=== PATIENT | female | born 1960 | race Caucasian/White ===

== ENCOUNTER 2018-01-29 09:38 | Outpatient (CLI) | payer SELFPAY ==
[2018-01-29 10:27] LABS: Abs Immature Grans 0.02 k/cumm (0.0-0.09); Absolute Basophil Count 0.08 k/cumm (0.0-0.2); Absolute Eosinophil Count 0.11 k/cumm (0.0-0.7); Absolute Lymphocyte Count 0.86 k/cumm (1.2-3.4); Absolute Neutrophil Count 5.59 k/cumm (1.2-6.7); Basophils % 1.1; Eosinophils % 1.5; HCT 31.1 % (36.0-46.0); Immature Grans % 0.3; Mean Corp. HGB Concentration 25.7 g/dL (32.0-36.0); Mean Corpuscular Hemoglobin 18.9 pg (27.0-33.0); Mean Corpuscular Volume 73.3 fL (80-95); Mean Platelet Volume 9.3 fL (8.0-11.0); Neutrophils % 78.1; Platelet Count 482 x1000/uL (130-400); RBC 4.24 m/cumm (4.00-5.20); RBC Distribution Width 29.9 % (11.7-14.6); Reticulocyte 2.7 % (0.5-2.4); White Blood Cell Count 7.16 k/cumm (4.4-10.8)
[2018-01-29 10:44] LABS: Anisocytosis 3+; Diff Comment RBC Morph Reviewed; Hypochromasia 3+; Microcytosis 3+; Polychromasia Present
[2018-01-29 10:45] LABS: Poikilocytes 3+
[2018-01-29 10:55] LABS: Anion Gap 9.8 mmol/L (3-11); BUN 15 mg/dL (7-18); Bilirubin, Total 0.4 mg/dL (0.2-1.0); CO2 26.2 mmol/L (21.0-32.0); CREATININE 0.76 mg/dL (0.55-1.02); Calcium 8.7 mg/dL (8.5-10.1); Chloride 106 mmol/L (98-107); Ferritin 18 ng/mL (8-388); Glucose 100 mg/dL (70-100); Potassium 3.8 mmol/L (3.5-5.1); Sodium 142 mmol/L (136-145)
[2018-01-29 10:57] LABS: Iron 10 ug/dL (50-175); Total Iron Binding Capacity 359 ug/dL (250-450); Transferrin Sat 3 % (15-50)
== END 2018-01-29 09:58 ==
PROVIDERS: PCP Nurse Practitioner Family; Visit Provider Nurse Practitioner Family
DX: R06.02 Shortness of breath (principal)
CPT/HCPCS: 36415; 80048; 86850; 86900; 86901; 86920; 82247; 82728; 83540; 83550; 84484; 85025; 85045

== ENCOUNTER 2018-01-29 11:02 | Emergency (ER) | payer SELFPAY ==
[2018-01-29 11:06] VITALS: BP 159/96; PULSE 88; RESP 18; TEMP 36.7; O2SAT 100
[2018-01-29 11:10] VITALS: RESP 18
--- NOTE | 2018-01-29 11:32 | ED.GENADUL_ITS ---
Discharge Plan Disposition Patient Disposition: OTHER Condition: Stable Discharge Details Chief Complaint: GenMedical Clinical Impression: Anemia, Chronic shortness of breath, Dyspnea on exertion Primary Care Provider: Teresa Trujillo ED Provider: Greta Vines Home Meds and New Rx's Prescriptions: Continue multivitamin 1 EACH tablet 1 tab PO DAILY RF: 0 ferrous sulfate 325 MG tablet 325 mg PO BID Qty: 60 RF: 0 Discharge Instructions Instructions: Dyspnea (ED), Anemia (ED) Additional Instructions: Go directly to the infusion room for your blood transfusion today. Call your primary care doctor's office today to order a blood test to recheck your hemoglobin for reevaluation in the office if needed. Return immediately to the emergency department with any worsening or new concerning symptoms. Discharge Data Discharge Physician: Greta Vines Medical Decision Making 57-year-old female with a history of iron deficiency anemia who presented from the PCP office for blood transfusion. Hemoglobin today per lab of 8. Patient chronic dyspnea on exertion for the past few weeks. She also admits to occasional left-sided chest burning, none at present. Discussed with patient at length the workup for this complaint in the emergency department. Patient states she feels that her symptoms are consistent with her previous anemia requiring a blood transfusion. I discussed with patient that with her occasional left-sided chest burning, and as she is present in the emergency department, an additional workup would include troponin, EKG and chest x-ray in addition to possible d-dimer due to her history of DVT. She states her history of DVT was several years ago that occurred after a blood transfusion, and she states she has chronic right leg swelling but states is no worse than usual. Patient would rather not have a d-dimer or chest x-ray at this time. Patient's vitals are within normal limits, she is in no acute respiratory distress and no other DVT/PE risk factors so I feel that this is reasonable. I discussed with patient the risks of and disability to a possible PE or additional respiratory cause and she is understanding and aware and would rather hold on these tests at this time. She is agreeable to a troponin and EKG. Patient had outpatient labs done today through PCP and note hemoglobin of 8 with normal white blood cell count and BMP. 1215 --troponin negative. EKG notes a rate of 79, sinus, left anterior fascicular block, no acute ST elevation or depression, and no acute change compared to previous. Discussed with infusion center, and they are agreeable to take patient for transfusion. Will order 1 unit PRBC transfusion and send to infusion room. Indra/w Shivani, nurse management and she will d/w [facility] regarding future plans for patients that may only need blood transfusion, to consider sending to infusion center, rather than incuring ER visit cost for patient. Patient to call her doctor's office today to schedule follow-up appointment for reevaluation and for recheck of her hemoglobin in the next few days. HPI General Mode of arrival: ambulatory . Date/Time Provider Initiated Documentation: 01/29/18 11:12 . Limitations to Documentation: no limitations . Information obtained by: patient . HPI Narrative: Patient is a 57-year-old female with a history of iron deficiency anemia with previous blood transfusions who presents for a blood transfusion. Patient states she has been having dyspnea on exertion for the past few weeks and discussed with her primary care doctor whom she saw in the office today. Hemoglobin at [facility] was 7.5. Patient was sent to the hospital for outpatient labs which noted a hemoglobin of 8. Patient was told to come to the emergency department for blood transfusion. Patient does admit to occasional left-sided chest burning states this is occurred only a few times at random and denies any at present. Related Data Home Medications Medication Instructions Recorded Confirmed multivitamin 1 tab PO DAILY 08/17/15 01/29/18 ferrous sulfate 325 mg PO BID #60 tab 08/18/15 01/29/18 Previous Rx's Medication Instructions Recorded ferrous sulfate 325 mg PO BID #60 tab 08/18/15 Allergies Allergy/AdvReac Type Severity Reaction Status Date / Time No Known Allergies Allergy Unverified 01/29/18 11:09 General Stated Complaint: GenMedical MEAGHAN: 3 Review of Systems Review of Systems All systems reviewed & are unremarkable except as noted in HPI and below Constitutional Denies chills, Denies excessive sweating, Denies fatigue, Denies fever(s), Denies weakness and Denies weight loss Eyes Reports system reviewed and no additional complaints, except as docu and Denies blurry vision ENT Denies vertigo, Denies dizziness, Denies otalgia, Denies nasal congestion, Denies sore throat and Denies throat swelling Cardiovascular Denies chest pain, Denies syncope, Denies rapid heart rate and Reports dyspnea Respiratory Reports dyspnea Gastrointestinal Denies abdominal pain, Denies diarrhea and Denies vomiting Genitourinary Denies hematuria, Denies dysuria and Denies flank pain Musculoskeletal Denies back pain and Denies joint swelling Integumentary/Breasts Denies lesions and Denies rash Neurologic Denies behavioral changes, Denies confusion, Denies vertigo, Denies dizziness, Denies syncope and Denies weakness Psychiatric Denies behavioral changes, Denies confusion and Denies depression Endocrine Denies excessive sweating and Denies fatigue Hematologic/Lymphatic Denies easy bruising and Denies lymphadenopathy Allergic/Immunologic Denies throat swelling PFSH Arthralgia DVT (deep venous thrombosis) Inguinal hernia Iron deficiency anemia Obesity (BMI 35.0-39.9 without comorbidity) Scoliosis Uterine fibroid Family History Mother Diabetes Anemia Father Diabetes Other Emphysema lung Colonoscopy - MAC EGD - MAC colo/egd, Dr Hebert 10/03/15 Family History Mother Diabetes Anemia Father Diabetes Other Emphysema lung Medical History Arthralgia DVT (deep venous thrombosis) Inguinal hernia Iron deficiency anemia Obesity (BMI 35.0-39.9 without comorbidity) Scoliosis Uterine fibroid Social History Smoking/Tobacco Use Status: Never Surgical History Colonoscopy - MAC EGD - MAC colo/egd, Dr Hebert 10/03/15 Social History Smoking/Tobacco Use Status: Never Exam Const General: cooperative, healthy appearing and no acute distress [facility] Head: normal to inspection Mouth: oral mucosae normal Eyes General: appearance normal, both eyes and all related structures Neck Neck: normal visual inspection Resp Effort & Inspection: normal respiratory effort and able to speak in complete sentences Cardio Rate: regular rate Rhythm: regular rhythm GI Palpation: soft, not firm, not rigid and nontender Auscultation: normal bowel sounds Skin General skin exam: no rashes or lesions noted Neuro General: alert, awake and oriented x3 Motor: muscle tone normal throughout Extrem General: edema (<1+ b/l LE, R worse than L) Psych Appearance: grossly normal Affect: normal affect Course Vital Signs Temperature 98.1 F 01/29/18 11:06 Pulse 88 01/29/18 11:06 Respiratory Rate 18 01/29/18 11:06 Blood Pressure 159/96 H 01/29/18 11:06 Pulse Oximetry 100 01/29/18 11:06 Temperature 98.1 F 01/29/18 11:06 Temperature Source Skin 01/29/18 11:06 Pulse 88 01/29/18 11:06 Respiratory Rate 18 01/29/18 11:10 Respiratory Effort Splinting 01/29/18 11:10 Respiratory Depth Normal 01/29/18 11:10 Respiratory Pattern Normal 01/29/18 11:10 Blood Pressure 159/96 H 01/29/18 11:06 Blood Pressure Position Sitting 01/29/18 11:06 Pulse Oximetry 100 01/29/18 11:06 Oxygen Delivery Method Room Air 01/29/18 11:06 Oxygen Flow Rate 0 01/29/18 11:06
[2018-01-29 12:12] LABS: Troponin I < 0.02 ng/mL (0.00-0.06)
== END 2018-01-29 13:10 | disposition other institution (70) ==
PROVIDERS: Emergency Provider Physician Assistant; PCP Nurse Practitioner Family
DX: D50.9 Iron deficiency anemia, unspecified (principal); R00.0 Tachycardia, unspecified
CPT/HCPCS: 86850; 86900; 86901; 86920; 93005; 99283; 84484; 93010

== ENCOUNTER 2018-01-29 13:09 | Outpatient (RCR) | payer MEDICAID, SELFPAY ==
[2018-01-29 13:36] VITALS: BP 115/71; PULSE 84; RESP 18; TEMP 36.7; O2SAT 98
[2018-01-29 13:38] VITALS: BP 126/78; PULSE 85; RESP 18; TEMP 36.5; O2SAT 99
[2018-01-29 13:53] VITALS: BP 153/73; PULSE 81; RESP 18; TEMP 36.4; O2SAT 97
[2018-01-29 14:23] VITALS: BP 122/65; PULSE 82; RESP 18; TEMP 36.6; O2SAT 97
[2018-01-29 15:19] VITALS: BP 129/62; PULSE 92; RESP 14; TEMP 36.3; O2SAT 99
== END 2018-02-24 23:59 | disposition home or self-care (01) ==
LOC: INF 13:09
PROVIDERS: PCP Nurse Practitioner Family; Visit Provider Physician Assistant
DX: D64.9 Anemia, unspecified (principal)
CPT/HCPCS: 36430; 86850; 86900; 86901; 86920; P9016

== ENCOUNTER 2018-02-05 01:37 | Outpatient (CLI) | payer MEDICAID, SELFPAY ==
--- NOTE | 2018-02-05 08:39 | DI.RAD_ITS ---
SYMPTOM/DIAGNOSIS: SOB, R06.02 FRONTAL AND LATERAL CHEST: No priors. There is poor inspiration. The heart size appears at the upper limits of normal in size. There is tortuosity of the thoracic aorta. There is a large hiatal hernia present. There are increased lung markings in the left perihilar region suspicious for an infiltrate. The right lung is clear. No effusions or pneumothoraces are identified. No findings to suggest congestive heart failure. Degenerative changes are seen in the spine. IMPRESSION: Left perihilar infiltrate. This may represent pneumonia or atelectasis. Please correlate clinically.
[2018-02-05 10:02] LABS: D-Dimer 1309 ng/mlFEU (<500)
[2018-02-05 10:43] LABS: NT-proBNP 232 pg/mL
== END 2018-02-05 01:57 ==
PROVIDERS: PCP Nurse Practitioner Family; Visit Provider Nurse Practitioner Family
DX: R06.02 Shortness of breath (principal); R91.8 Other nonspecific abnormal finding of lung field
CPT/HCPCS: 36415; 71046; 83880; 85379

== ENCOUNTER 2018-07-23 00:55 | Outpatient (CLI) | payer BC, SELFPAY ==
--- NOTE | 2018-07-23 17:06 | DI.MAMMO_ITS ---
SYMPTOM/DIAGNOSIS: SCREENING, Z12.31 MAMMOGRAMS: Mammograms were interpreted according to the usual protocol including computer analysis with CAD system, tomosynthesis and C view imaging. The breast tissue is primarily of fatty radiodensity. There is no evidence of a mass. There are no suspicious calcifications. There has been no significant interval change when compared with prior images. IMPRESSION: No evidence for malignancy, category 1. Yearly screening mammography is recommended. Breast density, category A. SA ASSESSMENT OF FINDINGS: Negative. Category 1. Patient will receive a letter notifying them of these results. BI-RAD category A. The breasts are almost entirely fatty.
== END 2018-07-23 01:15 ==
PROVIDERS: PCP Nurse Practitioner Family; Visit Provider Nurse Practitioner Family
DX: Z12.31 Encounter for screening mammogram for malignant neoplasm of breast (principal)
CPT/HCPCS: 77063; 77067

== ENCOUNTER 2018-12-10 10:03 | Outpatient (REF) | payer BC, SELFPAY ==
[2018-12-10 12:30] LABS: Abs Immature Grans 0.03 k/cumm (0.0-0.09); Absolute Basophil Count 0.05 k/cumm (0.0-0.2); Absolute Eosinophil Count 0.14 k/cumm (0.0-0.7); Absolute Lymphocyte Count 1.14 k/cumm (1.2-3.4); Absolute Monocyte Count 0.51 k/cumm (0.11-0.7); Absolute Neutrophil Count 3.95 k/cumm (1.2-6.7); Basophils % 0.9; Eosinophils % 2.4; HCT 45.8 % (36.0-46.0); HGB 14.4 g/dL (12.0-15.5); Immature Grans % 0.5; Lymphocytes % 19.6; Mean Corp. HGB Concentration 31.4 g/dL (32.0-36.0); Mean Corpuscular Hemoglobin 27.8 pg (27.0-33.0); Mean Corpuscular Volume 88.4 fL (80-95); Mean Platelet Volume 10.3 fL (8.0-11.0); Monocytes % 8.8; Neutrophils % 67.8; Platelet Count 347 x1000/uL (130-400); RBC 5.18 m/cumm (4.00-5.20); RBC Distribution Width 15.4 % (11.7-14.6); White Blood Cell Count 5.82 k/cumm (4.4-10.8)
[2018-12-10 13:51] LABS: Iron 78 ug/dL (50-175); Total Iron Binding Capacity 291 ug/dL (250-450); Transferrin Sat 27 % (15-50)
== END 2018-12-10 10:23 ==
LOC: NCHCN 10:03
PROVIDERS: PCP Nurse Practitioner Family; Visit Provider Nurse Practitioner Family
DX: D64.9 Anemia, unspecified (principal); D47.3 Essential (hemorrhagic) thrombocythemia; R53.83 Other fatigue
CPT/HCPCS: 82728; 83540; 83550; 85025

== ENCOUNTER 2019-03-18 12:13 | Outpatient (REF) | payer BC, SELFPAY ==
--- NOTE | 2019-03-18 09:00 | PAPFT_PTH ---
PATIENT: Lauren Paula [facility] U#:[id number] AGE/SX: 58/F ROOM: RE03/18/[address]: Aysha Palencia : 1960 BED: DIS: 03/18/2019 SPEC #: [id number] RECD: 03/18/19 12:56 STATUS: AMBER RECristela #: [id number] LAUREL: 03/18/19 09:[address]: Aysha Palencia DEPT: [facility] Cytology RECD BY: Jennifer Cheatham ENTERED: 03/18/19 12:56 SP TYPE: PAPFT OTHR DR: Teresa Trujillo Tissues: 1 - CX/ENDOCX FOR PAP SMEARS Procedures: PAP THIN PREP/U[facility] Screening HPV DNA PROBE Comments: [id number]
== END 2019-03-18 12:33 ==
LOC: NCHCN 12:13
PROVIDERS: PCP Nurse Practitioner Family; Visit Provider Nurse Practitioner Family
DX: Z00.00 Encounter for general adult medical examination without abnormal findings (principal); Z12.4 Encounter for screening for malignant neoplasm of cervix; Z01.419 Encounter for gynecological examination (general) (routine) without abnormal findings
CPT/HCPCS: 88142; 87624

== ENCOUNTER 2019-07-03 09:33 | Outpatient (REF) | payer BC, SELFPAY ==
[2019-07-03 21:02] LABS: HCT 42.4 % (36.0-46.0); HGB 13.5 g/dL (12.0-15.5); Mean Corp. HGB Concentration 31.8 g/dL (32.0-36.0); Mean Corpuscular Hemoglobin 28.2 pg (27.0-33.0); Mean Corpuscular Volume 88.7 fL (80-95); Mean Platelet Volume 10.2 fL (8.0-11.0); Platelet Count 359 x1000/uL (130-400); RBC 4.78 m/cumm (4.00-5.20); RBC Distribution Width 16.2 % (11.7-14.6); White Blood Cell Count 5.82 k/cumm (4.4-10.8)
[2019-07-03 21:18] LABS: Iron 293 ug/dL (50-170); Total Iron Binding Capacity 298 ug/dL (250-450); Transferrin Sat 98 % (15-50)
[2019-07-03 21:21] LABS: ALT 18 U/L (14-59); AST 19 U/L (15-37); Calculated LDL 119 mg/dL (<100); Cholesterol 179 mg/dL (<200); HDL Cholesterol 51 mg/dL (40-60); Triglyceride 48 mg/dL (<150)
== END 2019-07-03 09:53 ==
LOC: NCHCN 09:33
PROVIDERS: PCP Nurse Practitioner Family; Visit Provider Nurse Practitioner Family
DX: Z13.220 Encounter for screening for lipoid disorders (principal); D64.9 Anemia, unspecified; D47.3 Essential (hemorrhagic) thrombocythemia
CPT/HCPCS: 80061; 85027; 83540; 83550; 84450; 84460

== ENCOUNTER 2020-07-05 21:23 | Outpatient (REF) | payer BC, SELFPAY ==
[2020-07-05 21:02] LABS: HCT 41.2 % (36.0-46.0); HGB 12.4 g/dL (11.2-15.7); MCH 25.9 pg (27.0-33.0); MCHC 30.1 % (32.0-36.0); MPV 10.1 fL (8.0-11.0); Platelet Count 402 10^3/uL (130-400); RBC 4.79 10^6/uL (3.93-5.22); RDW 15.3 % (11.7-14.6); RDW-SD 48.3 fL; WBC 6.54 10^3/uL (4.4-10.8)
[2020-07-05 21:07] LABS: Anion Gap 8.9 mmol/L (3-11); BUN 14 mg/dL (7-18); CO2 27.1 mmol/L (21.0-32.0); CREATININE 0.8 mg/dL (0.55-1.02); Calcium 8.9 mg/dL (8.5-10.1); Chloride 105 mmol/L (98-107); Glucose 93 mg/dL (74-106); Potassium 4.5 mmol/L (3.5-5.1); Sodium 141 mmol/L (136-145)
== END 2020-07-05 21:24 | disposition home or self-care (01) ==
LOC: NCHCN 21:23
PROVIDERS: PCP Nurse Practitioner Family; Visit Provider Nurse Practitioner Family
DX: Z00.00 Encounter for general adult medical examination without abnormal findings (principal); Z13.228 Encounter for screening for other metabolic disorders; Z13.0 Encounter for screening for diseases of the blood and blood-forming organs and certain disorders involving the immune mechanism
CPT/HCPCS: 80048; 85027

== ENCOUNTER 2021-11-24 18:40 | Outpatient (REF) | payer BC, SELFPAY ==
[2021-11-24 19:13] LABS: Abs Immature Grans 0.06 10^3/uL (0.0-0.06); Absolute Eosinophil Count 0.16 10^3/uL (0.0-0.7); Absolute Lymphocyte Count 1.32 10^3/uL (1.2-3.4); Absolute Monocyte Count 0.78 10^3/uL (0.1-0.8); Absolute Neutrophil Count 6.74 10^3/uL (1.2-6.7); Basophils % 1.1; Eosinophils % 1.7; HCT 32.9 % (36.0-46.0); HGB 8.8 g/dL (11.2-15.7); Immature Grans % 0.7; Lymphocytes % 14.4; MCH 18.6 pg (27.0-33.0); MCHC 26.7 % (32.0-36.0); MCV 70 fL (80-95); Monocytes % 8.5; Neutrophils % 73.6; Platelet Count 435 10^3/uL (130-400); RBC 4.73 10^6/uL (3.93-5.22); RDW 33.5 % (11.7-14.6); RDW-SD 77.9 fL; WBC 9.16 10^3/uL (4.4-10.8)
[2021-11-24 19:38] LABS: Anisocytosis 2+; Hypochromasia 3+; Microcytosis 3+; Polychromasia Present
[2021-11-24 20:27] LABS: Iron 17 ug/dL (50-170); Total Iron Binding Capacity 375 ug/dL (250-450); Transferrin Sat 5 % (15-50)
== END 2021-11-24 18:41 | disposition home or self-care (01) ==
LOC: NCHCN 18:40
PROVIDERS: PCP Nurse Practitioner Family; Visit Provider Nurse Practitioner Family
DX: D64.9 Anemia, unspecified (principal)
CPT/HCPCS: 83540; 83550; 85025

== ENCOUNTER 2021-12-15 14:28 | Outpatient (REF) | payer BC, SELFPAY ==
[2021-12-15 14:59] LABS: HCT 36.1 % (36.0-46.0); HGB 9.9 g/dL (11.2-15.7); MCV 77 fL (80-95); Platelet Count 416 10^3/uL (130-400); RBC 4.72 10^6/uL (3.93-5.22); WBC 6.64 10^3/uL (4.4-10.8)
[2021-12-15 15:22] LABS: Ferritin 41 ng/mL (8-252)
[2021-12-15 15:24] LABS: MCHC 27.4 % (32.0-36.0)
[2021-12-15 16:10] LABS: Iron 22 ug/dL (50-170)
== END 2021-12-15 14:29 | disposition home or self-care (01) ==
LOC: NCHCN 14:28
PROVIDERS: PCP Nurse Practitioner Family; Visit Provider Family Medicine
DX: D64.9 Anemia, unspecified (principal)
CPT/HCPCS: 85027; 82728; 83540

== ENCOUNTER 2022-06-22 14:41 | Outpatient (REF) | payer BC, SELFPAY ==
[2022-06-22 21:20] LABS: HCT 45.5 % (36.0-46.0); HGB 14.3 g/dL (11.2-15.7); MCH 27.5 pg (27.0-33.0); MCHC 31.4 % (32.0-36.0); MCV 88 fL (80-95); MPV 10.1 fL (8.0-11.0); Platelet Count 310 10^3/uL (130-400); RDW 15.4 % (11.7-14.6); RDW-SD 50.2 fL; WBC 6.25 10^3/uL (4.4-10.8)
[2022-06-22 21:32] LABS: Hemoglobin A1C 5.8 % (<5.7); Iron 38 ug/dL (50-170); Total Iron Binding Capacity 285 ug/dL (250-450); Transferrin Sat 13 % (15-50)
[2022-06-22 22:02] LABS: ALT 24 U/L (14-59); AST 18 U/L (15-37); Albumin 3.7 g/dL (3.4-5.0); Alkaline Phosphatase 82 U/L (46-116); Anion Gap 8.2 mmol/L (3-11); BUN 15 mg/dL (7-18); Bilirubin, Total 0.3 mg/dL (0.2-1.0); CO2 27.8 mmol/L (21.0-32.0); CREATININE 0.9 mg/dL (0.55-1.02); Calcium 9.3 mg/dL (8.5-10.1); Calculated LDL 126 mg/dL (<100); Chloride 105 mmol/L (98-107); Cholesterol 187 mg/dL (<200); Estimated GFR 72.28 (mL/min/1.73m2); Glucose 107 mg/dL (74-106); HDL Cholesterol 47 mg/dL (40-60); Potassium 4.3 mmol/L (3.5-5.1); Sodium 141 mmol/L (136-145); TSH (W/Ref FT4) 1.61 uIU/mL (0.36-3.74); Total Protein 7.2 g/dL (6.4-8.2); Triglyceride 74 mg/dL (<150); Vitamin B12 410 pg/mL (193-986)
== END 2022-06-22 14:42 | disposition home or self-care (01) ==
LOC: NCHCN 14:41
PROVIDERS: PCP Nurse Practitioner Family; Visit Provider Nurse Practitioner Family
DX: D50.9 Iron deficiency anemia, unspecified (principal); E78.5 Hyperlipidemia, unspecified; R20.2 Paresthesia of skin; R73.09 Other abnormal glucose
CPT/HCPCS: 80053; 80061; 85027; 82607; 83036; 83540; 83550; 84443

== ENCOUNTER 2022-08-30 12:25 | Outpatient (REF) | payer BC, SELFPAY ==
[2022-08-30 15:16] LABS: HGB 13.8 g/dL (11.2-15.7); MCH 28.6 pg (27.0-33.0); MCHC 32.9 % (32.0-36.0); MCV 87 fL (80-95); Platelet Count 359 10^3/uL (130-400); RBC 4.82 10^6/uL (3.93-5.22); RDW 14.2 % (11.7-14.6); RDW-SD 45.3 fL; WBC 6.63 10^3/uL (4.4-10.8)
[2022-08-30 15:45] LABS: Iron 27 ug/dL (50-170)
== END 2022-08-30 12:26 | disposition home or self-care (01) ==
LOC: NCHCN 12:25
PROVIDERS: PCP Nurse Practitioner Family; Visit Provider Nurse Practitioner Family
DX: D50.9 Iron deficiency anemia, unspecified (principal)
CPT/HCPCS: 85027; 83540

== ENCOUNTER 2023-02-27 16:09 | Outpatient (REF) | payer BC, SELFPAY ==
[2023-02-27 20:49] LABS: HCT 40.7 % (36.0-46.0); HGB 12.6 g/dL (11.2-15.7); MCH 26.4 pg (27.0-33.0); MCV 85 fL (80-95); MPV 9.6 fL (8.0-11.0); Platelet Count 384 10^3/uL (130-400); RBC 4.77 10^6/uL (3.93-5.22); RDW 16.2 % (11.7-14.6); RDW-SD 50.8 fL; WBC 8.27 10^3/uL (4.4-10.8)
[2023-02-27 20:58] LABS: Iron 98 ug/dL (50-170); Total Iron Binding Capacity 308 ug/dL (250-450); Transferrin Sat 32 % (15-50)
[2023-02-27 21:11] LABS: Ferritin 21 ng/mL (8-252)
== END 2023-02-27 16:10 | disposition home or self-care (01) ==
LOC: NCHCN 16:09
PROVIDERS: PCP Nurse Practitioner Family; Visit Provider Nurse Practitioner Family
DX: D50.9 Iron deficiency anemia, unspecified (principal)
CPT/HCPCS: 85027; 82728; 83540; 83550

== ENCOUNTER 2023-10-08 15:16 | Outpatient (REF) | payer BC, SELFPAY ==
--- OUTSIDE RECORDS SUMMARY | 2023-10-08 15:17 | XMS_ITS | Data Portability ---
Author Organization [place] - [facility], [facility] Address Ludin Uribe [facility] [place] [address] Assessment Encounter Date Assessment Date Assessment LastModified by Organization Details LastModified Time 09/04/2023 09/04/2023 09/04/2023: Irma hendrickson is here today with new onset right leg pain accompanied by mild shortness of breath and light headedness. She is anticoagulated on eliquis 2.5 mg twice daily however DVT and PE should be considered. She will go to [facility] today for d-dimer. I have also order US of the right leg due to calf size discrepancy. If d-dimer is negative I don't think we need to move forward with chest CTA. On exam today she has significant pain with palpation over the right greater trochanter potentially representing bursitis. We agree to move forward with non-emergent x-ray of the right hip. [email or web address] Not available 09/04/2023 10:47:56 Plan of Treatment Reminders Order Date Submit Date Provider Last Modified By Organization Details Last Modified Time Details Appointments hospital follow up 2023 11:30A M Not available Not available Not available Office Visit 30 2023 10:00A M Not available Not available Not available Lab hemoglobi n A1C, fingersti ck 2023 024 [email or web address] [facility], [address], [place], [address], 02/28/2023 11:45:38 noninvasi ve colorecta l cancer DNA + occult blood screening , QL, stool 2023 024 [email or web address] (Cologuard Orders Only), [address], [place], [address], 02/27/2023 23:30:42 CBC 2023 024 [email or web address] [facility] (Registration ), [address] [place] [address] [place], [address], 02/28/2023 11:45:38 iron + TIBC + ferritin, serum 2023 024 [email or web address] [facility] (Registration ), [address] [place] [address] [place], [address], 02/28/2023 11:45:38 CMP, serum or plasma [address] [facility], [address] [place] [address], [address], 09/24/2023 15:28:50 noninvasi ve colorecta l cancer DNA + occult blood screening , QL, stool 2023 024 [place] [address] [facility] (Cologuard Orders Only), [address], [address], [place], [address], 10/08/2023 07:19:03 D-dimer, quant, plasma [address] [facility], [address] [place] [address], [address], 09/04/2023 17:23:51 Referral None recorded. Procedures None recorded. Surgeries None recorded. Imaging XR, hip, unilatera l, 2 or [address] [facility] - Radiology, [address] [place] [address], [address], 09/09/2023 14:28:57 US, doppler, venous [address] - Radiology, [address] [place] [address], [address], 09/11/2023 08:33:17 Medication Orders None recorded. Patient TargetsNo targets recorded. Patient InstructionsNo instructions recorded. Reason for Referral None Reported. Results Created Date Observation Date Name Description Value Unit Range Abnormal Flag LastModifiedBy Organization Detail LastModifiedTime 03/01/2023 COLOG UARD cologuard result Cancel led - Duplic ate Order not applic able Not Available [facility] (Cologuard Orders Only) [address], [place], [address], 03/01/2023 12:59:23 02/27/2023 COLOG UARD cologuard result Cancel led - Duplic ate Order not applic able Not Available [facility] (Cologuard Orders Only) [address], [place], [address], 02/27/2023 23:30:41 02/27/19 24 02/27/2023 COMPL ETE BLOOD COUNT NO DIFF WBC 8.27 10_3/ uL 4.4-10 .8 normal Not Available [address] [place], [address] 02/27/2023 20:55:32 02/27/19 24 02/27/2023 COMPL ETE BLOOD COUNT NO DIFF RBC 4.77 10_6/ uL 3.93-5 .22 normal Not Available [address] [place], [address] 02/27/2023 20:55:32 02/27/19 24 02/27/2023 COMPL ETE BLOOD COUNT NO DIFF HGB 12.6 g/dL 11.2-1 5.7 normal Not Available [address] [place], [address] 02/27/2023 20:55:32 02/27/19 24 02/27/2023 COMPL ETE BLOOD COUNT NO DIFF HCT 40.7 % 36.0-4 6.0 normal Not Available [address] [place], [address] 02/27/2023 20:55:32 02/27/19 24 02/27/2023 COMPL ETE BLOOD COUNT NO DIFF MCV 85 fL 80-95 normal Not Available Chuy gamino [address] [place], [address] 02/27/2023 20:55:32 02/27/19 24 02/27/2023 COMPL ETE BLOOD COUNT NO DIFF MCH 26.4 pg 27.0-3 3.0 low Not Available [address] [place], [address] 02/27/2023 20:55:32 02/27/19 24 02/27/2023 COMPL ETE BLOOD COUNT NO DIFF MCHC 31.0 % 32.0-3 6.0 low Not Available [address] [place], [address] 02/27/2023 20:55:32 02/27/19 24 02/27/2023 COMPL ETE BLOOD COUNT NO DIFF RDW 16.2 % 11.7-1 4.6 high Not Available [address] [place], [address] 02/27/2023 20:55:32 02/27/19 24 02/27/2023 COMPL ETE BLOOD COUNT NO DIFF platelet count 384 10_3/ uL 130-40 0 normal Not Available [address] [place], [address] 02/27/2023 20:55:32 02/27/19 24 02/27/2023 COMPL ETE BLOOD COUNT NO DIFF MPV 9.6 fL 8.0-11 .0 normal Not Available [address] [place], [address] 02/27/2023 20:55:32 02/27/19 24 02/27/2023 IRON/ IBCT iron 98 ug/dL 50-170 normal Not Available Chuy gamino [address] [place], [address] 02/27/2023 21:01:07 02/27/19 24 02/27/2023 IRON/ IBCT total iron binding capacity 308 ug/dL 250-45 0 normal Not Available [address] [place], [address] 02/27/2023 21:01:07 02/27/19 24 02/27/2023 IRON/ IBCT transferrin sat 32 % 15-50 normal Not Available Silvinoer n [facility] [address] [place], [address] 02/27/2023 21:01:07 02/27/19 24 02/27/2023 DREW TIN ferritin 21 NG/mL 8-252 normal Not Available Chuy gamino [facility] [address] [facility] [place], [address] 02/27/2023 21:14:10 02/27/19 24 02/27/2023 hemog lobin A1C, finge rstic k HGBA1C 6.6 % <5.7 Not Available [address], [address], 02/27/2023 13:21:23 09/09/19 24 09/09/2023 XR, hip, unila teral , 2 or 3 view No observ ation record ed. [email or web address] [facility] [address] [place], [address], 09/11/2023 15:12:02 09/09/19 24 09/09/2023 US, duple x, venou s, lower extre mity, unila teral No observ ation record ed. [email or web address] [facility] [address] [place], [address], 09/11/2023 15:11:18 Result Notes None recorded. Problems Name Status Onset Date Resolution Date Notes Provider Name and Address Organization Details Recorded Time History of thromboembolis m Active 2011 Problem Code: Z86.718; Problem Code Type: ICD-10; [address], [place], [address], [facility] 4 12:51:44 Inguinal hernia Active 2011 Problem Code: K40.90; Problem Code Type: ICD-10; [address], [place], [address], [facility] 4 12:52:37 Uterine leiomyoma Active 2011 Problem Code: D25.9; Problem Code Type: ICD-10; [address], [place], [address], [facility] 4 12:52:31 Scoliosis deformity of spine Active 201103/19/2019 - Comments only - Leann EGAN - reports the back pain has not been an issue recently. Problem Code: M41.9; Problem Code Type: ICD-10; [address], [place], [address], [facility] 4 12:51:56 Carpal tunnel syndrome of right wrist Active 2011 Problem Code: G56.01; Problem Code Type: ICD-10; [address], [place], [address], [facility] 4 12:51:50 Obesity Active 201312/29/2019 - Comments only - Leann EGAN - Lauren has been trying to reduce carbohydrate intake. Problem Code: E66.9; Problem Code Type: ICD-10; [address], [place], [address], [facility] 4 12:52:01 Cramp in lower limb associated with sleep Active 201412/29/2019 - Comments only - Leann EGAN - Improved with increased hydration. Problem Code: G47.62; Problem Code Type: ICD-10; [address], [place], [address], [facility] 4 12:52:06 History of pulmonary embolus Active 2017 Problem Code: Z86.711; Problem Code Type: ICD-10; [address], [place], [address], [facility] 4 12:51:39 Long-term current use of anticoagulant Active 201707/05/2020 - Comments only - Leann EGAN - Continue Eliquis. No bleeding or bruising issues at this time. BMP for medication monitoring. Problem Code: Z79.01; Problem Code Type: ICD-10; [address], [place], [address], [facility] 4 12:49:33 Pain in thoracic spine Active 201806/22/2022 - Comments only - Leann EGAN - Patient states that back pain has not been an issue lately. Problem Code: M54.9; Problem Code Type: ICD-10; [address], [place], [address], [facility] 4 12:52:50 Essential thrombocythemi a Active 201812/29/2019 - Comments only - Leann EGAN - Normal platlet count 06/2019. Problem Code: D47.3; Problem Code Type: ICD-10; [address], [place], [address], [facility] 4 12:51:11 Iron deficiency anemia Active 2021 Problem Code: D50.9; Problem Code Type: ICD-10; [address], [place], [address], [facility] 4 12:50:58 Hyperlipidemia Active 202206/22/2022 - Comments only - Leann EGAN - Lipids with today's bloodwork. Not fasting. Patient did have cheerios this morning. Problem Code: E78.5; Problem Code Type: ICD-10; [address], [place], [address], [facility] 4 12:52:22 Prediabetes Active 2022 Problem Code: R73.03; Problem Code Type: ICD-10; [address], [place], [address], [facility] 4 12:52:11 Deep venous thrombosis Completed 201111/21/2022 11/01/2016 - Comments only - Teresa Trujillo APRN - monitor for recurrences. [address], [place], [address], [facility] 4 12:53:19 Pulmonary embolism Completed 201711/21/2022 Problem Code: I26.99; Problem Code Type: ICD-10; [address], [place], [address], [facility] 4 12:54:14 Blood chemistry outside reference range Active [address], [place], [address], [facility] 4 12:50:50 Pain in right lower limb Active [address], [place], [address], [facility] 4 09:37:35 Pain in right hip joint Active [address], [place], [address], [facility] 4 09:37:44 Anemia Active [address], [place], [address], [facility] 4 11:52:15 Problem Notes None recorded. Procedures Surgical History None recorded. Imaging Results Imaging Date Name Status [facility]Modified by [facility] Details LastModified Time 09/09/2023 XR, hip, unilateral, 2 or 3 view completed [email or web address] [facility] [address] [facility], [place], [address], 09/11/2023 15:12:02 09/09/2023 US, duplex, venous, lower extremity, unilateral completed [email or web address] [facility] [address] [facility], [place], [address], 09/11/2023 15:11:18 Procedure Notes None recorded. Medical Equipment None Reported. Medications Name Sig Start Date Stop Date Status Note LastModified by Organization Details LastModified Time famotidin e 40 mg tablet Take 1 tablet by mouth every night as needed 06/22 completed Not Available Not Available Not Available pantopraz ole 40 mg tablet,de layed release TAKE 1 TABLET BY MOUTH TWICE DAILY active Not Available Not Available No t Available erythromy radhika 5 mg/gram (0.5 %) eye ointment Apply 1 a thin layer into affected eye four times a day 1 cm ribbon into affected eye 4 times daily for 7 days 07/05 completed Not Available Not Available Not Available ferrous gluconate 240 mg (27 mg iron) tablet Take 1 tablet by mouth once a day 07/29 completed Not Available Not Available Not Available warfarin 5 mg tablet Take 1 1/2 TABLET AT 5 pm by mouth daily or as directed 02/21 completed Not Available Not Available Not Available Aspir-81 mg tablet,de layed release take 1 tab daily 08/18 completed Not Available Not Available Not Available multivita min capsule take 1 tab daily 06/29 completed Not Available Not Available Not Available enoxapari n 100 mg/mL subcutane ous syringe Inject 150 mg 1mg/kg subcutan eously daily until INR 2.0 - 3.0 02/12 completed Not Available Not Available Not Available Asprin Ec Low Dose 81 mg tablet,de layed release 1TAB daily 2011 active Not Available Not Available Not Avai lable cyclobenz aprine 5 mg tablet Take one tablet by mouth every 8 hours as needed for back pain. 04/07 completed ER Not Available Not Available Not Available iron 1TAB daily 08/30 completed Not Available Not Available Not Available Multivita mins 1 TAB daily 2011 active Not Available Not Available Not Avai lable FeroSul 325 mg (65 mg iron) tablet TAKE 1 TABLET BY MOUTH ONCE DAILY active patient is not taking this one. she takes a OTC one that is a lower dose Not Available Not Available Not Available Xarelto 10 mg tablet Take one tablet by mouth daily. 03/18 completed Not Available Not Available Not Available Eliquis 5 mg tablet Take 1 tablet by mouth twice daily. 2017 active Not Available Not Available Not Avai lable Eliquis 2.5 mg tablet Take 1 tablet by mouth twice daily 2023 active held til after EDG tomorrow 10/08 Not Available Not Available Not Available Vitals Date Recorded Body height Body mass index (BMI) Body weight Body temperature Heart rate Oxygen saturation Oxygen saturation in Arterial blood by Pulse oximetry Systolic blood pressure Diastolic blood pressure Provider Name and Address Organization Details Last Updated DateTime 4 161.29 cm 38.7 kg/m2 715256. 51 g 97.3 [degF] 78 /min 98 % 98 % 130 mm[Hg] 78 mm[Hg] CHIOMA SPANN MA [facility] 4 13:01:11 Date Recorded Body height Body mass index (BMI) Body weight Body temperature Oxygen saturation Oxygen saturation in Arterial blood by Pulse oximetry Heart rate Systolic blood pressure Diastolic blood pressure Provider Name and Address Organization Details Last Updated DateTime 4 161.29 cm 41 kg/m2 315265. 64 g 97.3 [degF] 99 % 99 % 60 /min 120 mm[Hg] 72 mm[Hg] Rafaela Chappell RN [facility] 4 09:12:04 Date Recorded Body height Body mass index (BMI) Body weight Body temperature Oxygen saturation Oxygen saturation in Arterial blood by Pulse oximetry Heart rate Systolic blood pressure Diastolic blood pressure Provider Name and Address Organization Details Last Updated DateTime 4 161.29 cm 40.8 kg/m2 269957. 61 g 97 [degF] 100 % 100 % 74 /min 138 mm[Hg] 86 mm[Hg] CHIOMA SPANN MA [facility] 11:33:49 Social History None recorded. Functional Status None recorded. Mental Status None recorded. Family History Relationship Description Onset Age of this Age Resolved Age Notes Mother Family history of di abetes mellitus type 1 Notes:*Problem: 05/08/13 Moth er: 64 , of ecoli infection. Type 2 DM, anemic Father: age 75, Type 2 DM, smoker, OA , emphysema Sisters: None Brothers: 2 brothers, one older and one younger, basically healthy Children: one son and one daughter healthy - son and john Family History of: Hypertension: Yes Hyperlipidemia: Yes Coronary heart disease: Yes Diabetes mellitus: Yes Breast cancer: No Colorectal cancer: No Prostate cancer: No Alcoholism: Yes Mental illness: No Other: No Medical History No medical history recorded. Gynecological HistoryNo gynecological history recorded. Obstetrics History GPAL:G 0 P 0 0 0 0 Immunizations Vaccine Type Date Status Provider Name and Address Organization Details Recorded Time COVID-19, mRNA, LNP-S, PF, rita-sucrose, 30 mcg/0.3 mL 02/27/2023 completed Latoya Cates RN [facility], [facility] 02/28/2023 08:57:17 Influenza, split virus, quadrivalent, PF 02/27/2023 completed [address], [place], [address], [facility] 02/27/2023 19:38:22 Td (adult), 2 Lf tetanus toxoid, preservative free, adsorbed 06/22/2022 completed Not Available [facility] 01/04/2023 05:24:45 Tdap 07/16/2012 completed Not Available [facility] 05:24:45 Influenza, split virus, quadrivalent, PF 12/15/2021 completed Not Available [facility] 01/04/2023 05:24:45 Influenza, split virus, quadrivalent, PF 12/29/2019 completed Not Available [facility] 01/04/2023 05:24:45 Influenza, split virus, quadrivalent, PF 01/23/2021 completed Not Available [facility] 01/04/2023 05:24:45 zoster recombinant 07/05/2020 completed Not Available [facility] 01/04/2023 05:24:45 zoster recombinant 12/15/2021 completed Not Available [facility] 01/04/2023 05:24:45 COVID-19, mRNA, LNP-S, PF, 100 mcg/0.5mL dose or 50 mcg/0.25mL dose 03/16/2020 completed Not Available [facility] 01/05/20 05:24:46 COVID-19, mRNA, LNP-S, PF, 100 mcg/0.5mL dose or 50 mcg/0.25mL dose 04/13/2020 completed Not Available [facility] 01/05/20 05:24:46 COVID-19, mRNA, LNP-S, PF, 100 mcg/0.5mL dose or 50 mcg/0.25mL dose 01/23/2021 completed Not Available [facility] 01/05/20 05:24:46 Past Encounters Encounter ID Performer Location Encounter Start Date Encounter Closed Date Diagnosis/Indication Diagnosis SNOMED-CT Code [id number] JIGNESH GUILLEN [address] [address] 02/27/2023 12:44:59 02/27/2023 15:47:13 Prediabetes 578403400 Iron defic iency anemia 90744291 Active or passive immunization 454412705 History of thromboembolism 487181567 Screening for malignant neoplasm of colon 980834350 [id number] JIGNESH GUILLEN [address] [address] 09/04/2023 08:50:33 09/04/2023 10:51:41 Screening for malignant neoplasm of colon 233872485 Pain in ri ght lower limb 762711117 Pain in ri ght hip joint 853812654320252 Prediabetes 924456654 [id number] Latoya Cates RN [address] [address] 10/08/2023 11:14:17 10/08/2023 12:09:57 Anemia 396499051 Health Concerns Section Related Observation LastModified by Organization Detai ls LastModified Time None Recorded Concern Status LastModified by Organization Details LastModified Time None Recorded Advance Directives Directive None Recorded Payers Encounter Date Sequence Insurance Name Policy Number Policy Rocha Covered Member ID Rocha Member ID Guarantor Name 02/27/2023 1 [place] [employer] [place] Lauren Paula [id number] Lauren Paula 09/04/2023 1 [place] Lauren Paula [id number] Lauren Paula Notes Date Note Type Note Provider Name and Address Organization Details Recorded Time 09/04/2023 text/html HPI Notes: For t he past couple of weeks Lauren has noticed right leg pain that is only noticeable at night. The pain sometimes feels as though it is originating in the lower leg and at other times feels as though it is originating in the hip. It has not been bothering her during the day. Since the pain started she feels more short of breath than her norm and has some light headedness. LEANN FRANCE, FIN[employer]PECTOR [employer] [address], [place], [address], [facility]. 09/04/2023 10:48:28 OBGyn Episode No OBEpisode recorded.
--- OUTSIDE RECORDS SUMMARY | 2023-10-08 15:17 | XMS_ITS | Encounter Summary ---
Author Organization [facility] Address [facility] [place] [address] Care Team Providers Care Commercial Sewing Instructor Name Role Phone RonnieMariam masonhryn [place]ERS Primary Care Provider [phone] Encounter Details Date Type Department Care Team (Late st Contact Info) Description 09/23/2023 Telephone [place] [phone] Indu Chauhan MD [facility] DR HEMATOLOGY/[place] [address] Social History Tobacco Use Types Packs/Day Years Used Date Smoking Tobacco: Never Smokeless Tobacco: Never Sex and Gender Information Value Date Recorded Sex Assigned at Not on file Gender Identity Not on file Sexual Orientation Not on file documented as of this encounter Miscellaneous Notes * Telephone Encounter - Indu Chauhan MD - 09/23/2023 6:08 PM EDT Got a page from [facility], on account of transfusion reaction on this patient after receiving 238mL of red blood cell. Developed hypotension BP of 80/50 from 110/55, chills, headache and nausea temperature where pretransfusion at 36.8 with transfusion 36.7 and posttransfusion 36.7. Recommended redirecting page to transfusion medicine, for further management recs. documented in this encounter Plan of Treatment Not on file documented as of this encounter Visit Diagnoses Not on filedocumented in this encounter Care Teams Commercial Sewing Instructor Relationship Specialty Start Date End Date Teresa Trujillo APRN [address] [place] [address] PCP - General Family Medicine 02/14/18 documented as of this encounter
--- OUTSIDE RECORDS SUMMARY | 2023-10-08 15:17 | XMS_ITS | Clinical Summary ---
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 Active apixaban (ELIQUIS) 5 mg Tablet Take 5 mg by mouth 2 times daily. Active Active Problems Problem Noted Date Diagnosed Date Acute pulmonary embolism with acute cor pulmonal e 04/29/2018 Recurrent deep vein thrombosis (DVT) 04/29/2018 Iron deficiency anemia 06/12/2010 Encounters Date Type Department Care Team Description 09/24/2023 12:44 PM EDT - 09/24/2023 11:59 PM EDT [place] [address] Discharge Disposition: Home 09/24/2023 [place] [address] Johnnie Chau MD 09/23/2023 9:47 AM EDT - 09/23/2023 11:59 PM EDT [place] [address] Discharge Disposition: Home 09/23/2023 Telephone [place] [address] Indu Chauhan MD 09/23/2023 Interpretation Only [address] [id number] Tracy Ye APRN 09/23/2023 Interpretation Only [address] [phone] Danie Albright MD 09/09/2023 Interpretation Only [address] [phone] Leann Palencia APRN 09/09/2023 Interpretation Only [address] [phone] Leann Palencia, ELISSA from Last 3 Months Social History Tobacco Use Types Packs/Day Years Used Date Smoking Tobacco: Never Smokeless Tobacco: Never Sex and Gender Information Value Date Recorded Sex Assigned at Not on file Gender Identity Not on file Sexual Orientation Not on file Last Filed Vital Signs Vital Sign Reading Time Taken Comments Blood Pressure 119/74 09/02/2018 10:58 AM EDT Pulse 56 09/02/2018 10:58 AM EDT Temperature 36.6 ??C (97.9 ??F) 09/02/2018 1 0:58 AM EDT Respiratory Rate 18 09/02/2018 10:5 8 AM EDT Oxygen Saturation 100% 09/02/2018 10: 58 AM EDT Inhaled Oxygen Concentration - - Weight 101.7 kg (224 lb 3.2 oz) 019 10:58 AM EDT Height 161.6 cm (5' 3.62) 09/02/2018 1 0:58 AM EDT Body Mass Index 38.94 09/02/2018 10:58 AM EDT Plan of Treatment Health Maintenance Due Date Last Done Comments CT Colonography 1960 Colonoscopy 1960 FIT DNA 1960 Sigmoidoscopy (10 year) with FIT yearly 1960 Sigmoidoscopy 1960 HIV screen 1978 Hepatitis C Screening 1978 Tdap adult 04/26/1979 Tetanus vaccine 04/26/1979 HPV test 1990 PAP Smear 1990 Breast Cancer Share Decision Needed 2000 Zoster vaccine (1 of 2) 2010 Colorectal Cancer Screening 04/10/2011 FIT 04/10/2011 04/10/2010 Advance Directive 04/26/2015 Influenza (Flu) vaccine (1 o f 1 - Influenza standard series) 10/27/2023 Breast Cancer screening 07/03/2024 07/03/2022, 07/03 Diabetes Screening (HgbA1C or Glucose) Discontinued , 03/28/2010 Covid-19 Vaccine Completed 02/27/2023, 01/23/2021 Procedures Procedure Name Priority Date/Time Associated Diagnosis Comments ANTIBODY SCREEN AGUSTINA Routine 09/23/2023 8:30 PM EDT TYPE AND SCREEN ([facility]) Routine 09/23/2023 8:30 PM EDT AB COMMENT Routine 09/23/2023 8:30 PM EDT ANTIBODY IDENTIFICATION Routine 09/23/19 24 8:30 PM EDT DIRECT ANTIGLOBULIN TEST Routine 09/23/2023 8:30 PM EDT XR CHEST ONE VIEW STAT 09/23/2023 5:4 9 PM EDT XR CHEST PA AND LATERAL STAT 09/23/19 11:33 AM EDT US LOWER EXTREMITY DUPLEX RIGHT Routine 09/09/2023 12:49 PM EDT XR HIP 2-3 VIEWS RIGHT Routine 12:28 PM EDT MAMMO SCREENING CAD BILATERAL Routine 07/03/2022 1:18 PM EDT COMPREHENSIVE METABOLIC PANEL STAT 06/13/2010 9:39 AM EDT FECAL OCCULT BLOOD, QUALITATIVE X3 Routine 04/10/2010 4:44 PM EST from Last 3 Months or Most Recently Relevant to Health Maintenance Results * Antibody Screen AGUSTINA (09/23/2023 8:30 PM EDT) AB SCREEN INTERP Negative [facility] 09/23/2023 8:30 PM EDT 09/23/2023 8:30 PM EDT Lab BLOOD BANK LAB ORDER AIR Performing Organization Address City/[facility] Co de Phone Number [facility] [place] [address] * Ab Comment (09/23/2023 8:30 PM EDT) [facility] Blood Bank Antibody Comment See Comments [facility] BLOOD BANK LABORATORY Comment:INTERPRETATION: A re d cell alloantibody to an unknown low-frequency antigen was identified in the patient specimen. All common clinically significant antibodies have been excluded. The clinical significance of this antibody cannot be determined. ? In the context of transfusion, only units that are crossmatch-compatible at the antiglobulin phase will be provided to minimize a risk of untoward reactions in vivo. These additional steps will add about 1 hour to unit preparation time, but compatible units should be available in our inventory. ? In the context of , it is not known whether this finding would be associated with hemolytic disease of the fetus/. Since this antibody appears to be directed against an unknown low-frequency antigen, antibody titers are not possible. Consider referral to a maternal- medicine specialist. Barbara Cervantes, Transfusion Medicine Physician 09/23/2023 8:30 PM EDT 09/23/2023 8:30 PM EDT Lab BLOOD BANK LAB ORDER ARI Performing Organization Address City/[facility]/ZIP Co de Phone Number [facility] [place] [address] * Antibody identification (09/23/2023 8:30 PM EDT) Ab Identified Anti-Low-I ncidence [facility] 09/23/2023 8:30 PM EDT 09/23/2023 8:30 PM EDT Lab BLOOD BANK LAB ORDER ARI [facility] [place] [address] * Type and screen ([facility]/CGP/VALERIO) (09/23/2023 8:30 PM EDT) ABORH Type O NEGATIVE [facility] Patient BB History Unneccessary [facility] Expires at [id number] on: 09-23-2023 [facility] Ab Screen Interp Negative [facility] 09/23/2023 8:30 PM EDT 09/23/2023 8:30 PM EDT Narrative [facility] - 09/23/2023 8:30 PM EDT This Type and Screen result is only valid at the [facility] Hospital Lab BLOOD BANK LAB ORDER ARI [facility] [place] [address] * Direct antiglobulin test (09/23/2023 8:30 PM EDT) CECY Negative [facility] 09/23/2023 8:30 PM EDT 09/23/2023 8:30 PM EDT Lab BLOOD BANK LAB ORDER ARI [facility] [place] [address] * XR Chest One View (09/23/2023 5:49 PM EDT) PT CLASS O DH RAD ADMITDTTM [id number] RAD PT RAD MD INFO [id number]^[place] n^Tracy^T DH RAD EXAM DESC XCXR1^XR Chest 1 View^RIS [facility] WORKSTATION ID [id number] [facility] Anatomical Region Laterality Modality Chest N/A Radiographic Christi ging 09/23/2023 5:49 PM EDT Impressions 09/23/2023 6:14 PM EDT * ??Low lung volumes * ??Interval development of pulmonary pulmonary vessel congestion and perihilar interstitial edema. * ??No evidence of alveolar edema. Thank you for letting us participate in the care of this patient. ??If you are a health care provider and have any questions regarding this report, please contact the number below. ??For patients who have questions please contact the health health careers instructor that requested your imaging first. ? Narrative 09/23/2023 6:14 PM EDT EXAMINATION: XR Chest 1 View CLINICAL HISTORY: blood transfution reaction TECHNIQUE: Single frontal view of the chest. One image. COMPARISON: Chest x-ray 09/23/2023. CT chest 11/16/2021. FINDINGS: Low lung volumes with bronchovascular crowding and exaggeration of the cardiomediastinal silhouette. Interval development of pulmonary pulmonary vessel congestion and perihilar interstitial edema. No pulmonary consolidation, pleural effusion or pneumothorax. Unchanged right mediastinal silhouette. Medium-sized hiatal hernia. Unchanged osseous structures. Paucity of bowel gas in the upper abdomen. Procedure Note Alen Carreon MD - 09/23/2023 EXAMINATION: XR Chest 1 View CLINICAL HISTORY: blood transfution reaction TECHNIQUE: Single frontal view of the chest. One image. COMPARISON: Chest x-ray 09/23/2023. CT chest 11/16/2021. FINDINGS: Low lung volumes with bronchovascular crowding and exaggeration of the cardiomediastinal silhouette. Interval development of pulmonary pulmonaryvessel congestion and perihilar interstitial edema. No pulmonary consolidation,pleural effusion or pneumothorax. Unchanged right mediastinal silhouette.Medium-sized hiatal hernia. Unchanged osseous structures. Paucity of bowel gas in theupper abdomen. IMPRESSION * Low lung volumes * Interval development of pulmonary pulmonary vessel congestion andperihilar interstitial edema. * No evidence of alveolar edema. Thank you for letting us participate in the care of this patient. If youare a health care provider and have any questions regarding this report,please contact the number below. For patients who have questions please contactthe health health careers instructor that requested your imaging first. Electronically signed by: Tonia Carreon MD, [facility]([phone]), at 09/23/2023 6:14 PM Tracy Bright Ephraim TELETRAY OPERATOR IMG DX ORDERABLES * XR Chest PA & Lateral (Generic) (09/23/2023 11:33 AM EDT) PT CLASS E RAD ADMITDTTM [id number] RAD PT RAD INFO [id number]^Broadw ater^Danie^Polo k RAD EXAM DESC XCXR2^XR Chest 2 Views^RIS [facility] WORKSTATION ID [id number] [facility] Anatomical Region Laterality Modality Chest N/A Radiographic Christi ging 09/23/2023 11:3 3 AM EDT Impressions 09/23/2023 12:07 PM EDT 1. Pulmonary hypoinflation without acute radiographic abnormality. 2. Persistent hiatal hernia and thoracic kyphosis with degeneration. Thank you for letting us participate in the care of this patient. ??If you are a health care provider and have any questions regarding this report, please contact the number below. ??For patients who have questions please contact the health health careers instructor that requested your imaging first. ? Electronically signed by: Elma Corral MD, [facility] ([phone]), at 09/23/2023 12:07 PM Narrative 09/23/2023 12:07 PM EDT EXAMINATION: XR Chest 2 Views CLINICAL HISTORY: Shortness of breath TECHNIQUE: PA and lateral chest radiographs (3 images) COMPARISON: Radiographs and CT chest November 16, 2021 FINDINGS: Hiatal hernia with air-fluid level in the retrocardiac space is unchanged. Lungs are hypoinflated. Linear, peripheral atelectasis at the left lung base. No pleural effusion, focal consolidation or pneumothorax. Persistent slight elevation of left hemidiaphragm compared with the right. Cardiomediastinal contours are normal. Central pulmonary vasculature is slightly prominent. No free air below the diaphragm or focal extrathoracic soft tissue abnormality. Diffuse bone demineralization with exaggerated thoracic kyphosis. Multilevel thoracic spondylosis. No fracture. Procedure Note Elma Corral MD - 09/23/2023 EXAMINATION: XR Chest 2 Views CLINICAL HISTORY: Shortness of breath TECHNIQUE: PA and lateral chest radiographs (3 images) COMPARISON: Radiographs and CT chest November 16, 2021 FINDINGS: Hiatal hernia with air-fluid level in the retrocardiac space isunchanged. Lungs are hypoinflated. Linear, peripheral atelectasis at the left lungbase. No pleural effusion, focal consolidation or pneumothorax. Persistent slight elevation of left hemidiaphragm compared with the right. Cardiomediastinal contours are normal. Central pulmonary vasculature isslightly prominent. No free air below the diaphragm or focal extrathoracic soft tissueabnormality. Diffuse bone demineralization with exaggerated thoracic kyphosis.Multilevel thoracic spondylosis. No fracture. IMPRESSION 1. Pulmonary hypoinflation without acute radiographic abnormality. 2. Persistent hiatal hernia and thoracic kyphosis with degeneration. Thank you for letting us participate in the care of this patient. If youare a health care provider and have any questions regarding this report,please contact the number below. For patients who have questions please contactthe health health careers instructor that requested your imaging first. Electronically signed by: Elma Corral MD, [facility]([phone]), at 09/23/2023 12:07 PM Danie Albright MD IMG DX ORDERABLES * US Lower Extremity Duplex Right (09/09/2023 12:49 PM EDT) PT CLASS O RAD ADMITDTTM [id number] RAD PT RAD INFO [id number]^Young^ Leann RAD EXAM DESC ULOEXR^US Lower Ext Venous Duplex Right^RIS [facility] WORKSTATION ID [id number] [facility] Anatomical Region Laterality Modality Other 09/09/2023 12:2 1 PM EDT Impressions 09/09/2023 2:07 PM EDT No right lower extremity DVT. Thank you for letting us participate in the care of this patient. ??If you are a health care provider and have any questions regarding this report, please contact the number below. ??For patients who have questions please contact the health health careers instructor that requested your imaging first. ? Electronically signed by: Ricardo Zapien MD, [facility] ([phone]), at 09/09/2023 2:07 PM Narrative 09/09/2023 2:07 PM EDT EXAMINATION: US Lower Ext Venous Duplex Right CLINICAL HISTORY: Pain in right leg TECHNIQUE: Lower extremity venous color and spectral doppler ultrasound investigating the common femoral vein, greater saphenous vein/femoral vein junction, deep femoral vein, superficial femoral vein, popliteal vein, PTV and peroneal veins of the calf, and the contralateral common femoral vein was peformed on the right. COMPARISON: February 07, 2018 FINDINGS: Linear hyperechoic foci in the popliteal vein, likely representing fibrinous strand remnants of the remote DVT. There is normal compression, augmentation, color flow, and phasicity in all imaged vessels, with no thrombus. Procedure Note Ricardo Zapien MD - 09/09/2023 EXAMINATION: US Lower Ext Venous Duplex Right CLINICAL HISTORY: Pain in right leg TECHNIQUE: Lower extremity venous color and spectral doppler ultrasound investigating the common femoral vein, greater saphenous vein/femoralvein junction, deep femoral vein, superficial femoral vein, popliteal vein, PTVand peroneal veins of the calf, and the contralateral common femoral veinwas peformed on the right. COMPARISON: February 07, 2018 FINDINGS: Linear hyperechoic foci in the popliteal vein, likely representingfibrinous strand remnants of the remote DVT. There is normal compression,augmentation, color flow, and phasicity in all imaged vessels, with no thrombus. IMPRESSION No right lower extremity DVT. Thank you for letting us participate in the care of this patient. If youare a health care provider and have any questions regarding this report,please contact the number below. For patients who have questions please contactthe health health careers instructor that requested your imaging first. Electronically signed by: Ricardo Zapien MD, [facility]([phone]), at 09/09/2023 2:07 PM Leann Palencia TELETRAY OPERATOR PACS IMAGES * XR Hip 2-3 Views Right (09/09/2023 12:28 PM EDT) PT CLASS O RAD ADMITDTTM [id number] [facility] PT RAD INFO [id number]^Talha^ Leann RAD EXAM DESC XRHIPTVR^XR Hip 2-3 Views Right^RIS [facility] WORKSTATION ID [id number] RAD Anatomical Region Laterality Modality Hip Right Radiographic Christi ging 09/09/2023 12:2 8 PM EDT Impressions 09/09/2023 1:10 PM EDT Unremarkable radiograph of the right hip. Thank you for letting us participate in the care of this patient. ??If you are a health care provider and have any questions regarding this report, please contact the number below. ??For patients who have questions please contact the health health careers instructor that requested your imaging first. ? Electronically signed by: Ricardo Zapien MD, [facility] ([phone]), at 09/09/2023 1:10 PM Narrative 09/09/2023 1:10 PM EDT EXAMINATION: XR Hip 2-3 Views Right CLINICAL HISTORY: Pain in right hip TECHNIQUE: 3 views the right hip COMPARISON: None FINDINGS: Maintained joint spaces. Adequate acetabular coverage. No evidence of fracture or dislocation. Calcific density in the pelvis, likely a uterine fibroid. Procedure Note Ricardo Zapien MD - 09/09/2023 EXAMINATION: XR Hip 2-3 Views Right CLINICAL HISTORY: Pain in right hip TECHNIQUE: 3 views the right hip COMPARISON: None FINDINGS: Maintained joint spaces. Adequate acetabular coverage. No evidence offracture or dislocation. Calcific density in the pelvis, likely a uterinefibroid. IMPRESSION Unremarkable radiograph of the right hip. Thank you for letting us participate in the care of this patient. If youare a health care provider and have any questions regarding this report,please contact the number below. For patients who have questions please contactthe health health careers instructor that requested your imaging first. Electronically signed by: Ricardo Zapien MD, [facility]([phone]), at 09/09/2023 1:10 PM Leann Palencia TELETRAY OPERATOR IMG DX ORDERABLES * Mammo Screening Cad Bilateral (07/03/2022 1:18 PM EDT) PT CLASS O RAD ADMITDTTM RAD PT RAD INFO [id number]^YO CHENG^LEANN RAD EXAM DESC MADDSC^SCREEN MAMMO BL INCLUDES CAD^RIS RAD Anatomical Region Laterality Modality Breast Bilateral Mammography Impressions 07/03/2022 2:17 PM EDT BI-RADS ??category 1: negative- No mammographic evidence of malignancy. RECOMMENDATION: * ??Regular screening mammograms starting between age 40 and 50 reduces the risk of from breast cancer. * ??All screening tests have both risks and benefits. These risks and benefits should be assessed for each individual patient through discussion with their provider to determine their preferred breast cancer screening schedule. * ??Women should report any breast changes to a health care provider right away. * ??Some women, because of their family history, a genetic tendency, or other factors, should be screened with annual breast MRI as well as with mammograms. (The number of women who fall into this category is very small). Patients and health care providers should discuss the history of each patient to decide if earlier screening and/or breast MRI are appropriate. * ??Screening should continue as long as a woman is in good health and is expected to live 10 years or longer. * ??Screening mammography may not detect 10-15% of breast cancers. Thank you for letting us participate in the care of this patient. ??If you are a health care provider and have any questions regarding this report, please contact the number below. ??For patients who have questions please contact the health health careers instructor that requested your imaging first. ? Electronically signed by: Ricardo Zapien MD, [facility] ([phone]), at 07/03/2022 2:17 PM Narrative 07/03/2022 2:17 PM EDT EXAMINATION: BREAST SCREEN TOMOSYNTHESIS BI, SCREEN MAMMO BL INCLUDES CAD CLINICAL HISTORY: mammo screening for malignant neoplasm of breast Family history of breast cancer: None Reproductive history: Parous No personal history of breast cancer. COMPARISON: Previous mammograms were reviewed. TECHNIQUE: ??Bilateral MLO and CC digital mammograms were obtained and reviewed with CAD. ?? 2-D and 3-D tomosynthesis images were obtained. FINDINGS: There are no suspicious microcalcifications, masses, or areas of distortion. No changes compared to prior studies. Breast density: The breasts are almost entirely fatty. Procedure Note Ricardo Zapien MD - 07/03/2022 EXAMINATION: BREAST SCREEN TOMOSYNTHESIS BI, SCREEN MAMMO BL INCLUDESCAD CLINICAL HISTORY: mammo screening for malignant neoplasm of breast Family history of breast cancer: None Reproductive history: Parous No personal history of breast cancer. COMPARISON: Previous mammograms were reviewed. TECHNIQUE: Bilateral MLO and CC digital mammograms were obtained andreviewed with CAD. 2-D and 3-D tomosynthesis images were obtained. FINDINGS: There are no suspicious microcalcifications, masses, or areasof distortion. No changes compared to prior studies. Breast density: The breasts are almost entirely fatty. IMPRESSION BI-RADS category 1: negative- No mammographic evidence of malignancy. RECOMMENDATION: * Regular screening mammograms starting between age 40 and 50 reduces therisk of from breast cancer. * All screening tests have both risks and benefits. These risks andbenefits should be assessed for each individual patient through discussion withtheir provider to determine their preferred breast cancer screening schedule. * Women should report any breast changes to a health care provider rightaway. * Some women, because of their family history, a genetic tendency, orother factors, should be screened with annual breast MRI as well as withmammograms. (The number of women who fall into this category is very small). Patientsand health care providers should discuss the history of each patient to decideif earlier screening and/or breast MRI are appropriate. * Screening should continue as long as a woman is in good health and is expected to live 10 years or longer. * Screening mammography may not detect 10-15% of breast cancers. Thank you for letting us participate in the care of this patient. If youare a health care provider and have any questions regarding this report,please contact the number below. For patients who have questions please contactthe health health careers instructor that requested your imaging first. Electronically signed by: Ricardo Zapien MD, [facility]([phone]), at 07/03/2022 2:17 PM Leann Palencia APRN IMG MAMMO ORDERABLES * COMPREHENSIVE METABOLIC PANEL (NON-FASTING) (06/13/2010 9:39 AM EDT) Glucose 101 60 - 199 mg/dL CERNER MILLENNIUM Comment:Diabetes: >=200 mg/d L plus symptoms Blood Urea Nitrogen 13 8 - 18 mg/dL CERNER MILLENNIUM Creatinine 0.79 0.70 - 1.20 mg/dL CERNER MILLENNIUM Sodium 141 135 - 145 mmol/L CERNER MILLENNIUM Potassium 3.9 3.5 - 5.0 mmol/L CERNER MILLENNIUM Comment: Please note: ??Patients with WBC >100,000 may have falsely elevated Potassium levels. ??For accurate Potassium quantification in these patients send serum separator tube (gold top) for subsequent determinations. ??Contact the Clinical Chemistry Laboratory if there are any questions. Chloride 105 98 - 107 mmol/L CERNER MILLENNIUM Carbon Dioxide 24 22 - 31 mmol/L CERNER MILLENNIUM Anion Gap 12 5 - 15 mmol/L CERNER MILLENNIUM Calcium 9.4 8.5 - 10.5 mg/dL CERNER MILLENNIUM Protein, Total 7.6 6.4 - 8.3 gm/dL CERNER MILLENNIUM Albumin 4.2 3.2 - 5.2 gm/dL CERNER MILLENNIUM Aspartate Aminotransferase 19 0 - 30 unit/L CERNER MILLENNIUM Alanine Aminotransferase 11 0 - 30 unit/L CERNER MILLENNIUM Alkaline Phosphatase 69 40 - 104 unit/L CERNER MILLENNIUM Bilirubin, Total 0.3 0.2 - 1.3 mg/dL CERNER MILLENNIUM Bilirubin, Direct 0.1 0.0 - 0.3 mg/dL CERNER MILLENNIUM Est Glomerular Filtration Rate >60 >=60 CERNER MILLENNIUM Comment: The National Kidney Disease Education Program (NKDEP) has recommended all laboratories report estimated GFR (eGFR) along with plasma creatinine measurements to assist you with recognition of early kidney disease. Caveats: ??Plasma creatinine should be at steady-state (unchanged within the past week). ??Patient age > = 18 years, and for Americans multiply eGFR by 1.2. At present, NKDEP does NOT recommend using the MDRD equation for drug dosing purposes and pharmacists should continue to use their current dosing methods. In addition, numerical eGFR values greater than 60 ml/min/1.73 square meters should be treated as > 60, and not an exact number due to greater inaccuracies at these higher values. Per NKDEP, they classify normal renal function as any GFR >60ml/min/1.73 square meters; chronic kidney disease when GFR <60, and renal failure when GFR <15. ??This calculation may not be valid for patients with atypical muscle mass (very lean or obese), acute renal failure, and in patients with diabetic kidney disease. References: http://nkdep.nih.gov/resources/NKDEP_Suggestn4Labs_0606_508.pdf http://www.kidney.org/professionals/kls/pdf/faq_gfr.pdf Blood specimen (specimen) 06/13/2010 9:39 AM EDT 06/13/2010 9:43 AM EDT Sanket Norman Jr., MD CHEMISTRY OR DERABLES CERNER MILLENNIUM * OCCULT BLOOD, STOOL (04/10/2010 4:44 PM EST) Spec Date # 1 03/31/2010 CERNER MILLENNIUM Occ Bld Stl #1 Negative CERNE R MILLENNIUM Spec Date # 2 04/02/2010 CERNER MILLENNIUM Occ Bld Stl #2 Negative CERNE R MILLENNIUM Spec Date # 3 04/04/2010 CERNER MILLENNIUM Occ Bld Stl #3 Negative CERNE R MILLENNIUM Stool specimen (specimen) 04/10/2010 4:44 PM EST 04/10/2010 4:44 PM EST Sanket Norman Jr., MD BODY FLUIDS AND STOOLS ORDERABLES CERNER MILLENNIUM from Last 3 Months or Most Recently Relevant to Health Maintenance Care Teams Brick Machine Operator Relationship Specialty Start Date End Date Teresa Trujillo APRN [address] [place] [address] PCP - General Family Medicine 02/14/18
--- OUTSIDE RECORDS SUMMARY | 2023-10-08 15:17 | XMS_ITS | Encounter Summary ---
Author Organization [facility] [place] [address] Care Team Providers Care Biometrics Instructor Name Role Phone Teresa Trujillo ELISSA Primary Care Provider +1 [phone] Encounter Details Date Type Department Care Team (Late st Contact Info) Description 11/16/2021 Interpretation Only [address] [phone] Momo Griffiths MD [address] [place] [address] Social History Tobacco Use Types Packs/Day Years Used Date Smoking Tobacco: Never Smokeless Tobacco: Never Sex and Gender Information Value Date Recorded Sex Assigned at Not on file Gender Identity Not on file Sexual Orientation Not on file documented as of this encounter Plan of Treatment Not on file documented as of this encounter Procedures Procedure Name Priority Date/Time Associated Diagnosis Comments CT ANGIOGRAM OF CHEST (NON-CORONARY) W CONTRAST STAT 11/16/2021 3:53 PM EDT documented in this encounter Results * CT Angiogram Chest (Non-Coronary) w Contrast (11/16/2021 3:53 PM EDT) PT CLASS E RAD ADMITDTTM RAD PT RAD INFO [id number]^FINDL EY^MOMO CASANOVA RAD EXAM DESC CTTHAO^CT ANGIOGRAPHY PE CHEST^RIS RAD Anatomical Region Laterality Modality Chest Computed Tomogra phy Impressions 11/16/2021 4:45 PM EDT 1. ??No pulmonary artery emboli to fourth order branches. No central pulmonary artery emboli. 2. ??Suspect lingular and left upper lobe acute infectious or inflammatory process. 3. ??Moderate hiatal hernia and air-filled esophagus raises the possibility of gastroesophageal reflux. 4. ??No thoracic aortic dissection. Thank you for letting us participate in the care of this patient. ??If you are a health care provider and have any questions regarding this report, please contact the number below. ??For patients who have questions please contact the health health care facilities inspector that requested your imaging first. ? Electronically signed by: Clary Smart MD, [facility] ([phone]), at 11/16/2021 4:45 PM Narrative 11/16/2021 4:45 PM EDT EXAMINATION: CT ANGIOGRAPHY PE CHEST, CT ANGIOGRAPHY PE CHEST CLINICAL HISTORY: dyspnea, hx of PE TECHNIQUE: Helical CT angiogram of the chest was performed after intravenous contrast administration of 160cc of Omnipaque 350. ??Thin-section reconstructions as well as coronal and sagittal MIP reformatted images were generated to aid in evaluation. Exam performed twice due to incomplete opacification at the first injection. COMPARISON: February 18, 2018 FINDINGS: Artifact created by patient having arm at their side. Pulmonary arteries: No pulmonary artery emboli to fourth order branches. No central pulmonary artery emboli. Other cardiovascular structures: Normal heart size. No pericardial effusion. Smooth-walled thoracic aorta without dissection. Lungs and airways: Dependent atelectasis. Groundglass opacity in the left upper lobe and lingula. Pleura and pericardium: No pleural effusion. Mediastinum and hilar structures: No lymphadenopathy. Limited views of the upper abdomen: Stable moderate hiatal hernia. Air-filled esophagus. Skeletal structures: No lytic or sclerotic lesions. Procedure Note Clary Smart MD - 11/16/2021 EXAMINATION: CT ANGIOGRAPHY PE CHEST, CT ANGIOGRAPHY PE CHEST CLINICAL HISTORY: dyspnea, hx of PE TECHNIQUE: Helical CT angiogram of the chest was performed afterintravenous contrast administration of 160cc of Omnipaque 350. Thin-sectionreconstructions as well as coronal and sagittal MIP reformatted images were generated toaid in evaluation. Exam performed twice due to incomplete opacification at thefirst injection. COMPARISON: February 18, 2018 FINDINGS: Artifact created by patient having arm at their side. Pulmonary arteries: No pulmonary artery emboli to fourth order branches.No central pulmonary artery emboli. Other cardiovascular structures: Normal heart size. No pericardialeffusion. Smooth-walled thoracic aorta without dissection. Lungs and airways: Dependent atelectasis. Groundglass opacity in the leftupper lobe and lingula. Pleura and pericardium: No pleural effusion. Mediastinum and hilar structures: No lymphadenopathy. Limited views of the upper abdomen: Stable moderate hiatal hernia.Air-filled esophagus. Skeletal structures: No lytic or sclerotic lesions. IMPRESSION 1. No pulmonary artery emboli to fourth order branches. No centralpulmonary artery emboli. 2. Suspect lingular and left upper lobe acute infectious orinflammatory process. 3. Moderate hiatal hernia and air-filled esophagus raises the possibilityof gastroesophageal reflux. 4. No thoracic aortic dissection. Thank you for letting us participate in the care of this patient. If youare a health care provider and have any questions regarding this report,please contact the number below. For patients who have questions please contactthe health health care facilities inspector that requested your imaging first. Electronically signed by: Clary Smart MD, [facility]([phone]), at 11/16/2021 4:45 PM Momo Griffiths MD IMG CT ORDERABL ES documented in this encounter Visit Diagnoses Not on filedocumented in this encounter Care Teams Biometrics Instructor Relationship Specialty Start Date End Date Teresa Trujillo APRN [address] [place] [address] PCP - General Family Medicine 02/14/18 documented as of this encounter
--- OUTSIDE RECORDS SUMMARY | 2023-10-08 15:17 | XMS_ITS | Encounter Summary ---
Author Organization [facility] [place] [address] Care Team Providers Care Truck Caterer Name Role Phone RonnieTeresa APRN Primary Care Provider [phone] [phone] Encounter Details Date Type Department Care Team (Latest Contact Info) Description 11/16/2021 9:41 PM EDT - 11/16/2021 11:59 PM EDT Hospital [place] [phone] Discharge Disposition: Home Social History Tobacco Use Types Packs/Day Years Used Date Smoking Tobacco: Never Smokeless Tobacco: Never Sex and Gender Information Value Date Recorded Sex Assigned at Not on file Gender Identity Not on file Sexual Orientation Not on file documented as of this encounter Medications at Time of Discharge Medication Sig Dispensed Refills Start Date End Date apixaban (ELIQUIS) 5 mg Tablet Take 5 mg by mouth 2 times daily. iron polysaccharides (FERREX 150) 150 mg capsule Take 150 mg by mouth 2 times daily. multivitamin (THERAGRAN) tablet 04/18/2010 documented as of this encounter Plan of Treatment Not on file documented as of this encounter Procedures Procedure Name Priority Date/Time Associated Diagnosis Comments PATHOLOGY SLIDE REVIEW Routine 11/16/2021 10:35 PM EDT PATHOLOGY SLIDE REVIEW Routine 11/16/2021 2:20 PM EDT documented in this encounter Results * Smear Review Report (11/16/2021 10:35 PM EDT) Smear Review Report [id number] ? Location: [facility] The signing pathologist has (i) examined the relevant preparation(s) for the specimen(s) and (ii) rendered or confirmed the diagnosis(es). . ? Smear Review DIAGNOSIS PERIPHERAL BLOOD, SMEAR: 1. Microcytic, hypochromic anemia 2. Marked thrombocytosis Electronically signed by: ?Kemal Dubois MD Verified: ??11/17/2021 14:14 ??Hematopathologis t Performed at: ??-[facility]. of [place]ology, [place], [place] DISCUSSION The morphologic findings are nonspecific. Factors which could contribute to a microcytic anemia may include blood loss, nutritional deficits, chronic inflammation, infection, EtOH/toxin exposures, kidney disease, or medication effect. Factors which may contribute to a reactive thrombocytosis could include iron deficiency, blood loss, infections, non-infectious inflammation, or hyposplenism. If the finding is persistent and otherwise unexplained, genetic evaluation for ??JAK2, CALR, and/or ??MPL gene mutations may be warranted to exclude a myeloproliferative neoplasm. ADDITIONAL STUDIES WBC 12.4K/uL, RBC 3.5M/uL, HGB 4.8g/dL, MCV 59.8fL, RDW 23.2%, PLT 535K/uL Red cells: Hypochromic/microc ytic, polychromasia present, poikilocytes: elliptocytes, hypochromic microcytes, teardrop cells, few target cells. Leukocytes: ANC 10.23 K/uL, leukocytes morphologically unremarkable. Platelets: Few giant forms seen, mostly normal morphology. CLINICAL INFORMATION A 61 year old woman with thrombocytosis and anemia. No clinical context is provided. [facility] 11/16/2021 10:3 5 PM EDT Momo Griffiths MD HEMATOLOGY [facility] [place] [address] * Peripheral Smear Review (11/16/2021 2:20 PM EDT) Peripheral Smear Review See Comment [facility] Comment: When completed by the Pathologist, report [id number] will display under Hematopathology Reports. Blood Venous Draw / Unknown 11/16/2021 2:20 PM EDT 11/16/2021 9:27 PM EDT Narrative Resulting Agency Comment Spec In Lab Momo Griffiths MD H[facility]ATOLOGY [facility] [place] [address] documented in this encounter Visit Diagnoses Not on filedocumented in this encounter Care Teams Truck Caterer Relationship Specialty Start Date End Date Teresa Trujillo APRN [address] [place] [address] PCP - General Family Medicine 02/14/18 documented as of this encounter
--- OUTSIDE RECORDS SUMMARY | 2023-10-08 15:17 | XMS_ITS | Encounter Summary ---
Author Organization [facility] [place] [address] Care Team Providers Care Miller Helper Name Role Phone Teresa Trujillo ELISSA Primary Care Provider [phone] [phone] Encounter Details Date Type Department Care Team (Late st Contact Info) Description 11/16/2021 Interpretation Only [address] [phone] Momo Griffiths MD [address] [place] [address] Social History Tobacco Use Types Packs/Day Years [...] OF CHEST (NON-CORONARY) W CONTRAST STAT 11/16/2021 4:27 PM EDT documented in this encounter Results * CT Angiogram Chest (Non-Coronary) w Contrast (11/16/2021 4:27 PM EDT) PT CLASS E RAD ADMITDTTM RAD PT RAD INFO [id number]^FINDL EY^MOMO CASANOVA RAD EXAM DESC CTTHAO^CT ANGIOGRAPHY [...] who have questions please contact the health daycare manager that requested your imaging first. ? Narrative 11/16/2021 4:45 PM EDT EXAMINATION: CT [...] patients who have questions please contactthe health daycare manager that requested your imaging first. Momo Griffiths MD IMG CT ORDERABL ES documented in this encounter Visit Diagnoses Not on filedocumented in this encounter Care Teams Miller Helper Relationship Specialty Start Date End Date Teresa Trujillo APRN [address] [place] [address] PCP - General Family Medicine 02/14/18 documented as of this encounter
--- OUTSIDE RECORDS SUMMARY | 2023-10-08 15:17 | XMS_ITS | Encounter Summary ---
Author Organization [facility] Address [facility] [place] [address] Care Team Providers Care Home Energy Auditor Name Role Phone Teresa Trujillo APRN Primary Care Provider [phone] [phone] Encounter Details Date Type Department Care Team (Latest Contact Info) Description 09/23/2023 9:47 AM EDT - 09/23/2023 11:59 PM EDT Hospital [place] [phone] Discharge Disposition: Home Social History Tobacco Use [...] as of this encounter Plan of Treatment Pending Results Name Type Priority Associated Diagnoses Date /Time Type and screen ([facility]/CG/VALERIO) Blood Bank Routine 09/23/2023 8:30 PM EDT Type and Screen Validity Blood Bank Routine 09/23/2023 8:30 PM EDT Scheduled Orders Name Type Priority Associated Diagnoses Orde r Schedule Type and screen ([facility]/CGP/VALERIO) Blood Bank Routine One Time for 1 Occurrences starting 09/23/2023 until 09/23/2023 Type and Screen Validity Blood Bank Routine One Time for 1 Occurrences starting 09/23/2023 until 09/23/2023 documented as of this encounter Procedures Procedure Name Priority Date/Time Associated Diagnosis Comments ANTIBODY SCREEN AGUSTINA Routine 09/23/2023 8:30 PM EDT ANTIBODY IDENTIFICATION Routine 09/23/19 8:30 PM EDT TYPE AND SCREEN ([facility]/CGP/VALERIO) Routine 09/23/2023 8:30 PM EDT DIRECT ANTIGLOBULIN TEST Routine 09/23/2023 8:30 PM EDT documented in this encounter Results * Antibody identification (09/23/2023 8:30 PM EDT) Ab Identified Anti-Low-I ncidence [facility] 09/23/2023 8:30 PM EDT 09/23/2023 8:30 PM EDT Lab BLOOD BANK LAB ORDER ARI [facility] [place] [address] * Antibody Screen AGUSTINA (09/23/2023 8:30 PM EDT) AB SCREEN INTERP Negative [facility] 09/23/2023 8:30 PM EDT 09/23/2023 8:30 PM EDT Lab BLOOD BANK LAB ORDER ARI [facility] [place] [address] * Direct antiglobulin test (09/23/2023 8:30 PM EDT) CECY Negative [facility] 09/23/2023 8:30 PM EDT 09/23/2023 8:[address] Lab BLOOD BANK LAB ORDER ARI [facility] [place] [address] * Type and screen ([facility]/VALERIO) (09/23/2023 8:30 PM EDT) ABORH Type O NEGATIVE [facility] Patient BB History Unneccessary [facility] Expires at [id number] on: 09-23-2023 [facility] Ab Screen Interp Negative [facility] 09/23/2023 8:30 PM EDT 09/23/2023 8:30 PM EDT Narrative [facility] - 09/23/2023 8:30 PM EDT This Type and Screen result is only valid at the [facility] Hospital Dr Lab BLOOD BANK LAB ORDER ARI Performing Organization Address City[facility]/ZIP Co de Phone Number [facility] [place] [address] documented in this encounter Visit Diagnoses Not on filedocumented in this encounter Care Teams Home Energy Auditor Relationship Specialty Start Date End Date Teresa Trujillo APRN [address] [place] [address] PCP - General Family Medicine 02/14/18 documented as of this encounter
--- OUTSIDE RECORDS SUMMARY | 2023-10-08 15:17 | XMS_ITS | Encounter Summary ---
Author Organization [facility] [place] [address] Care Team Providers Care Laborer Carpentry Dock Name Role Phone Teresa Trujillo APRN Primary Care Provider +1 [phone] Encounter Details Date Type Department Care Team (Late st Contact Info) Description 11/16/2021 Interpretation Only [address] [phone] Momo Griffiths MD [address] [place] [address] Social History Tobacco Use Types Packs/Day Years [...] on filedocumented in this encounter Care Teams Laborer Carpentry Dock Relationship Specialty Start Date End Date Teresa Trujillo APRN [address] [place] [address] PCP - General Family Medicine 02/14/18 documented as of this encounter
--- OUTSIDE RECORDS SUMMARY | 2023-10-08 15:17 | XMS_ITS | Encounter Summary ---
Author Organization [facility] [place] [address] Care Team Providers Care Law Instructor Name Role Phone Teresa Trujillo ELISSA Primary Care Provider +1 -[phone] Encounter Details Date Type Department Care Team (Late st Contact Info) Description 09/23/2023 Interpretation Only [address] [phone] Danie Albright MD [address] [place] [address] [place] [address] Social History Tobacco Use Types Packs/Day Years Used Date Smoking Tobacco: Never Smokeless Tobacco: Never Sex and Gender Information Value Date Recorded Sex Assigned at Not on file Gender Identity Not on file Sexual Orientation Not on file documented as of this encounter Plan of Treatment Not on file documented as of this encounter Procedures Procedure Name Priority Date/Time Associated Diagnosis Comments XR CHEST PA AND LATERAL STAT 09/23/2023 11:33 AM EDT documented in this encounter Results * XR Chest PA & Lateral (Generic) (09/23/2023 11:33 AM EDT) PT CLASS E RAD ADMITDTTM [id number] RAD PT RAD INFO [id number]^Broadw ater^Danie^Polo k RAD EXAM DESC XCXR2^XR Chest 2 Views^RIS RAD WORKSTATION ID [id number] RAD Anatomical Region Laterality Modality Chest N/A Radiographic [...] who have questions please contact the health medical care evaluation specialist that requested your imaging first. ? Electronically signed by: Elma Corral MD, [facility] ([phone]), at 09/23/2023 12:07 PM Narrative 09/23/2023 12:07 [...] patients who have questions please contactthe health medical care evaluation specialist that requested your imaging first. Danie Albright MD IMG DX ORDERABLES documented in this encounter Visit Diagnoses Not on filedocumented in this encounter Care Teams Law Instructor Relationship Specialty Start Date End Date Teresa Trujillo APRN [address] [place] [address] PCP - General Family Medicine 02/14/18 documented as of this encounter
--- OUTSIDE RECORDS SUMMARY | 2023-10-08 15:17 | XMS_ITS | Encounter Summary ---
Author Organization [facility] [place] [address] Care Team Providers Care Causticiser Name Role Phone Teresa Trujillo APRN Primary Care Provider +1 [phone] Encounter Details Date Type Department Care Team (Late st Contact Info) Description 07/03/2022 Interpretation Only [address] [phone] Leann Palencia APRN [address] [place] [address] Social History Tobacco Use Types Packs/Day Years Used Date Smoking Tobacco: Never Smokeless Tobacco: Never Sex and Gender Information Value Date Recorded Sex Assigned at Not on file Gender Identity Not on file Sexual Orientation Not on file documented as of this encounter Plan of Treatment Not on file documented as of this encounter Procedures Procedure Name Priority Date/Time Associated Diagnosis Comments MAMMO SCREENING CAD AND EDUARDO BILATERAL Routine 07/03/2022 1:18 PM EDT documented in this encounter Results * Mammo Screening Cad and Eduardo Bilateral (07/03/2022 1:18 PM EDT) PT CLASS O DH RAD ADMITDTTM DH RAD PT RAD MD INFO [id number]^YOUNG^ LEANN DH RAD EXAM DESC MADDSCTO^BREAST SCREEN TOMOSYNTHESIS BI^RIS RAD Anatomical Region Laterality Modality Breast Bilateral [...] who have questions please contact the health rn progressive care that requested your imaging first. ? Narrative 07/03/2022 2:17 PM EDT EXAMINATION: BREAST [...] patients who have questions please contactthe health rn progressive care that requested your imaging first. Leann Palencia APRN IMG MAMMO ORDERABLES documented in this encounter Visit Diagnoses Not on filedocumented in this encounter Care Teams Causticiser Relationship Specialty Start Date End Date Teresa Trujillo APRN [address] [place] [address] PCP - General Family Medicine 02/14/18 documented as of this encounter
--- OUTSIDE RECORDS SUMMARY | 2023-10-08 15:17 | XMS_ITS | Encounter Summary ---
Author Organization Formerly [facility], [facility] Address [facility] [place] [address] Care Team Providers Care Hydraulic Miner Blasting Name Role Phone Teresa Trujillo ELISSA Primary Care Provider [phone] [phone] Encounter Details Date Type Department Care Team (Late st Contact Info) Description 09/24/2023 [place] [id number] Johnnie Chau MD [facility] [place] [address] Social History Tobacco Use Types Packs/Day Years Used Date Smoking Tobacco: Never Smokeless Tobacco: Never Sex and Gender Information Value Date Recorded Sex Assigned at Not on file Gender Identity Not on file Sexual Orientation Not on file documented as of this encounter Progress Notes * Johnnie Chau MD - 09/24/2023 2:10 PM EDTSummary: Possible non-severe hemolytic transfusion reaction due to low frequency antibody not detected on routine testing. Transfusion Medicine Service Transfusion Reaction Report Transfusion Medicine Attending Physician: Reyes Easton MD Transfusion Medicine Fellow/Resident: Johnnie Chau MD Date: 09/24/2023 Patient Name: Lauren Paula Date of : 1960 Chief Complaint: The patient is a 63 y.o. year old female admitted to [facility] for GI bleedon 09/23/23. Relevant Problems: GI bleed with transfusion reaction Patient ABO Type: O NEGATIVE Indication for Transfusion: The patient was transfused RBC at 1424 on 09/23/23 for anemia (hemoglobin/hematocrit 5.1/19.9). Reaction Description: During a transfusion of RBCs, patient began to experience nausea, headache, pallor, and chills along with tachypnea and hypotension about 2 hours after the start of the transfusion. She did not experience any flank pain, fever, hematuria, pain at IV site, or epistaxis. Implicated Component Information: Unit Number(s): [id number] Unit ABO Type(s): O- Volume Transfused: 238 mL Premedication: Tylenol Blood Warmer Used: No Other Products Transfused in Previous 24 Hours: No Relevant History: History of Previous Transfusion Reactions: No History: Yes Is this patient a bone marrow transplant or CAR-T recipient? No Relevant Labs: Bilirubin (total): 0.2 mg/dL Hemoglobin (pre-transfusion): 5.1 g/dL Hematocrit (pre-transfusion): 19.9% Hemoglobin (post-transfusion): 5.5 g/dL Hematocrit (post-transfusion): 20.8% Vital signs: TEMP (C) BP HR RR Pre- TXN 36.8 110/55 84 20 During REACTION 36.7 110/54 76 20 Post- TXN 36.7 80/50 80 33 Investigation: Clerical check confirms that the patient received the correct product:yes Visual inspection for hemolysis: negative Direct Antiglobulin Test (CECY): negative Product Cultured: No Product STAT Gram Stain: not done Patient Cultured: No Reaction treatment and response: Transfusion was stopped and patient was given ondansetron, diphenhydramine, and famotidine. Reaction Assessment: https://www.cdc.gov/nhsn/pdfs/biovigilance/ks-kz-wqnybezo-current.pdf CDC/NHSN Biovigilance Reaction Classification: Acute hemolytic transfusion reaction (AHTR) Case Definition: Possible Severity: Grade 1 (Non-Severe) Imputability: Probable Laboratory investigation at [facility] confirmed that this patient received the correct product, visual inspection for hemolysis was negative, and post- transfusion CECY was negative. Further immunohematologic workup revealed that the transfused unit of RBCs was incompatible with the patient due to an antibody against a low-frequency antigen that was not detected by routine antibody testing. The patient's serologic lab values do not support a definite AHTR since they were either unremarkable (bilirubin) or not obtained (fibrinogen, haptoglobin, LDH), and the post-transfusion urinalysis was negative. The degree of hypotension (drop in systolic BP of greater than or equal to 30 mmHg and s ystolic BP less than or equal to 80 mmHg) would satisfy the requirement of a hypotensive transfusion reaction, while the patient's tachypnea would satisfy the requirement of a transfusion-associated dyspnea reaction. However, in the setting of clinical signs/symptoms suspicious for hemolysis (chills, hypotension), a hemoglobin that did not increase appropriately after receiving 238 mL of the RBC unit, and an incompatible transfused unit (due to an antibody against a low-frequency antigen), we favor this as a possible acute hemolytic transfusion reaction, non-severe, probable imputability. Recommendations: The Transfusion Medicine Service recommends transfusing only crossmatch compatible units for this patient. We also advise against using the standard electronic cross match procedure since the patient's antibody is against a low- frequency antigen and was not detected prior to this transfusion reaction. The Transfusion Medicine Service and Transfusion Committee advise against the routine premedicationof patients with no prior history of transfusion reactions or of those with a history of only febrile or mild allergic reactions as this practice has not been shown to reduce the rate of these reactions. The patient is cleared for additional blood product transfusions if clinically indicated. Please report any subsequent reactions to the Transfusion Medicine Service. Johnnie Chau MD 09/24/2023 ATTENDING MD ATTESTATION: I reviewed the clinical data and laboratory evaluation which I discussed with Dr. Chau. It is rather unusual situation as explained above. The patient's antibody was only detectable under specific testing circumstances, rather than routine testing. The unit the patient received was incompatible in in vitro testing when specifically tested after transfusion. The symptoms developed by the patient in this context might be ascribed to this incompatibility although they could be also multifactorial such as ongoing bleeding. As no specific tests for hemolysis have been performed we could only rely on a low increase in hemoglobin level post transfusion (possibly affected by bleeding), serologic testing, and patient's symptoms. This is likely insufficient to support probable case definition, so we opted for possible. I agree with the interpretation as presented by Dr. Chau. This patient may receive additional blood components if clinically indicated, however, they have to be crossmatch compatible in antiglobulin phase likely due to a low incidence antibody not further identified.. REYES EASTON MD 09/24/2023 documented in this encounter Plan of Treatment Not on file documented as of this encounter Visit Diagnoses Not on filedocumented in this encounter Care Teams Hydraulic Miner Blasting Relationship Specialty Start Date End Date Teresa Trujillo APRN [address] [place] [address] PCP - General Family Medicine 02/14/18 documented as of this encounter
--- OUTSIDE RECORDS SUMMARY | 2023-10-08 15:17 | XMS_ITS | Encounter Summary ---
Author Organization [facility] [place] [address] Care Team Providers Care Manager User Experience Name Role Phone Teresa Trujillo APRN Primary Care Provider [phone] [phone] Encounter Details Date Type Department Care Team (Late st Contact Info) Description 09/09/2023 Interpretation Only [address] [address] Aysha Palencia APRN [address] [place], [place] [address] Social History Tobacco Use Types Packs/Day Years Used Date Smoking Tobacco: Never Smokeless Tobacco: Never Sex and Gender Information Value Date Recorded Sex Assigned at Not on file Gender Identity Not on file Sexual Orientation Not on file documented as of this encounter Plan of Treatment Not on file documented as of this encounter Procedures Procedure Name Priority Date/Time Associated Diagnosis Comments XR HIP 2-3 VIEWS RIGHT Routine 09/09/2023 12:28 PM EDT documented in this encounter Results * XR Hip 2-3 Views Right (09/09/2023 12:28 PM EDT) PT CLASS O DH RAD ADMITDTTM [id number] RAD PT RAD MD INFO [id number]^Young^ Aysha RAD EXAM DESC [id number]^XR Hip 2-3 Views Right^RIS RAD WORKSTATION ID [id number] RAD Anatomical Region Laterality [...] who have questions please contact the health child care assistant that requested your imaging first. ? Electronically signed by: Ricardo Zapien MD, [facility] ([phone]), at 09/09/2023 1:10 PM Narrative 09/09/2023 1:10 [...] patients who have questions please contactthe health child care assistant that requested your imaging first. Aysha Palencia APRN IMG DX ORDERABLES documented in this encounter Visit Diagnoses Not on filedocumented in this encounter Care Teams Manager User Experience Relationship Specialty Start Date End Date Teresa Trujillo APRN [address] [place] [address] PCP - General Family Medicine 02/14/18 documented as of this encounter
--- OUTSIDE RECORDS SUMMARY | 2023-10-08 15:17 | XMS_ITS | Encounter Summary ---
Author Organization [facility] [place] [address] Care Team Providers Care Foreman Or Supervisor And Operator Name Role Phone Teresa Trujillo APRN Primary Care Provider [phone] [phone] Encounter Details Date Type Department Care Team (Late st Contact Info) Description 07/03/2022 Interpretation Only [address] [address] Leann Palencia APRN [address] [place], [place] [id number] Social History Tobacco Use Types Packs/Day Years [...] Date/Time Associated Diagnosis Comments MAMMO SCREENING CAD BILATERAL Routine 07/03/2022 1:18 PM EDT documented in this encounter Results * Mammo Screening Cad Bilateral (07/03/2022 1:18 PM EDT) PT CLASS O DH RAD ADMITDTTM DH RAD PT DH RAD INFO [id number]^YO CHENG^LEANN DH RAD EXAM DESC MADDSC^SCREEN MAMMO BL INCLUDES CAD^RIS DH RAD Anatomical Region Laterality Modality Breast Bilateral [...] who have questions please contact the health transitional care manager that requested your imaging first. ? Electronically signed by: Ricardo Zapien MD, [facility] ([phone]), at 07/03/2022 2:17 PM Narrative 07/03/2022 2:17 [...] patients who have questions please contactthe health transitional care manager that requested your imaging first. Electronically signed by: Ricardo Zapien MD, [facility]([phone]), at 07/03/2022 2:17 PM Leann Palencia APRN IMG MAMMO ORDERABLES documented in this encounter Visit Diagnoses Not on filedocumented in this encounter Care Teams Foreman Or Supervisor And Operator Relationship Specialty Start Date End Date Teresa Trujillo APRN [address] [place] [address] PCP - General Family Medicine 02/14/18 documented as of this encounter
--- OUTSIDE RECORDS SUMMARY | 2023-10-08 15:17 | XMS_ITS | Encounter Summary ---
Author Organization [facility] Address [facility] [place] [address] Care Team Providers Care Financial Reporting Analyst Name Role Phone Teresa Trujillo APRN Primary Care Provider [phone] Encounter Details Date Type Department Care Team (Late st Contact Info) Description 09/23/2023 Interpretation Only [address] [address] Tracy Ye APRN [facility] [address] [place], [place] [id number] Social History Tobacco Use Types Packs/Day Years [...] Priority Date/Time Associated Diagnosis Comments XR CHEST ONE VIEW STAT 09/23/2023 5:4 9 PM EDT documented in this encounter Results * XR Chest One View (09/23/2023 5:49 PM EDT) PT CLASS O DH RAD ADMITDTTM [id number] RAD PT RAD MD INFO [id number]^[place] n^Tracy^T RAD EXAM DESC XCXR1^XR Chest 1 View^RIS RAD WORKSTATION ID [id number] RAD Anatomical Region Laterality Modality Chest N/A [...] who have questions please contact the health long term care social worker that requested your imaging first. ? Electronically signed by: Tonia Carreon MD, [facility] ([phone]), at 09/23/2023 6:14 PM Narrative 09/23/2023 6:14 PM EDT EXAMINATION: XR [...] patients who have questions please contactthe health long term care social worker that requested your imaging first. Electronically signed by: Tonia Carreon MD, [facility]([phone]), at 09/23/2023 6:14 PM Tracy Ye APRN IMG DX ORDERABLES documented in this encounter Visit Diagnoses Not on filedocumented in this encounter Care Teams Financial Reporting Analyst Relationship Specialty Start Date End Date Teresa Trujillo APRN [address] [place] [address] PCP - General Family Medicine 02/14/18 documented as of this encounter
--- OUTSIDE RECORDS SUMMARY | 2023-10-08 15:17 | XMS_ITS | Encounter Summary ---
Author Organization [facility] [place] [address] Care Team Providers Care Ballroom Dancer Name Role Phone Ronnie, Teresa Callahan APRN Primary Care Provider [phone] Encounter Details Date Type Department Care Team (Latest Contact Info) Description 09/24/2023 12:44 PM EDT - 09/24/2023 11:59 PM EDT Hospital [place] [id number] Discharge Disposition: Home Social History Tobacco Use [...] Procedure Name Priority Date/Time Associated Diagnosis Comments AB COMMENT Routine 09/23/2023 8:30 PM EDT documented in this encounter Results * Ab Comment (09/23/2023 8:30 PM EDT) [facility] Blood Bank Antibody Comment See Comments [facility] BLOOD [facility]ANK LABORAT[facility] Comment:INTERPRETATION: A re [...] Dr Lab BLOOD BANK LAB ORDER ARI [facility] [place] [address] documented in this encounter Visit Diagnoses Not on filedocumented in this encounter Care Teams Ballroom Dancer Relationship Specialty Start Date End Date Teresa Trujillo APRN [address] [place] [address] PCP - General Family Medicine 02/14/18 documented as of this encounter
--- OUTSIDE RECORDS SUMMARY | 2023-10-08 15:17 | XMS_ITS | Encounter Summary ---
Author Organization [place] [address] Care Team Providers Care Education Counselor Name Role Phone Teresa Trujillo APRN Primary Care Provider [phone] [phone] Encounter Details Date Type Department Care Team (Late st Contact Info) Description 09/09/2023 Interpretation Only [address] [address] Aysha Palencia APRN [address] [place] [address] Social History Tobacco Use Types Packs/Day Years Used Date Smoking Tobacco: Never Smokeless Tobacco: Never Sex and Gender Information Value Date Recorded Sex Assigned at Not on file Gender Identity Not on file Sexual Orientation Not on file documented as of this encounter Plan of Treatment Not on file documented as of this encounter Procedures Procedure Name Priority Date/Time Associated Diagnosis Comments US LOWER EXTREMITY DUPLEX RIGHT Routine 09/09/2023 12:49 PM EDT documented in this encounter Results * US Lower Extremity Duplex Right (09/09/2023 12:49 PM EDT) PT CLASS O RAD ADMITDTTM [id number] RAD PT RAD MD INFO [id number]^Talha^ Aysha RAD EXAM DESC ULOEXR^US Lower Ext Venous Duplex Right^RIS RAD WORKSTATION ID [id number] RAD Anatomical Region Laterality Modality Other 09/09/2023 12:2 1 PM EDT Impressions 09/09/2023 2:07 PM EDT No right lower extremity DVT. Thank you for letting us participate in the care of this patient. ??If you are a health care provider and have any questions regarding this report, please contact the number below. ??For patients who have questions please contact the health dog daycare provider that requested your imaging first. ? Electronically signed by: Ricardo Zapien MD, [facility] ([phone]), at 09/09/2023 2:07 PM Narrative 09/09/2023 2:07 [...] patients who have questions please contactthe health dog daycare provider that requested your imaging first. Electronically signed by: Ricardo Zapien MD, [facility]([phone]), at 09/09/2023 2:07 PM Aysha Palencia APRN PACS IMAGES documented in this encounter Visit Diagnoses Not on filedocumented in this encounter Care Teams Education Counselor Relationship Specialty Start Date End Date Teresa Trujillo APRN [address] [place] [address] PCP - General Family Medicine 02/14/18 documented as of this encounter
--- OUTSIDE RECORDS SUMMARY | 2023-10-08 15:18 | XMS_ITS | Encounter Summary ---
Author Organization [facility] [place] [address] Care Team Providers Care Transportation Agent Name Role Phone RonnieTeresa APRN Primary Care Provider [phone] [phone] Encounter Details Date Type Department Care Team (Late st Contact Info) Description 05/05/2018 Telephone Hematology [place] [address] Isela Wise RN Social History Tobacco Use Types Packs/Day Years Used Date Smoking Tobacco: Never Smokeless Tobacco: Never Sex and Gender Information Value Date Recorded Sex Assigned at Not on file Gender Identity Not on file Sexual Orientation Not on file documented as of this encounter Miscellaneous Notes * Telephone Encounter - Isela Wise RN - 05/05/2018 11:16 AM EDT ===View-only below this line=== ----- Message ----- From: Jessica Simpson MD Sent: 05/03/2018 12:20 PM To: Isela Wise RN PS: please change f/u to 3 months and lab (first), then ultrasound before visit same day. Please remind her to stop apixaban 3 days before coming in. Also please request ultrasound report from PCP's office and also previous GI endoscopy and colonoscopy report. documented in this encounter Plan of Treatment Not on file documented as of this encounter Visit Diagnoses Not on filedocumented in this encounter Care Teams Transportation Agent Relationship Specialty Start Date End Date Teresa Trujillo APRN [address] [place] [address] PCP - General Family Medicine 02/14/18 documented as of this encounter
--- OUTSIDE RECORDS SUMMARY | 2023-10-08 15:18 | XMS_ITS | Encounter Summary ---
Author Organization [facility] Address [facility] [place] [address] Care Team Providers Care Market Development Director Name Role Phone Regina Sherwood APRN Primary Care Provider [phone] Encounter Details Date Type Department Care Team (Late st Contact Info) Description 06/12/2010 Abstract [place]ematology [place] [address] Sanket Norman Jr., MD [facility] HEMATOLOGY/[place] [address] Social History Tobacco Use Types Packs/Day Years Used Date Smoking Tobacco: Never Assessed Sex and Gender Information Value Date Recorded Sex Assigned at Not on file Gender Identity Not on file Sexual Orientation Not on file documented as of this encounter Plan of Treatment Not on file documented as of this encounter Visit Diagnoses Not on filedocumented in this encounter Care Teams Market Development Director Relationship Specialty Start Date End Date Regina Sherwood APRN PCP - General 03/28/10 02/13/18 documented as of this encounter
--- OUTSIDE RECORDS SUMMARY | 2023-10-08 15:18 | XMS_ITS | Encounter Summary ---
Author Organization [facility] Address [facility] [address] Care Team Providers Care Drill Presser Name Role Phone Teresa Trujillo APRN Primary Care Provider [phone] Reason for Visit * Reason Comments Advice Only * Consultation (Urgent) - Specialty Diagnoses / Procedures Referred By Althea gonzalez Referred To Contact Hematology and Oncology Diagnoses PULMONARY EMBOLISM Aysha Palencia APRN [address] [place] [address] [facility] [address] [place] [address] Referral ID Status Reason Start Date Expiration Date V isits Requested Visits Authorized [id number] Consult, Test & Treat Connection Center 02/14/2018 02/14/2019 1 1 Encounter Details Date Type Department Care Team (Late st Contact Info) Description 04/29/2018 11:00 AM EST Office Visit [place] [address] Jessica Simpson MD [facility] [address] [place] [address] Other acute pulmonary embolism with acute cor pulmonale (Primary Dx); Microcytic anemia; Recurrent deep vein thrombosis (DVT) Social History Tobacco Use Types Packs/Day Years Used Date Smoking Tobacco: Never Smokeless Tobacco: Never Sex and Gender Information Value Date Recorded Sex Assigned at Not on file Gender Identity Not on file Sexual Orientation Not on file documented as of this encounter Last Filed Vital Signs Vital Sign Reading Time Taken Comments Blood Pressure 117/77 04/29/2018 11:15 AM EST Pulse 67 04/29/2018 11:15 AM EST Temperature 36.6 ??C (97.9 ??F) 04/29/2018 11:[address] Respiratory Rate 20 04/29/2018 11:15 AM EST Oxygen Saturation 99% 04/29/2018 11:15 AM EST Inhaled Oxygen Concentration - - Weight 101.2 kg (223 lb) 04/29/2018 11:15 AM EST Height 161 cm (5' 3.39) 04/29/2018 11:15 AM EST Body Mass Index 39.02 04/29/2018 11:15 AM EST documented in this encounter Progress Notes * Jessica Simpson MD - 04/29/2018 11:00 AM EST Images from the original note were not included. [facility] [place] [id number] THROMBOSIS CONSULTATION DATE OF VISIT 04/29/2018 Patient Lauren Watkins 1960 REFERRING PHYSICIAN Teresa Trujillo APRN PRIMARY CARE PHYSICIAN Teresa Trujillo APRN REASON FOR CONSULTATION Evaluation of pulmonary embolism and duration of anticoagulation HISTORY OF THE PRESENT ILLNESS Lauren Watkins is a 58 y.o. woman with history of pulmonary embolism, who is seen in consultationat the request of Teresa Trujillo APRN for evaluation of pulmonary embolism. The history is obtained from the patient, and I have reviewed extensive medical records provided by the referring physician and located in the electronic medical record to fill in gaps in the patient's recollection of events, treatments and outcomes. Mrs. Watkins is a 58 year old woman with history of iron deficiency anemia who presented progressively worsening of shortness of breath since September 2017. She was in vacation in September 2017 and developed acute dyspnea on exertion, while climbing stairs in September 2017. Her symptom got better, but slowly declined to the point that she was dyspneic at rest. She initially attributed her dyspnea to her anemia. She has stopped taking iron supplements for several years and has restarted it then. However, her symptom did not get better. She was evaluated by her PCP in January 2018. She was sent to [facility], but because the CT machine was broken. Subsequently she went to [facility] and wasdiagnosed with right sided pulmonary emboli with evidence of right heart strain on CT. She was alsodiagnosed with a DVT in the right leg at later point, but she denies any new swelling. She did havea remote history of right leg DVT about 10 years ago and has had chronic right leg swelling since then and has not had changed. She was hospitalized for 2 days for her pulmonary emboli and was placedon heparin drip, bridged to enoxaparin and then warfarin. She was switched to apixaban about a weekafter and has been on it since then without any bleeding issues. There was no surgery, hospitalization, immobility, travel, trauma around the time of diagnosis of VTE. About 3 weeks after her initialdiagnosis of PE she has had significant right sided back pain and persistent dyspnea. Repeat CT 02/18/2018 revealed slightly decreased burden of pulmonary emboli. It was thought that her right sided back pain (not pleuritic in nature) could be due to her pulmonary emboli. She said that it took almost 2 months until she feels better. Currently her dyspnea has resolved. She still has some fatigue. Her right sided back pain has resolved. She only has a mild residual discomfort in the area. She stated that she did not have a health insurance at the time of diagnosis of pulmonary embolism. She nowhas a health insurance. Initially she paid over 200 dollar/month for her apixaban, but the kumar came down to 50 dollar/month last month. She was diagnosed with iron deficiency anemia and was seen by Dr. Norman, our crayon sawyer in 2010. She received 2 units of PRBC for Hg of 5. That was the only time that she received PRBC. She also underwent GI work up including EGD/Colonoscopy which showed no evidence of active bleeding. At that time she was post menopausal. She has never had any bowel surgery. She was treated with oral iron supplement with improvement of her anemia. She stated that she took iron supplements for 4-5 years, but did not have a follow-up blood count all those years. She has started iron supplement in September2017 and has continued it to current date. She stated that her hemoglobin has improved from 9 to 11. During the time of diagnosis of iron deficiency anemia she received PRBC and she was diagnosed withpneumonia and treated with antibiotics. During the course of that episode she had tenderness in herright calf and was told that she had a DVT and was started on Lovenox, bridging then to Coumadin therapy, which she took for 6 months. That was her first DVT event. She is up to date with cancer screening. Her last mammogram was within the last 2 years which was normal. Her last screening colonoscopy was 3 years ago which was negative as well without evidence ofpolyps. She was using low dose aspirin 81 mg PO daily for several years after initial DVT. She thinks that somebody told her to take it for secondary VTE prophylaxis following her first DVT. She has never had any cardiac disease or history of stroke. She stopped aspirin after starting apixaban. THROMBOSIS RISK FACTORS Risk Factor Comment Obesity (BMI >30 kg/m2) V/A Y Body mass index is 39.02 kg/m??. Diabetes V/A Current smoker V/A Estrogen or estrogen/progestin V/A V/A Inflammatory disease V/A Recent surgery (<3 months) V Recent hospitalization (<3 mo) V Recent travel (<3 mo) V Period of immobility V Documented thrombophilia V Accident/Trauma V/A Cancer or treatment for cancer V/A Blood transfusion V/A Central venous catheter V Family history (1st degree) V/A Y Maternal grandmother with recurrent DVT Varicose veins/venous insuff. V Hypertension A Hyperlipidemia A Vascular disease A V: Risk factor for venous thrombosis; A: Risk factor for arterial thrombosis PAST MEDICAL HISTORY Patient Active Problem List Diagnosis Code ??? Iron deficiency anemia D50.9 ??? Acute pulmonary embolism with acute cor pulmonale I26.09 ??? Recurrent deep vein thrombosis (DVT) I82.409 OPERATIVE PROCEDURES No past surgical history on file. OBSTETRIC HISTORY MEDICATIONS Outpatient Medications Marked as Taking for the 04/29/18 encounter (Office Visit) with Jessica Simpson MD Medication Sig Dispense Refill ??? apixaban (ELIQUIS) 5 mg Tablet Take 5 mg by mouth 2 times daily. ??? iron polysaccharides (FERREX 150) 150 mg capsule Take 150 mg by mouth 2 times daily. ??? multivitamin (THERAGRAN) tablet ADVERSE DRUG REACTIONS Allergies as of 04/29/2018 ??? (No Known Allergies) FAMILY HISTORY Maternal grandmother- history of blood clot in the leg, likely DVT, history of anemia, of old age at 94 Mother of E.coli infection in her 60. Father of lung infection in his 70s. Smoker. 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 No tobacco No alcohol , 2 children REVIEW OF SYSTEMS Fevers/chills/sweats No Recent infections No Unexplained weight loss No Headache/lightheadedness/syncope No Sinus pain/pressure No Oral sores/lesions/bleeding No Sore throat/dysphagia No Nosebleeds No Cough/SOB/chest pain/heart racing SOB resolved, right sided left back pain significantly better Nausea/vomiting/dyspepsia No Abdominal pain No Diarrhea/constipation No Urinary pain, burning, incontinence No Hematuria No Vaginal discharge/bleeding No Skin rashes/ulcers No Back/joint pain/swelling No Leg swelling/pain/redness Chronic right leg swelling unchanged Bruising/petechiae/bleeding/melena No Sensory/motor No Polydipsia/polyuria/heat/cold intol No Lumps/bumps/swollen glands No Other Fatigue PHYSICAL EXAMINATION BP 117/77 (Patient Position: Sitting) Pulse 67 Temp 36.6 ??C (97.9 ??F) (Temporal) Resp 20 Ht 161 cm (5' 3.39) Wt 101.2 kg (223 lb) SpO2 99% BMI 39.02 kg/m?? GENERAL: Well-appearing, articulate white female. HEENT: Oropharynx clear; no mucosal lesions, petechiae, bleeding, thrush or ulcers. NECK: Supple; no cervical, supraclavicular or submental adenopathy. BREASTS: Exam deferred. CHEST/LUNGS: Clear to auscultation/percussion. No rales, rhonchi, wheezes. HEART: Regular rate and rhythm; no murmur, rub, gallop GASTROINTESTINAL: Abdomen soft, non-tender, GENITOURINARY: Exam deferred. EXTREMITIES: No clubbing, cyanosis . Right leg slightly larger than left. No erythema, tenderness or palpable cords. MUSCULOSKELETAL: Spine nontender. No acutely inflamed joints. SKIN: No ecchymoses, petechiae, ulcers or rashes. LYMPH: No palpable lymph nodes. NEUROLOGIC: Alert, oriented. Speech clear, coherent. No focal deficits noted. PSYCHIATRIC: Appropriate affect, no apparent distress. LABORATORY STUDIES Thrombophilia testing today pending Lab Results Component Value Date WBC 6.8 04/29/2018 RBC 5.18 04/29/2018 HGB 11.4 (L) 04/29/2018 HCT 41.0 04/29/2018 MCV 79.2 (L) 04/29/2018 MCH 22.0 (L) 04/29/2018 MCHC 27.8 (L) 04/29/2018 PLATELET 400 (H) 04/29/2018 PLATELET 400 (H) 04/29/2018 RDWCV 23.7 (H) 04/29/2018 Ref. Range 04/29/2018 12:27 Ferritin Latest Ref Range: 30 - 400 ng/mL 23 (L) Iron Latest Ref Range: 30 - 150 mcg/dL 23 (L) TIBC Latest Ref Range: 250 - 450 mcg/dL 284 Iron Saturation Latest Ref Range: 20 - 50 % 8 (L) ??Smear Review DIAGNOSIS PERIPHERAL BLOOD, SMEAR: ?1. ??Mild microcytic, hypochromic anemia ?2. ??Thrombocytosis Electronically signed by: ??Kemal Dubois MD Verified: ??04/29/2018 ?Hematopathologist Performed at: ??-[facility] Dept. of Pathology, [place], [place] DISCUSSION The findings are comaptible with the reported history of iron deficiency. ADDITIONAL STUDIES WBC ??6.99h814/uL, RBC 5.18x10 6/uL, HGB 11.4g/dL, HCT 41%, MCV 79.2fL, MCHC 27.8g/dL, RDW-CV 23.7%, PLT 400x10 ?? 3/uL The peripheral smear shows a mild hypochromic microcytic anemia. Anisopoikilocytosis ??is increased, and elliptocytes, few target cells, and hypochromic microcytes are seen. Polychromasia is not significantly increased. There is a mild thrombocytosis, ??but platelet morphology is acceptable. The white cell count is normal, and all ??relative and absolute leukocyte counts are within reference limits. The neutrophils ??are mostly mature and without significant left-shift. Remaining leukocyte morphology ??is generally unremarkable. CLINICAL INFORMATION A 58 year old woman for whom smear review was requested to evaluate cytopenia. The ??clinical history is significant for severe iron deficieny RADIOGRAPHIC STUDIES CTA 02/06/2018 Extensive pulmonary emboli are noted on the right involving the main right pulmonary artery, arteryto the right upper lobe, right lower lobe and right middle lobe. Possible filling defects noted in the subsegmental vessels on the left. CT PE protocol & abdomen/pelvis with contrast 02/18/2018 1. Mildly decreased but persistent moderate right sided pulmonary arterial clot burden with evidence of right heart strain 2. No acute abdominal/pelvis process seeen IMPRESSION Lauren Watkins is a 58 y.o. woman with history of recurrent VTE and iron deficiency anemia who was referred to our Thrombosis clinic for evaluation of recurrent VTE and recommendation regarding duration of anticoagulation. Her previous right leg DVT appeared to be provoked during hospitalization for iron deficiency anemia when she received PRBC and she was also diagnosed with pneumonia at that time. She was adequately treated with a finite course of anticoagulation for 6 months at that time. Her recent extensive pulmonary embolism & recurrent DVT appeared to be unprovoked without clear precipitated temporary risk factor. Her other clinical risk factors include obesity and family history of VTE. Because of unprovoked nature of her VTE & her family history of VTE, I recommended her to undergo thrombophilia testing today. Lupus anticoagulant cannot be performed while on apixaban. I will ask her to stop ap ixaban at least 3 days before coming in at follow-up visit to complete the testing. Give that her VTE event was idiopathic, the risk for recurrence is up to 20-30% over the two years following discontinuation of anticoagulation. In addition to the idiopathic nature of the event and her other clinically relevant risk factors for recurrence include obesity. We reviewed the fact thatrecurrent events tend to recapitulate the initial event, and that pulmonary emboli carry with them a relatively high case-fatality rate (up to 25% in some studies). In light of this, I think her recurrence risk is high enough and the consequences of recurrence potentially severe enough that consideration for ongoing anticoagulation is in her best interest at this time. Anticoagulation reduces therisk for VTE recurrence to about <1% per year at the hazard of a major bleeding risk that is also about 1% per year. I conceded that life-threatening bleeding is risk but that the risk for this iscurrently outweighed by her risk for serious thrombosis without anticoagulation. She understands the risk/benefit of anticoagulation and opts to stay on anticoagulation. I am concerned of her iron deficiency anemia & I want to make sure that there is no evidence ofongoing bleeding, while on long-term anticoagulation. It appeared that she had a negative GI work up including EGD & colonoscopy in the past. She seemed to respond to iron supplement as her hemoglobin has improved from 9 to 11 range with iron supplements. I will request the information from PCPand make sure that her recent GI work up was completed as per her report. Today her lab is notable for improvement of her microcytic anemia. Her iron studies are consistent with iron deficiency anemia. Her thrombocytosis is reactive 2nd to iron deficiency anemia.Her peripheral smear did not suggestany other etiology of her anemia & thrombocytosis. I expected that her CBC will normalize once her iron deficiency anemia is resolved. However, if thrombocytosis persists, then additional work upis needed to rule out essential thrombocythemia which can be associated with VTE. I will also request additional medical record from PCP including ultrasound doppler result & echo. If she truly has had an evidence of right ventrical dysfunction on echo at initial diagnosis, then I will schedule a follow-up echo in 3 months along with repeat doppler. PLAN/RECOMMENDATIONS 1. Thrombophilia testing today - lupus anticoagulant cannot be performed while on apixaban. - hold apixaban 3 days before next follow-up visit. We will complete the testing next time 2. Continue apixaban 5 mg PO BID daily. Recommend long-term anticoagulation - if no evidence of high risk thrombophilia, will consider low dose apixaban 2.5 mg PO BID for long-term use after initial 6 months of treatment is completed 3. Anemia work up: iron studies, peripheral smear 4. Continue iron supplement for now with repeat CBC in 3 months 5. Request medical work up - previous GI work up (EGD/colo), ultrasound doppler, echo report 6. RTC in 3 months with repeat CBC/iron studies, ultrasound doppler, echo Lauren Burrell Nisa had the opportunity to ask questions and indicated that all her questions were answered to her satisfaction. She will follow up with me in 3 months to discuss the results of the thrombosis testing, and I will finalize my recommendations at that time. Jessica Simpson MD [facility] documented in this encounter Plan of Treatment Not on file documented as of this encounter Results * (ABNORMAL) Ferritin (09/02/2018 10:32 AM EDT) Ferritin 22(L) 30 - 400 ng/mL [facility] Comment: Pediatric reference ranges not verified at [facility], interpret with caution. Reference ranges for females greater than 50 years of age approach values for men, i.e., 30-400 ng/mL. Blood specimen (specimen) 09/02/2018 10:32 AM EDT 09/02/2018 10:56 AM EDT Narrative Resulting Agency Comment Spec In Lab Jessica Simpson MD CHEMISTRY ORDERABLES Performing Organization Address City/[facility]/ZIP Co de Phone Number [facility] [place] [address] * (ABNORMAL) Iron and TIBC (09/02/2018 10:32 AM EDT) Pathologist [facility] Iron 48 30 - 150 mcg/dL [facility] TIBC 271 250 - 450 mcg/dL [facility] Iron Saturation 18(L) 20 - 50 % [facility] Blood specimen (specimen) 09/02/2018 10:32 AM EDT 09/02/2018 10:56 AM EDT Narrative Resulting Agency Comment Spec In Lab Jessica Simpson MD CHEMISTRY ORDERABLES [facility] [place] [address] * Duplex for DVT, Leg, Unilat (09/02/2018 9:40 AM EDT) Pathologist [facility] VB Text Report Department: Vascular Surgery Lab Patient: [id number] (LAUREN WATKINS) CPT: 48489 ICD10: I82.409;I82.541 Referring Physician: JESSICA SIMPSON ?? Indications: 58 year old female with history of PE and RIGHT lower extremity DVT by OSP, currently on Eliquis, ? residual DVT/establish baseline ICD10 Diagnosis Code: I82.409, I82.541 Findings: RIGHT: Non-occlusive thrombus of indeterminate age in one of the paired posterior tibial veins from the upper to lower calf. The peroneal veins through the calf are patent but were not adequately visualized to exclude non-occlusive thrombus. Otherwise, patent common femoral vein and popliteal vein with spontaneous, respirophasic Doppler waveforms that respond normally to augmentation maneuvers. The common femoral vein, saphenofemoral junction, femoral vein through the thigh and popliteal vein are fully compressible. Interpretation: RIGHT: Non-occlusive thrombus of indeterminate age in the calf (one PTV). Additional calf DVT (peroneal veins) cannot be excluded. No evidence of CFV, FV or popliteal deep venous thrombosis. Notification: Jessica Simpson MD was notified of the preliminary findings. Comparison: ??No previous study in our vascular lab database for comparison. Electronically Signed by: JHON SCOTT on 2018-09-02 04:17:00 PM [facility] VB Text Report End of Report [facility] 09/02/2018 9:40 AM EDT Jessica Simpson MD VASCULAR ORDERABLES Performing Organization Address [facility] Co de Phone Number [email or web address] * Peripheral Smear Review (04/29/2018 12:27 PM EST) Peripheral Smear Review See Comment [facility] Comment: When completed by the Pathologist, report [id number] will display under Hematopathology Reports. Blood specimen (specimen) 04/29/2018 12:27 PM EST 04/29/2018 12:44 PM EST Narrative Resulting Agency Comment Spec In Lab Jessica Simpson MD HEMATOLOGY ORDERABLE S Performing Organization Address City/[facility] Co de Phone Number [facility] [place] [address] * Reticulocyte Count (04/29/2018 12:27 PM EST) Reticulocyte % 1.0 0.7 - 2.5 % [facility] Retic Abs # 0.050 0.020 - 0.110 x10(6)/mcL [facility] Immature Retic% 8.8 0.5 - 13.8 % [facility] Reticulated Hgb 30.7 29.8 - 39.[address] [facility] Blood specimen (specimen) 04/29/2018 12:27 PM EST 04/29/2018 12:44 PM EST Narrative Resulting Agency Comment Spec In Lab Jessica Simpson MD HEMATOLOGY ORDERABLE S Performing Organization Address [facility] Co de Phone Number [facility] [place] [address] * (ABNORMAL) Iron and TIBC (04/29/2018 12:27 PM EST) Iron 23(L) 30 - 150 mcg/dL [facility] TIBC 284 250 - 450 mcg/dL [facility] Iron Saturation 8(L) 20 - 50 % [facility] Blood specimen (specimen) 04/29/2018 12:27 PM EST 04/29/2018 12:44 PM EST Narrative Resulting Agency Comment Spec In Lab Jessica Simpson MD CHEMISTRY ORDERABLES Performing Organization Address City/[facility]/ZIP Co de Phone Number [facility] [place] [address] * (ABNORMAL) Ferritin (04/29/2018 12:27 PM EST) Ferritin 23(L) 30 - 400 ng/mL [facility] Comment: Pediatric reference ranges not verified at [facility], interpret with caution. Reference ranges for females greater than 50 years of age approach values for men, i.e., 30-400 ng/mL. Blood specimen (specimen) 04/29/2018 12:27 PM EST 04/29/2018 12:44 PM EST Narrative Resulting Agency Comment Spec In Lab Jessica Simpson MD CHEMISTRY ORDERABLES [facility] [place] [address] documented in this encounter Visit Diagnoses Diagnosis Other acute pulmonary embolism with acute cor pulmonale- Primary Microcytic anemia Iron deficiency anemia, unspecified Recurrent deep vein thrombosis (DVT) documented in this encounter Care Teams Drill Presser Relationship Specialty Start Date End Date Teresa Trujillo APRN [address] [place] [address] PCP - General Family Medicine 02/14/18 documented as of this encounter
--- OUTSIDE RECORDS SUMMARY | 2023-10-08 15:18 | XMS_ITS | Encounter Summary ---
[facility] Address [facility] [place] [address] Care Team Providers Care Geospatial Engineer Name Role Phone RonnieMariam masonyanet Callahan APRN Primary Care Provider [phone] Reason for Visit * Reason Comments Follow-up Encounter Details Date Type Department Care Team (Late st Contact Info) Description 09/02/2018 11:00 AM EDT Office Visit Hematology [place] [address] Jessica Simpson MD [facility] [address] HEMATOLOGY [place] [address] VTE (venous thromboembolism); Other iron deficiency anemia Social History Tobacco Use Types Packs/Day Years [...] Mass Index 38.94 09/02/2018 10:58 AM EDT documented in this encounter Progress Notes * Jessica Simpson MD - 09/02/2018 11:00 AM EDT Images from the original note were not included. [facility] [place] [address] THROMBOSIS FOLLOW-UP DATE OF VISIT 09/02/2018 Patient Lauren Paula 1960 REFERRING PHYSICIAN Teresa Trujillo APRN PRIMARY CARE PHYSICIAN Teresa Trujillo APRN REASON FOR CONSULTATION Evaluation of pulmonary embolism and duration of anticoagulation THROMBOSIS PROBLEM LIST 1. 10 years ago right sided DVT during diagnosis of iron deficiency anemia Tx: 6 months of warfarin 2. Jan 2018 right sided pulmonary embolism and right leg DVT unprovoked Tx: apixaban to current date Other hematology problem list 1. History of iron deficiency anemia with negative GI work up in the past - been taking iron supplement for years, stopped for over a year -recently restart on iron supplement HISTORY OF THE PRESENT ILLNESS Mrs. Paula is a 58 year old woman with [...] in January 2018. She was sent to [facility] ED, but because the CT machine was broken. Subsequently she went to [facility] and wasdiagnosed with right sided pulmonary emboli [...] and was seen by Dr. Norman, our improvement director in 2010. She received 2 units of [...] stroke. She stopped aspirin after starting apixaban. INTERIM HISTORY She returns today for follow-up of her pulmonary embolism and DVT. She continues to have some residual dyspnea when she overexert herself. Overall she feels better. She continues to take iron supplement at least once daily. She denies any constipation. She has not had any recent colonoscopy/EGD butprevious study was negative for bleeding per her. Her GERD has not bothered her and she is not taking PPI. She has noticed that she felt off balance in the morning when she gets up. She felt wobbly for a few minutes and usually the symptom goes away quickly. This only occurred first thing in the morning. She now pays about 50 dollar/month for apixaban. THROMBOSIS RISK FACTORS Risk Factor Comment Obesity (BMI >30 kg/m2) V/A Y Body mass index is 38.94 kg/m??. Diabetes V/A Current smoker V/A Estrogen [...] Outpatient Medications Marked as Taking for the 09/02/18 encounter (Office Visit) with Jessica Simpson MD Medication Sig Dispense Refill ??? apixaban (ELIQUIS) 5 mg Tablet Take 5 mg by mouth 2 times daily. ??? iron polysaccharides (FERREX 150) 150 mg capsule Take 150 mg by mouth 2 times daily. ??? multivitamin (THERAGRAN) tablet ADVERSE DRUG REACTIONS Allergies as of 09/02/2018 - Review Complete 09/02/2018 Allergen Reaction Noted ??? Influenza vaccine tr-s 09 (pf) Rash 04/29/2018 FAMILY HISTORY Maternal grandmother- history of blood [...] No Nosebleeds No Cough/SOB/chest pain/heart racing SOB on exertion, overall better. No chest pain Nausea/vomiting/dyspepsia No Abdominal pain No Diarrhea/constipation No Urinary pain, burning, incontinence No Hematuria No Vaginal discharge/bleeding No Skin rashes/ulcers No Back/joint pain/swelling No Leg swelling/pain/redness Chronic right leg swelling unchanged Bruising/petechiae/bleeding/melena No Sensory/motor No Polydipsia/polyuria/heat/cold intol No Lumps/bumps/swollen glands No Other Fatigue PHYSICAL EXAMINATION BP 119/74 (Patient Position: Sitting) Pulse 56 Temp 36.6 ??C (97.9 ??F) (Temporal) Resp 18 Ht 161.6 cm (5' 3.62) Wt 101.7 kg (224 lb 3.2 oz) SpO2 100% BMI 38.94 kg/m?? GENERAL: Well-appearing, articulate white female. HEENT: [...] no apparent distress. LABORATORY STUDIES Thrombophilia testing Ref. Range 04/29/2018 12:27 09/02/2018 10:32 PT Latest Ref Range: 9.4 - 12.5 sec 13.9 (H) INR Unknown 1.2 PTT Latest Ref Range: 25 - 37 sec 40 (H) Fibrinogen Latest Ref Range: 200 - 393 mg/dL 462 (H) Thrombin Time Latest Ref Range: 10 - 17 sec 14 THS Report Unknown See Comment dRVVT Latest Ref Range: <=1.20 IU/mL 0.87 Silica Clotting Time Latest Ref Range: <=1.16 ratio 1.11 APC Resistance Latest Ref Range: >=2.17 2.63 Antithrombin Latest Ref Range: 83 - 128 % 113 Protein C Act Latest Ref Range: 70 - 140 % 103 Protein S Act Latest Ref Range: 64 - 149 % activity 135 Homocyst Tot Latest Ref Range: <=15 mcmol/L 10 B2GPI IgG Latest Ref Range: <=20.0 unit(s) <9.4 B2GPI IgM Latest Ref Range: <=20.0 unit(s) <9.4 B2GPI Interp Unknown See Thrombosis Sc... Cardiolipin IgG Latest Ref Range: <=14.9 GPL unit(s) <9.4 Cardiolipin IgM Latest Ref Range: <=12.5 MPL unit(s) <9.4 Ref. Range 04/29/2018 12:27 Prothrombin Mutation Unknown Negative ??Thrombosis Screen DIAGNOSIS - No evidence for the presence of common hereditary/acquired hematologic ?? risk factors associated with unexplained venous or arterial ?? thromboembolism (see Discussion). Electronically signed by: ??Juanita Bravo MD Verified: ??05/09/2018 ?Hematopathologist Performed at: ??[facility] [place], [place] Ref. Range 04/29/2018 12:27 04/29/2018 12:27 09/02/2018 10:32 WBC Latest Ref Range: 4.0 - 9.5 x10(3)/mcL 6.8 7.0 RBC Latest Ref Range: 4.00 - 5.21 x10(6)/mcL 5.18 5.09 Hemoglobin Latest Ref Range: 11.7 - 15.5 gm/dL 11.4 (L) 13.7 Hematocrit Latest Ref Range: 35.7 - 45.8 % 41.0 43.9 MCV Latest Ref Range: 82.6 - 94.4 fL 79.2 (L) 86.2 MCH Latest Ref Range: 27.1 - 32.0 pg 22.0 (L) 26.9 (L) MCHC Latest Ref Range: 31.7 - 35.0 gm/dL 27.8 (L) 31.2 (L) RDWSD Latest Ref Range: 37.0 - 46.0 fL 67.2 (H) 47.3 (H) RDWCV Latest Ref Range: 11.5 - 14.1 % 23.7 (H) 14.7 (H) Platelets Latest Ref Range: 145 - 357 x10(3)/mcL 400 (H) 400 (H) 344 Ref. Range 06/13/2010 09:39 04/29/2018 12:27 09/02/2018 10:32 Ferritin Latest Ref Range: 30 - 400 ng/mL 8 (L) 23 (L) 22 (L) Iron Latest Ref Range: 30 - 150 mcg/dL 56 23 (L) 48 TIBC Latest Ref Range: 250 - 450 mcg/dL 344 284 271 Iron Saturation Latest Ref Range: 20 - 50 % 16 (L) 8 (L) 18 (L) RADIOGRAPHIC STUDIES CTA 02/06/2018 Extensive pulmonary emboli [...] strain 2. No acute abdominal/pelvis process seeen Today doppler of the right leg Interpretation: ?? RIGHT: Non-occlusive thrombus of indeterminate age in the calf (one PTV). Additional calf DVT (peroneal veins) cannot be excluded. No evidence of CFV, FV or popliteal deep venous thrombosis. IMPRESSION Lauren Paula is a 58 y.o. woman with history of recurrent VTE and iron deficiency anemia who was referred to our Thrombosis clinic for evaluation of recurrent VTE and recommendation regarding duration of anticoagulation. Today she is here for follow-up to discuss lab result and anticoagulation management. Her previous right leg DVT appeared to [...] VTE, I recommended her to undergo thrombophilia testing. Her thrombophilia testing showed no evidence of inherited thrombophilia nor acquired thrombophilia such as antiphospholipid syndrome. Previously I was not able to perform lupus anticoagulant because she was on apixaban. Today she held apixaban 3 days in anticipation of lab testing. Her lab showed negative lupus anticoagulant. As discussed previously that he risk for recurrence is up to 20-30% over the two years following discontinuation of anticoagulation. Anticoagulation reduces the risk for VTE recurrence to about <1% per year at the hazard of a major bleeding risk that is also about 1% per year. I conceded that life-threatening bleeding is risk but that the risk for this is currently outweighed by her risk for se rious thrombosis without anticoagulation. She understands the risk/benefit of anticoagulation and opts to stay on anticoagulation. Now that she is > 6 months out from her acute VTE, I think we can reduce apixaban to 2.5 mg PO twice daily for long-term use based on below study. The AMPLIFY-EXT was the study evaluating efficacy/safety of different doses of apixaban after completion for acute treatment for 6 months for secondary VTE prophylaxis.The AMPLIFY-EXT showed that symptomatic VTE recurrence occurred in 8.8 who received placebo, 1.7% in patients receiving apixaban 2.5 mg PO BID and 1.7% in patients receiving apixaban 5 mg PO BID. The rates of major bleeding were 0.5% in the placebo group, 0.2% in the 2.5-mg apixaban group, and 0.1% in the 5-mg apixaban group. Therates of clinically relevant nonmajor bleeding were 2.3% in the placebo group, 3.0% in the 2.5-mg apixaban group, and 4.2% in the 5- mg apixaban group. The rate of from any cause was 1.7% in theplacebo group. ( Apixaban for extended treatment for VTE, MIKE, [place] et al 2013; 368:699-708) Today we repeated doppler study to establish a new baseline. She has a small residual DVT in the leg. I reassured her that this is not at risk of embolization at this point. This last ultrasound should serve her as a baseline. Unfortunately I don't have her initial doppler report to compare with. Lauren also has a long standing history of recurrent iron deficiency anemia. Previously she had negative GI work up and she was post menopausal at that time. She has been taking iron supplement for years, but stopped for over a year. I have recommended to restart iron supplement. Today her CBC showed resolution of anemia and previous reactive thrombocytosis has resolved. Her ferritin remains low in the 20 range. I recommend to continue iron supplement for now. She can have a repeat CBC and ironstudies done with her PCP in 3 months. She may benefit from a repeat GI work up if this was done a while ago. PLAN/RECOMMENDATIONS 1. Continue watermelon inspector anticoagulation with apixaban - continue apixaban 5 mg PO twice daily until finishing her supply - I recommend to reduce apixaban to 2.5 mg PO twice daily at next refill. I will ask her PCP to continue refilling her script. - I gave her a 10 dollar co pay/month coupon that she can activate. 2 Continue iron supplement and recommend to have CBC & iron studies recheck in 3 months with PCP 3. Consider repeat GI work up to rule out source of bleeding if this was not done recently Lauren Paula had the opportunity to ask questions and indicated that all her questions were answered to her satisfaction. I won't schedule her back for follow-up, but if she has any questions of concerns, she can call our office. Jessica Simpson MD [facility] documented in this encounter Plan of Treatment Not on file documented as of this encounter Visit Diagnoses Diagnosis VTE (venous thromboembolism) Embolism and thrombosis of unspecified site Other iron deficiency anemia documented in this encounter Care Teams Geospatial Engineer Relationship Specialty Start Date End Date Teresa Trujillo APRN [address] [place] [address] PCP - General Family Medicine 02/14/18 documented as of this encounter
--- OUTSIDE RECORDS SUMMARY | 2023-10-08 15:18 | XMS_ITS | Encounter Summary ---
Author Organization [facility] Address [address] [place] [address] Care Team Providers Care Site Administrator Name Role Phone Mango Magana MD Primary Care Provider [phone] Encounter Details Date Type Department Care Team (Late st Contact Info) Description 08/01/[address] [facility] Non-Invasive Cardiology - [facility] [address], [place] [address] Regina Sehrwood, JOSE F [address] [place] [address] Social History Tobacco Use Types Packs/Day Years Used Date Smoking Tobacco: Never Assessed Sex and Gender Information Value Date Recorded Sex Assigned at Not on file Gender Identity Not on file Sexual Orientation Not on file documented as of this encounter Plan of Treatment Not on file documented as of this encounter Procedures Procedure Name Priority Date/Time Associated Diagnosis Comments PAP TEST- RESULT ONLY Routine 08/01/2010 0:00 EDT documented in this encounter Results * PAP TEST- RESULT ONLY (08/01/2010 0:00 EDT) Pathology Report: CYTOPATHOLOGY REPORT ? Reports generated via electronic interface contain original data; ? however they are lacking the format of the original report. ? Caution should be taken when reading/interpreti ng unformatted reports. ? Name: ? LAUREN WATKINS ? Accession #: ? [id number] ? : ? 1960 (Age: 50) ??F ?Collect Date: ? 08/01/2010 ? Location: ? [facility] ? Receive Date: ? 08/02/2010 ? Provider: ?REGINA KOHLER ? Copy to: ? Specimen/Source: ?Pap Test, Endocervix, ThinPrep Imaging System with ? manual evaluation ? Last Menstrual Period: ? 03/2010 ? Other: ? Additional clinical information: FINANCIAL SYSTEMS ANALYST clinical and treatment history: ? SPECIMEN ADEQUACY ? Satisfactory for Evaluation ? - transformation zone component present ? GENERAL CATEGORIZATION ? Negative for Intraepithelial Lesion or Malignancy ? Document reviewed and electronically signed by: ? Araceli Claudia, CT(ASCP) ? Report Date: ??08/08/2010 14:06 ? End of Report ? [facility] 08/01/2010 08/02/2010 Regina KOHLER PATHOLOGY ORDERABLES Performing Organization Address City/State/[facility] Co de Phone Number [facility] [address] [place] [address] documented in this encounter Visit Diagnoses Not on filedocumented in this encounter Care Teams Site Administrator Relationship Specialty Start Date End Date Mango Magana MD [address] [place] [address] PCP - General 07/12/08 10/05/15 documented as of this encounter
--- OUTSIDE RECORDS SUMMARY | 2023-10-08 15:18 | XMS_ITS | Encounter Summary ---
Author Organization [facility] Address [address] [place] [address] Care Team Providers Care Junior Java Developer Name Role Phone Mango Magana MD Primary Care Provider [phone] Encounter Details Date Type Department Care Team (Latest Contact Info) Description 10/03/2015 9:45 EDT - 10/03/2015 23:59 EDT Hospital Encounter [address] [address] Unknown, Provider, Discharge Disposition: Home or Self Care Social History Tobacco Use Types Packs/Day Years Used Date Smoking Tobacco: Never Assessed Sex and Gender Information Value Date Recorded Sex Assigned at Not on file Gender Identity Not on file Sexual Orientation Not on file documented as of this encounter Discharge Disposition Disposition Code Departure Means Destination Home or Self Alf documented in this encounter Plan of Treatment Not on file documented as of this encounter Visit Diagnoses Not on filedocumented in this encounter Care Teams Junior Java Developer Relationship Specialty Start Date End Date Mango Magana MD [address] [facility] [place] [address] PCP - General 07/12/08 10/05/15 documented as of this encounter
--- OUTSIDE RECORDS SUMMARY | 2023-10-08 15:18 | XMS_ITS | Encounter Summary ---
Author Organization [facility] Address [address] [place] [address] Care Team Providers Care Head Refrigeration Engineer Name Role Phone Mango Magana MD Primary Care Provider [phone] Encounter Details Date Type Department Care Team (Late st Contact Info) Description 08/01/2010 12:19 EDT - 08/01/2010 12:20 EDT Hospital Encounter [address] [address] Regina Sherwood ARNP [address] [place] [address] Discharge Disposition: Home or Self Care Social History Tobacco Use Types Packs/Day Years Used Date Smoking Tobacco: Never Assessed Sex and Gender Information Value Date Recorded Sex Assigned at Not on file Gender Identity Not on file Sexual Orientation Not on file documented as of this encounter Discharge Disposition Disposition Code Departure Means Destination Home or Self Care documented in this encounter Plan of Treatment Not on file documented as of this encounter Visit Diagnoses Not on filedocumented in this encounter Care Teams Head Refrigeration Engineer Relationship Specialty Start Date End Date Mango Magana MD [address] [facility] [place] [address] PCP - General 07/12/08 10/05/15 documented as of this encounter
--- OUTSIDE RECORDS SUMMARY | 2023-10-08 15:18 | XMS_ITS | Encounter Summary ---
Author Organization [facility] Address [facility] [place] [address] Care Team Providers Care Soda Fountain Clerk Name Role Phone Presley, Regina BOWERS Primary Care Provider [phone] Encounter Details Date Type Department Care Team (Late st Contact Info) Description 03/28/2010 9:45 AM EST - 03/28/2010 11:59 PM EST Hospital Encounter Hematology [place] [address] Social History Tobacco Use Types Packs/Day Years Used Date Smoking Tobacco: Never Assessed Sex and Gender Information Value Date Recorded Sex Assigned at Not on file Gender Identity Not on file Sexual Orientation Not on file documented as of this encounter Plan of Treatment Not on file documented as of this encounter Procedures Procedure Name Priority Date/Time Associated Diagnosis Comments SCAN, PERIPHERAL BLOOD STAT 1 9:51 AM EST DIFFERENTIAL, AUTOMATED STAT 03/28/2010 9:51 AM EST IRON AND TIBC STAT 03/28/2010 9:51 AM EST RETICULOCYTE COUNT STAT 03/28/2010 9: 51 AM EST CBC (WITH DIFF) STAT 03/28/2010 9:51 AM EST FERRITIN STAT 03/28/2010 9:51 AM EST COMPREHENSIVE METABOLIC PANEL STAT 03/28/2010 9:51 AM EST documented in this encounter Results * REFLEX LAB-SCAN (03/28/2010 9:51 AM EST) Plat estimate Increased CERNER MILLENNIUM RBC Morphology Abnormal CERNE R MILLENNIUM Microcyte 6-10 /HPF CERNER MILLENNIUM Hypochromia Moderate CERNER MILLENNIUM Ovalocytes 1-5 /HPF CERNER MILLENNIUM Tear Cell 1-5 /HPF CERNER MILLENNIUM Target Cells 1-5 /HPF CERNER MILLENNIUM Plat, Giant Less than 1 /HPF CERNER MILLENNIUM Blood specimen (specimen) 03/28/2010 9:51 AM EST 03/28/2010 10:09 AM EST Sanket Norman Jr., MD HEMATOLOGY O RDERABLES CERNER MILLENNIUM * (ABNORMAL) REFLEX LAB-A-DIFF (03/28/2010 9:51 AM EST) Neutrophil % 71.8(H) 34.0 - 71.0 % CERNER MILLENNIUM Neutrophil Absolute 6.76(H) 1.50 - 6.30 x10(3)/mc L CERNER MILLENNIUM Lymph % 18.6(L) 19.0 - 53.0 % CERNER MILLENNIUM Lymphocytes Abs 1.8 1.0 - 3.6 x10(3)/mc L CERNER MILLENNIUM Monocyte % 7.7 4.0 - 13.0 % CERNER MILLENNIUM Monocyte Abs 0.7 0.2 - 1.0 x10(3)/mc L CERNER MILLENNIUM Eos % 1.0 0.0 - 7.0 % CERNER MILLENNIUM Eosinophils Abs 0.1 0.0 - 0.5 x10(3)/mc L CERNER MILLENNIUM Basophil % 0.7 0.0 - 2.0 % CERNER MILLENNIUM Baso Absolute 0.1 0.0 - 0.2 x10(3)/mc L CERNER MILLENNIUM Immature Gran % 0.20 0.00 - 0.66 % CERNER MILLENNIUM Comment: Immature granulocytes(IG's)percentage and absolute count will include metamyelocytes, myelocytes, and promyelocytes. Blood smears from CBCs yielding IG's will be scanned manually for concordance. If this scan disagrees with the automated IG or if promyelocytes are noted, a manual differential will be performed. Immature Gran Absolute 0.02 0.00 - 0.05 x10(3)/mc L CERNER MILLENNIUM Blood specimen (specimen) 03/28/2010 9:51 AM EST 03/28/2010 10:09 AM EST Sanket Norman Jr., MD HEMATOLOGY O RDERABLES CERNELY SALDIVARENNIUM * (ABNORMAL) FERRITIN (03/28/2010 9:51 AM EST) Pathologist [facility] Ferritin 3(L) 15 - 150 ng/mL CERNER MILLENNIUM Comment: Pediatric reference ranges not verified at [facility], interpret with caution. Reference ranges for females greater than 50 years of age approach values for men, i.e., 30-400 ng/mL. Blood specimen (specimen) 03/28/2010 9:51 AM EST 03/28/2010 10:09 AM EST Sanket Norman Jr., MD CHEMISTRY OR DERABLES Performing Organization Address [facility]/ZIP Co de Phone Number CERNELY SALDIVARENNIUM * (ABNORMAL) RETICULOCYTE COUNT (03/28/2010 9:51 AM EST) Pathologist [facility] Reticulocyte % 0.8 0.5 - 2.4 % CERNER MILLENNIUM Retic Abs # 0.040 0.027 - 0.095 x10(6)/mcL CERNER MILLENNIUM Immature Retic% 23.7(H) 2.3 - 15.9 % CERNER MILLENNIUM Reticulated Hgb 17.8(L) 28.8 - 38.9 pg CERNER MILLENNIUM Immature Plt % 3.9 0.0 - 7.4 % CERNER MILLENNIUM Blood specimen (specimen) 03/28/2010 9:51 AM EST 03/28/2010 10:09 AM EST Sanket Norman Jr., MD HEMATOLOGY O RDERABLES Performing Organization Address [facility] de Phone Number CERNER MILLENNIUM * (ABNORMAL) CBC (03/28/2010 9:51 AM EST) White Blood Cell 9.4 4.0 - 10.0 x10(3)/mc L CERNER MILLENNIUM Red Blood Cell 4.83 3.93 - 5.22 x10(6)/mc L CERNER MILLENNIUM Hemoglobin 8.9(L) 11.2 - 15.7 gm/dL CERNER MILLENNIUM Hematocrit 32.6(L) 34.0 - 45.0 % CERNER MILLENNIUM Mean Cell Volume 67.5(L) 79.0 - 94.0 fL CERNER MILLENNIUM Mean Cell Hemoglobin 18.4(L) 26.6 - 32.2 pg CERNER MILLENNIUM Mean Cell Hemoglobin Concentration 27.3(L) 32.0 - 36.5 gm/dL CERNER MILLENNIUM Platelet 516(H) 145 - 370 x10(3)/mc L CERNER MILLENNIUM RDW Standard Deviation 52.0(H) 35.0 - 46.0 fL CERNER MILLENNIUM RDW coefficient of variation 21.2(H) 10.9 - 14.4 % CERNER MILLENNIUM Mean Platelet Volume 9.6 9.0 - 12.0 fL CERNER MILLENNIUM Blood specimen (specimen) 03/28/2010 9:51 AM EST 03/28/2010 10:09 AM EST Sanket Norman Jr., MD HEMATOLOGY O RDAZIZA Performing Organization Address [facility]/State/ZIP Co de Phone Number CERNER MILLENNIUM * (ABNORMAL) IRON AND TIBC (03/28/2010 9:51 AM EST) Iron 13(L) 30 - 150 mcg/dL CERNER MILLENNIUM TIBC 390 250 - 450 mcg/dL CERNER MILLENNIUM Iron Saturation 3(L) 20 - 50 % CERN ER MILLENNIUM Blood specimen (specimen) 03/28/2010 9:51 AM EST 03/28/2010 10:09 AM EST Sanket Norman Jr., MD CHEMISTRY OR DERABLES CERNER YARIELENNIUM * (ABNORMAL) COMPREHENSIVE METABOLIC PANEL (NON-FASTING) (03/28/2010 9:51 AM EST) Glucose 101 <=199 mg/dL CERNER MILLENNIUM Comment:Diabetes: >=200 mg/d L plus symptoms Blood Urea Nitrogen 10 8 - 18 mg/dL CERNER MILLENNIUM Creatinine 0.66(L) 0.70 - 1.20 mg/dL CERNER MILLENNIUM Sodium 138 135 - 145 mmol/L CERNER MILLENNIUM Potassium 3.7 3.5 - 5.0 mmol/L CERNER MILLENNIUM Comment: Please note: ??Patients with WBC >100,000 may have falsely elevated Potassium levels. ??For accurate Potassium quantification in these patients send serum separator tube (gold top) for subsequent determinations. ??Contact the Clinical Chemistry Laboratory if there are any questions. Chloride 104 98 - 107 mmol/L CERNER MILLENNIUM Carbon Dioxide 24 22 - 31 mmol/L CERNER MILLENNIUM Anion Gap 10 5 - 15 mmol/L CERNER MILLENNIUM Calcium 9.1 8.5 - 10.5 mg/dL CERNER MILLENNIUM Protein, Total 7.6 6.4 - 8.3 gm/dL CERNER MILLENNIUM Albumin 4.3 3.2 - 5.2 gm/dL CERNER MILLENNIUM Aspartate Aminotransferase 17 0 - 30 unit/L CERNER MILLENNIUM Alanine Aminotransferase 13 0 - 30 unit/L CERNER MILLENNIUM Alkaline Phosphatase 68 40 - 104 unit/L CERNER MILLENNIUM Bilirubin, [...] disease. References: http://nkdep.nih.gov/resources/NKDEP_Suggestn4Labs_0606_508.pdf http://www.kidney.org/professionals/kls/pdf/faq_gfr.pdf Blood specimen (specimen) 03/28/2010 9:51 AM EST 03/28/2010 10:09 AM EST Sanket Norman Jr., MD CHEMISTRY OR DERABLES Performing Organization Address City/State/[facility] Phone Number [facility] documented in this encounter Visit Diagnoses Not on filedocumented in this encounter Care Teams Soda Fountain Clerk Relationship Specialty Start Date End Date Regina Sherwood APRN PCP - General 03/28/10 02/13/18 documented as of this encounter
--- OUTSIDE RECORDS SUMMARY | 2023-10-08 15:18 | XMS_ITS | Encounter Summary ---
Author Organization [facility] Address [facility] [address] Care Team Providers Care Promotions Specialist Name Role Phone Teresa Trujillo ELISSA Primary Care Provider [phone] Encounter Details Date Type Department Care Team (Late st Contact Info) Description 09/05/2018 Telephone [place]ematology [place] [address] Marilyn Gutierrez, RN Social History Tobacco Use Types Packs/Day Years Used Date Smoking Tobacco: Never Smokeless Tobacco: Never Sex and Gender Information Value Date Recorded Sex Assigned at Not on file Gender Identity Not on file Sexual Orientation Not on file documented as of this encounter Miscellaneous Notes * Telephone Encounter - Marilyn Gutierrez RN - 09/05/2018 9:21 AM EDT Date of Encounter: September 05, [address] Simpson, called patient to discuss labs and reduction in apixaban dose. Awaiting call back. Called PCP's office relayed message about decreasing Apixiban dose to 2.5 mg. Also, faxed Dr. Simpson's note and flagged the recommendations below. Marilyn Gutierrez, MSN RN Per Dr. Simpson, the patient's anemia has resolved but her ferritin is still low. I recommend her to continue iron supplement daily. She should have CBC and iron studies check with her PCP in 3-4 months. Her lupus anticoagulant is negative. I also recommend to reduce apixaban dose to 2.5 mg PO BIDat her next refill . She can have it refilled through PCP. Can you also please call PCP's office and let them know that I recommend to reduce apixaban dose to 2.5 mg pO twice daily at next refill? Follow-up PRN with me. Thanks, Jessica documented in this encounter Plan of Treatment Not on file documented as of this encounter Visit Diagnoses Not on filedocumented in this encounter Care Teams Promotions Specialist Relationship Specialty Start Date End Date Teresa Trujillo, LEGAL BILLING ANALYST [address] [place] [address] PCP - General Family Medicine 02/14/18 documented as of this encounter
--- OUTSIDE RECORDS SUMMARY | 2023-10-08 15:18 | XMS_ITS | Encounter Summary ---
[place] [address] Care Team Providers Care Courtroom Deputy Or Calendar Clerk Name Role Phone Teresa Trujillo ELISSA Primary Care Provider [phone] Encounter Details Date Type Department Care Team (Late st Contact Info) Description 11/16/2021 Interpretation Only [address] [phone] Momo Griffiths MD [address] [place] [address] Social History Tobacco Use Types Packs/Day Years [...] Diagnosis Comments XR CHEST ONE VIEW STAT 11/16/2021 2:3 5 PM EDT documented in this encounter Results * XR Chest One View (11/16/2021 2:35 PM EDT) PT CLASS E DH RAD ADMITDTTM RAD PT RAD INFO [id number]^F INDROWAN^QUYNH PETERSON CHAD RAD EXAM DESC XCXR1^XR CHEST 1 VIEW^RIS RAD Anatomical Region Laterality Modality Chest N/A Radiographic Christi ging Impressions 11/16/2021 2:38 PM EDT No acute cardiopulmonary pathology detected. Thank you for letting us participate in the care of this patient. ??If you are a health care provider and have any questions regarding this report, please contact the number below. ??For patients who have questions please contact the health child day care provider that requested your imaging first. ? Electronically signed by: Ricardo Zapien MD, [facility] ([phone]), at 11/16/2021 2:38 PM Narrative 11/16/2021 2:38 PM EDT EXAMINATION: XR CHEST 1 VIEW CLINICAL HISTORY: dyspnea TECHNIQUE: Frontal radiograph of the chest COMPARISON: CT chest February 18, 2018 FINDINGS: Low lung volumes. The lungs are clear. The heart is largely obscured. No pneumothorax or pleural effusions detected. Procedure Note Ricardo Zapien MD - 11/16/2021 EXAMINATION: XR CHEST 1 VIEW CLINICAL HISTORY: dyspnea TECHNIQUE: Frontal radiograph of the chest COMPARISON: CT chest February 18, 2018 FINDINGS: Low lung volumes. The lungs are clear. The heart is largely obscured. No pneumothorax or pleural effusions detected. IMPRESSION No acute cardiopulmonary pathology detected. Thank you for letting us participate in the care of this patient. If youare a health care provider and have any questions regarding this report,please contact the number below. For patients who have questions please contactthe health child day care provider that requested your imaging first. Electronically signed by: Ricardo Zapien MD, [facility]([phone]), at 11/16/2021 2:38 PM Momo Griffiths MD IMG DX ORDERABL ES documented in this encounter Visit Diagnoses Not on filedocumented in this encounter Care Teams Courtroom Deputy Or Calendar Clerk Relationship Specialty Start Date End Date Teresa Trujillo APRN [address] [place] [address] PCP - General Family Medicine 02/14/18 documented as of this encounter
--- OUTSIDE RECORDS SUMMARY | 2023-10-08 15:18 | XMS_ITS | Encounter Summary ---
Author Organization [facility] Address [address] [place] [address] Care Team Providers Care Sourcing Intern Name Role Phone Mango Magana MD Primary Care Provider [phone] Encounter Details Date Type Department Care Team (Late st Contact Info) Description 10/03/2015 Results Only [facility]- [facility] [phone] Rocio Chapman MD [facility] [place], [place] [id number] Social History Tobacco Use Types Packs/Day Years Used Date Smoking Tobacco: Never Assessed Sex and Gender Information Value Date Recorded Sex Assigned at Not on file Gender Identity Not on file Sexual Orientation Not on file documented as of this encounter Plan of Treatment Not on file documented as of this encounter Procedures Procedure Name Priority Date/Time Associated Diagnosis Comments SURGICAL PATHOLOGY Routine 10/03/2015 10 :16 EDT documented in this encounter Results * SURGICAL PATHOLOGY (10/03/2015 10:16 EDT) Pathology Report: SURGICAL PATHOLOGY REPORT Reports generated via electronic interface contain original data; however they are lacking the format of the original report. Caution should be taken when reading/interpretin g unformatted reports. Name: ? WATKINS LAUREN ? Accession #: ? [id number] ? : ? 1960 (Age: 55) ??F ? Collect Date: ? 10/03/2015 ? Location: ? [facility] ? Receive Date: ? 10/04/2015 ? Provider: ROCIO CHAPMAN MD Copy to: JOSELYN BROOKS BACK TENDER FOURDRINIER ? Final Pathologic Diagnosis: A. 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 B. GASTROESOPHAGEAL JUNCTION, BIOPSY: - ??Squamocolumnar junctional mucosa with histologic features of reflux esophagitis. - ??Negative for intestinal metaplasia; Negative for dysplasia. ?? Document reviewed and electronically signed by: TRI WALDEN MD Report ??Date: 10/06/2015 10:54 By the signature above, the attending physician certifies that he/she has personally conducted a gross and/or microscopic examination of the described specimens and rendered or confirmed the above diagnosis. Specimen(s) Received: A. ??Bx duodenum (#1) B. ??Bx GE junction (#2) Clinical History: Anemia Gross Description: A. ?Received in formalin labelled with proper patient identification (initials P, D) and bx duodenum are three brown-stacy tissues ranging from 0.2 x 0.2 x 0.1 cm to 0.3 x 0.2 x 0.1 cm. Entirely submitted in A1. B. ?Received in formalin labelled with proper patient identification (initials P, D) and bx GE junction are two soft simpson-mason tissues averaging 0.4 x 0.2 x 0.2 cm. Entirely submitted in B1. Sara Holman 10/04/2015 11:04 AM End of Report [facility] 10/03/2015 10:1 6 EDT 10/04/2015 10:16 EDT Rocio Chapman MD PATHOLOGY ORDEROsmany SUAZO [facility] [address] [place] [address] documented in this encounter Visit Diagnoses Not on filedocumented in this encounter Care Teams Sourcing Intern Relationship Specialty Start Date End Date Mango Magana MD [address] [facility] [place] [address] PCP - General 07/12/08 10/05/15 documented as of this encounter
--- OUTSIDE RECORDS SUMMARY | 2023-10-08 15:18 | XMS_ITS | Encounter Summary ---
Author Organization [facility] Address [address] [place] [address] Care Team Providers Care Paste Up Copy Camera Operator Name Role Phone Teresa Trujillo ELISSA Primary Care Provider [phone] Encounter Details Date Type Department Care Team (Latest Contact Info) Description 03/18/2019 Lab Requisition [facility] Pathology & Laboratory Medicine - [facility] [address] [place] [address] Aysha Palencia FNP [address] [facility] [address] [place] [address] Encounter for general adult medical examination without abnormal findings; Encounter for screening for malignant neoplasm of cervix; Encounter for gynecological examination (general) (routine) without abnormal findings Social History Tobacco Use Types Packs/Day Years Used Date Smoking Tobacco: Never Assessed Sex and Gender Information Value Date Recorded Sex Assigned at Not on file Gender Identity Not on file Sexual Orientation Not on file documented as of this encounter Plan of Treatment Not on file documented as of this encounter Procedures Procedure Name Priority Date/Time Associated Diagnosis Comments PAP TEST Today 03/18/2019 9:00 EST Encounter for general adult medical examination without abnormal findings Encounter for screening for malignant neoplasm of cervix Encounter for gynecological examination (general) (routine) without abnormal findings HPV DNA DETECTION WITH GENOTYPING, PCR Today 03/18/2019 9:00 EST Encounter for general adult medical examination without abnormal findings Encounter for screening for malignant neoplasm of cervix Encounter for gynecological examination (general) (routine) without abnormal findings documented in this encounter Results * HUMAN PAPILLOMAVIRUS (HPV) DETECTION-HIGH RISK TYPES (03/18/2019 9:00 EST) HPV other High Risk types, PCR Negative Negative 03/26/2019 8:08 [facility] Comment:No E6 or E7 mRNA is detected from HPV types 16,18,31,33,35,39,45,51,52,56,58,59,66, and 68 by house admin mediated amplification. Papanicolaou smear specimen (specimen) CERVIX UTERI STRUCTURE / Unknown 03/18/2019 9:00 EST 03/24/2019 13:03 EST Aysha Palencia CASE ADVOCATE MICROBIOLOGY - GENER AL ORDERABLES [facility] [address] [place] [address] * PAP TEST (03/18/2019 9:00 EST) Specimens A. Cervix and/or Endocervix, , ThinPrep Imaging System with Manual Evaluation 03/26/2019 8:08 [facility] Specimen Adequacy Satisfactory for Evaluation - transformation zone component present 03/26/2019 8:08 [facility] General Categorization Negative for intraepithelial lesion or malignancy 03/26/2019 8:08 [facility] Attestation By the signature below, the attending physician certifies that they have personally conducted a gross and/or microscopic examination of the described specimens and rendered or confirmed the above diagnosis. 03/26/2019 8:08 [facility] at 0808 Clinical History 200903/26/19 20 8:08 [facility] HPV The result for the Human Papillomavirus (HPV) Detection-High Risk Types is Negative. No E6 or E7 mRNA is detected from HPV types 16,18,31,33,35,39 ,45,51,52,56,58,5 9,66, and 68 by house admin mediated amplification.Francesca ting was performed on specimen [id number] and was resulted on 03/26/2019 0747 EST by CANDICE, LAB INSTRUMENT RESULTS IN 03/26/2019 8:08 [facility] Scanned Images 03/26/2019 8:08 [facility] Papanicolaou smear specimen (specimen) CERVIX UTERI STRUCTURE / Unknown 03/18/2019 9:00 EST 03/18/2019 15:40 EST Aysha EGAN PATHOLOGY ORDERABLES [facility] [address] [place] [address] documented in this encounter Visit Diagnoses Diagnosis Encounter for general adult medical examination without abnormal findings Unspecified general medical examination Encounter for screening for malignant neoplasm of cervix Screening for malignant neoplasm of the cervix Encounter for gynecological examination (general) (routine) without abnormal findings documented in this encounter Care Teams Paste Up Copy Camera Operator Relationship Specialty Start Date End Date Teresa Trujillo APRN [address] [place] [address] PCP - General 10/06/15 documented as of this encounter
--- OUTSIDE RECORDS SUMMARY | 2023-10-08 15:18 | XMS_ITS | Encounter Summary ---
Author Organization [facility] Address [address] [place] [address] Care Team Providers Care Ramp Service Employee Name Role Phone Mango Magana MD Primary Care Provider [phone] Encounter Details Date Type Department Care Team (Late st Contact Info) Description 04/15/2012 Results Only [facility] Laboratory Services - [facility] [address] [place], [place] [address] Rito Karimi FNP [address] [place] [address] Social History Tobacco Use Types Packs/Day Years [...] Diagnosis Comments PAP TEST- RESULT ONLY Routine 04/15/2012 0:00 EST documented in this encounter Results * PAP TEST- RESULT ONLY (04/15/2012 0:00 EST) Pathology Report: CYTOPATHOLOGY REPORT Reports generated via electronic interface contain original data; however they are lacking the format of the original report. Caution should be taken when reading/interpreti ng unformatted reports. Name: ? WATKINSLAUREN Peres ? Accession #: ? [id number] : ? 1960 (Age: 51) ??F ?Collect Date: ? 04/15/2012 Location: ? [facility] ? Receive Date: ? 04/16/2012 Provider: ?RITO KARIMI BRANCH SERVICE ASSOCIATE Copy to: ? Specimen/Source: ?Pap Test, Cervix/Endocervix, ThinPrep Imaging System with manual evaluation Last Menstrual Period: ? brigitte ? SPECIMEN ADEQUACY ? Satisfactory for Evaluation - transformation zone component present GENERAL CATEGORIZATION ? Negative for Intraepithelial Lesion or Malignancy ? Document reviewed and electronically signed by: ? LAKEISHA Foster(ASCP) ? Report Date: ??04/17/2012 16:25 End of Report MELI RAMIREZ 04/15/2012 04/16/2012 Rito Karimi BRANCH SERVICE ASSOCIATE PATHOLOGY ORDERABLES Performing Organization Address City/State/[facility] Co de Phone Number MELI RAMIREZ [address] [place] [address] documented in this encounter Visit Diagnoses Not on filedocumented in this encounter Care Teams Ramp Service Employee Relationship Specialty Start Date End Date Mango Magana MD [address] [place] [address] PCP - General 07/12/08 10/05/15 documented as of this encounter
--- OUTSIDE RECORDS SUMMARY | 2023-10-08 15:18 | XMS_ITS | Encounter Summary ---
Author Organization [facility] [place] [address] Care Team Providers Care Paper Pattern Inspector Name Role Phone Regina Sherwood APRN Primary Care Provider Encounter Details Date Type Department Care Team (Late st Contact Info) Description 04/18/2010 10:10 AM EST - 04/18/2010 11:59 PM [facility] Hospital Encounter Hematology [place] [address] Social History Tobacco Use Types Packs/Day Years Used Date Smoking Tobacco: Never Assessed Sex and Gender Information Value Date Recorded Sex Assigned at Not on file Gender Identity Not on file Sexual Orientation Not on file documented as of this encounter Medications at Time of Discharge Medication Sig Dispensed Refills Start Date End Date multivitamin (THERAGRAN) tablet 1 documented as of this encounter Plan of Treatment Not on file documented as of this encounter Visit Diagnoses Not on filedocumented in this encounter Care Teams Paper Pattern Inspector Relationship Specialty Start Date End Date Regina Sherwood APRN PCP - General 03/28/10 02/13/18 documented as of this encounter
--- OUTSIDE RECORDS SUMMARY | 2023-10-08 15:18 | XMS_ITS | Encounter Summary ---
Author Organization [place] [address] Care Team Providers Care Dye Can Operator Name Role Phone Teresa Trujillo APRN Primary Care Provider [phone] Encounter Details Date Type Department Care Team (Latest Contact Info) Description 04/29/2018 12:13 PM EST - 04/29/2018 11:59 PM EST Hospital Encounter Hematology [place] [id number] Microcytic anemia; Other acute pulmonary embolism with acute cor pulmonale Discharge Disposition: Home Social History Tobacco Use [...] Associated Diagnosis Comments PATHOLOGY SLIDE REVIEW Routine 04/29/2018 12:27 PM EST Microcytic anemia TT Routine 04/29/2018 12:27 PM EST Other acute pulmonary embolism with acute cor pulmonale PTT Routine 04/29/2018 12:27 PM EST Other acute pulmonary embolism with acute cor pulmonale PT Routine 04/29/2018 12:27 PM EST Other acute pulmonary embolism with acute cor pulmonale PLAT Routine 04/29/2018 12:27 PM EST Other acute pulmonary embolism with acute cor pulmonale FIBR Routine 04/29/2018 12:27 PM EST Other acute pulmonary embolism with acute cor pulmonale THROMBOSIS SCREEN Routine 04/29/2018 12: 27 PM EST Other acute pulmonary embolism with acute cor pulmonale THS REPORT Routine 04/29/2018 12:27 PM EST Other acute pulmonary embolism with acute cor pulmonale SCAN, PERIPHERAL BLOOD Routine 04/29/2018 12:27 PM EST PROTEIN S ACTIVITY Routine 04/29/2018 12 :27 PM EST HEMOGRAM Routine 04/29/2018 12:27 PM EST Microcytic anemia DIFFERENTIAL, AUTOMATED Routine 04/29/2018 12:27 PM EST Microcytic anemia APC RESISTANCE Routine 04/29/2018 12:27 PM EST PROTHROMBIN GENE MUTATION Routine 04/29/2018 12:27 PM EST IRON AND TIBC Routine 04/29/2018 12:27 PM EST Microcytic anemia BETA-2 GLYCOPROTEIN ANTIBODIES Routine 04/29/2018 12:27 PM EST Other acute pulmonary embolism with acute cor pulmonale PROTEIN C ACTIVITY Routine 04/29/2018 12 :27 PM EST CARDIOLIPIN ANTIBODY SCREEN Routine 04/29/2018 12:27 PM EST Other acute pulmonary embolism with acute cor pulmonale ANTITHROMBIN Routine 04/29/2018 12:27 PM EST RETICULOCYTE COUNT Routine 04/29/2018 12 :27 PM EST Microcytic anemia CBC (WITH DIFF) Routine 04/29/2018 12:27 PM EST Microcytic anemia HOMOCYSTEINE TOTAL, PLASMA Routine 04/29/2018 12:27 PM EST Other acute pulmonary embolism with acute cor pulmonale FERRITIN Routine 04/29/2018 12:27 PM EST Microcytic anemia THROMBOSIS SCREEN REPORT Routine 04/29/2018 12:16 PM EST PATHOLOGY SLIDE REVIEW Routine 04/29/2018 12:16 PM EST documented in this encounter Results * Prothrombin gene mutation (04/29/2018 12:27 PM EST) Prothrombin Mutation Negative [facility] Prothrombin Mutation Interp RESULT: NEGATIVE for the Factor II 66703X>A variant in 3? untranslated region of the prothrombin gene INTERPRETATION: The negative finding indicates that this patient is not at increased risk of thrombosis resulting from a Factor II 32217U>A associated elevation of prothrombin. Negative results indicate the absence of the prothrombin 22352S>A variant ([id number] 13G>A, [id number]), but do not rule out the presence of other rare variants within the prothrombin gene or other causes of thromboembolic disease. Clinical correlation is recommended. METHODS: The region of interest in the Prothrombin gene (72057O>A) is interrogated using a TaqMan allelic discrimination assay. Genomic DNA was isolated from the submitted peripheral blood specimen. Real-time PCR was performed to amplify a short region spanning the variant site, and genotyping was performed by allelic discrimination using a mixture of fluorescently labeled probes, one of which is specific for the reference sequence, the other specific for the variant allele. This test was developed and its performance characteristics determined by the [facility] at [facility] [place] [facility]. It has not been cleared or approved by the FDA. The laboratory is regulated under CLIA as qualified to perform high-complexity testing. This test is used for clinical purposes. It should not be regarded as investigational or for research. [facility] Comment: [VERIFIED DATE]05.08.18 Verified By:Elina HICKS, Meli Pineda Pathologist (Electronic Signature) Blood specimen (specimen) Venous Draw / Unknown 04/29/2018 12:27 PM EST 04/30/2018 10:37 AM EST Narrative Resulting Agency Comment Spec In Lab Jessica Simpson MD MOLECULAR ORDERABLES Performing Organization Address [facility] Co de Phone Number [facility] [place] [address] * Protein S Activity (04/29/2018 12:27 PM EST) Protein S Act 135 64 - 149 % activity [facility] Blood specimen (specimen) Venous Draw / Unknown 04/29/2018 12:27 PM EST 04/29/2018 12:44 PM EST Narrative Resulting Agency Comment Spec In Lab Jessica Simpson MD HEMATOLOGY ORDERABLE S Performing Organization Address City/[facility] Co de Phone Number [facility] [place] [address] * Protein C activity (04/29/2018 12:27 PM EST) Protein C Activity 103 70 - 140 % [facility] Blood specimen (specimen) Venous Draw / Unknown 04/29/2018 12:27 PM EST 04/29/2018 12:44 PM EST Narrative Resulting Agency Comment Spec In Lab Jessica Simpson MD HEMATOLOGY ORDERABLE S Performing Organization Address City/[facility] Co de Phone Number [facility] [place] [address] * Antithrombin (04/29/2018 12:27 PM EST) Antithrombin III Assay 113 83 - 128 % [facility] Blood specimen (specimen) Venous Draw / Unknown 04/29/2018 12:27 PM EST 04/29/2018 12:44 PM EST Narrative Resulting Agency Comment Spec In Lab Jessica Simpson MD HEMATOLOGY ORDERABLE S Performing Organization Address City/[facility]/ZIP Co de Phone Number [facility] [place] [address] * APC resistance (04/29/2018 12:27 PM EST) [facility] Activated Protein C Resistance 2.63 >=2.17 [facility] Blood specimen (specimen) Venous Draw / Unknown 04/29/2018 12:27 PM EST 04/29/2018 12:44 PM EST Narrative Resulting Agency Comment Spec In Lab Jessica Simpson MD HEMATOLOGY ORDERABLE S Performing Organization Address City/[facility]/ZIP Co de Phone Number [facility] [place] [address] * Scan, Peripheral Blood (04/29/2018 12:27 PM EST) [facility] Plat estimate Increased [facility] RBC Morphology Abnormal [facility] Microcyte 1-5 /HPF [facility] Hypochromia Slight [facility] Ovalocytes 1-5 /HPF [facility] Blood specimen (specimen) 04/29/2018 12:27 PM EST 04/29/2018 12:44 PM EST Narrative Resulting Agency Comment Spec In Lab Jessica Simpson MD HEMATOLOGY ORDERABLE S Performing Organization Address City/[facility]/ZIP Co de Phone Number [facility] [place] [address] * Beta-2 glycoprotein antibodies (04/29/2018 12:27 PM EST) [facility] Beta 2 Glycoprotein, IgG <9.4 <=20.0 unit(s) [facility] Beta 2 Glycoprotein, IgM <9.4 <=20.0 unit(s) [facility] B2GPI Interp See Thrombosis Screen Report [id number] Hematopatholo gy Reports. [facility] Blood specimen (specimen) 04/29/2018 12:27 PM EST 04/30/2018 7:16 AM EST Narrative Resulting Agency Comment Spec In Lab Jessica Simpson MD IMMUNOLOGY ORDERABLE S Performing Organization Address [facility] Co de Phone Number [facility] [place] [address] * Homocysteine Total, Plasma (04/29/2018 12:27 PM EST) Homocystine 10 <=15 mcmol/L [facility] Blood specimen (specimen) 04/29/2018 12:27 PM EST 04/29/2018 12:44 PM EST Narrative Resulting Agency Comment Spec In Lab Jessica Simpson MD CHEMISTRY ORDERABLES Performing Organization Address [facility] Phone Number [facility] [place] [address] * Cardiolipin Antibody Screen (04/29/2018 12:27 PM EST) Cardiolipin Antibody IgG <9.4 <=14.9 GPL unit(s) [facility] Comment: Ranges ?? GPL ------ ?? --- Negative ?? <=14.9 Indeterminate ??15.0 - 20.0 Low/Medium Positive 20.1 - 80.0 High Positive ??>80.0 Cardiolipin Antibody IgM <9.4 <=12.5 MPL unit(s) [facility] Comment: Ranges ?? MPL ------ ?? --- Negative ?? <=12.5 Indeterminate ??12.6 - 20.0 Low/Medium Positive 20.1 - 80.0 High Positive ??>80.0 Blood specimen (specimen) 04/29/2018 12:27 PM EST 04/30/2018 7:16 AM EST Narrative Resulting Agency Comment Spec In Lab Jessica Simpson MD IMMUNOLOGY ORDERABLE S Performing Organization Address [facility]/ZIP Co de Phone Number [facility] [place] [address] * THS Report (04/29/2018 12:27 PM EST) THS Report See Comment [facility] Comment:See Thrombosis Scree n Report [id number] under Hematopathology Reports. Blood specimen (specimen) 04/29/2018 12:27 PM EST 04/29/2018 12:44 PM EST Narrative Resulting Agency Comment Spec In Lab Jessica Simpson MD HEMATOLOGY ORDERABLE S [facility] [place] [address] * (ABNORMAL) Plat (04/29/2018 12:27 PM EST) Platelet 400(H) 145 - 357 x10(3)/mc L [facility] Immature Plt % 1.9 0.0 - 7.4 % [facility] Comment: Limitation of the Immature Platelet Fraction (IPF)-May be less reliable when the platelet count is less than 23i461/uL due to statistical imprecision. The IPF value provides an assessment of the Bone Marrow production status. ??It is useful in differentiating Thrombocytopenia caused by platelet destruction/consumption versus decreased production. It also helps to determine the imminent release of platelets and can be therefore a helpful parameter in Chemotherapy and Bone marrow transplant patients. ELEVATED IPF value: ?? When the bone marrow is in a state of over production such as when increased destruction and consumption are the underlying issue. ?? When the marrow is recovering post chemotherapy or bone marrow transplant. LOW to NORMAL IPF value: ?? When the bone marrow in not responding and is in a decreased state of production. References: [employer] The Clinical Value of the Immature Platelet Fraction (IPF) in Cell Recovery Document Number 10-1143 07/2010 [employer] The Role of the Immature Platelet Fraction (IPF) in the Differential Diagnosis of Thrombocytopenia, Document MKT-[id number] V05 P007/08 Blood specimen (specimen) 04/29/2018 12:27 PM EST 04/29/2018 12:44 PM EST Narrative Resulting Agency Comment Spec In Lab Jessica Simpson MD HEMATOLOGY ORDERABLE S Performing Organization Address [facility] Co de Phone Number [facility] [place] [address] * TT (04/29/2018 12:27 PM EST) Thrombin Time 14 10 - 17 sec [facility] Comment: A prolongation in the thrombin time (>20 seconds) may be indicative of hypofibrinogenemia or dysfibrinogenemia. The thrombin time will be prolonged, often markedly so, by the presence of heparin or direct thrombin inhibitors (argatroban, bivalirudin, dabigatran) in the specimen. Blood specimen (specimen) 04/29/2018 12:27 PM EST 04/29/2018 12:44 PM EST Narrative Resulting Agency Comment Spec In Lab Jessica Simpson MD HEMATOLOGY ORDERABLE S Performing Organization Address [facility] Co de Phone Number [facility] [place] [address] * (ABNORMAL) FIBR (04/29/2018 12:27 PM EST) Fibrinogen 462(H) 200 - 393 mg/dL [facility] Comment: A fibrinogen level >100 mg/dL is adequate for hemostasis in most patients without underlying bleeding disorders. Blood specimen (specimen) 04/29/2018 12:27 PM EST 04/29/2018 12:44 PM EST Narrative Resulting Agency Comment Spec In Lab Jessica Simpson MD HEMATOLOGY ORDERABLE S Performing Organization Address [facility] Co de Phone Number [facility] [place] [address] * (ABNORMAL) PTT (04/29/2018 12:27 PM EST) Partial Thromboplastin Time 40(H) 25 - 37 sec [facility] Comment: The PTT is NOT appropriate for heparin monitoring. Use the Anti-Xa level for heparin monitoring (HEP UFH) or LMWH monitoring (HEP LMW). A PTT less than 37 seconds generally indicates adequate hemostasis. Blood specimen (specimen) 04/29/2018 12:27 PM EST 04/29/2018 12:44 PM EST Narrative Resulting Agency Comment Spec In Lab Jessica Simpson MD HEMATOLOGY ORDERABLE S Performing Organization Address [facility] de Phone Number [facility] [place] [address] * (ABNORMAL) PT (04/29/2018 12:27 PM EST) Prothrombin Time 13.9(H) 9.4 - 12.5 sec [facility] International Normalization Ratio 1.2 [facility] Comment: An INR <2.0 indicates adequate procoagulant activity for hemostasis in most patients without underlying bleeding disorders, though the INR may not adequately reflect hemostatic capacity in patients with liver disease and synthetic impairment. The recommended target INR range for therapeutic anticoagulation is 2.0 ? 3.0 for most applications, though lower and higher ranges may be appropriate depending on clinical circumstances. Blood specimen (specimen) 04/29/2018 12:27 PM EST 04/29/2018 12:44 PM EST Narrative Resulting Agency Comment Spec In Lab Jessica Simpson MD HEMATOLOGY ORDERABLE S Performing Organization Address [facility] de Phone Number [facility] [place] [address] * Differential, Automated (04/29/2018 12:27 PM EST) Neutrophil % 71.1 % [facility] Neutrophil Absolute 4.82 1.70 - 6.10 x10(3)/[facility] Lymph % 17.0 % [facility] Lymphocytes Abs 1.2 0.9 - 3.2 x10(3)/[facility] Monocyte % 8.9 % [facility] Monocyte Abs 0.6 0.3 - 0.9 x10(3)/[facility] Eos % 1.8 % [facility] Eosinophils Abs 0.1 0.0 - 0.4 x10(3)/[facility] Basophil % 0.9 % [facility] Baso Absolute 0.1 0.0 - 0.1 x10(3)/[facility] Immature Gran % 0.30 % [facility] Comment: Immature granulocytes(IG's)percentage and absolute count will include metamyelocytes, myelocytes, and promyelocytes. Blood smears from CBCs yielding IG's will be scanned manually for concordance. If this scan disagrees with the automated IG or if promyelocytes are noted, a manual differential will be performed. Immature Gran Absolute 0.02 0.00 - 0.04 x10(3)/[facility] Blood specimen (specimen) 04/29/2018 12:27 PM EST 04/29/2018 12:44 PM EST Narrative Resulting Agency Comment Spec In Lab Jessica Simpson MD HEMATOLOGY ORDERABLE S Performing Organization Address City/State/[facility] Co de Phone Number [facility] [place] [address] * (ABNORMAL) Hemogram (04/29/2018 12:27 PM EST) White Blood Cell 6.8 4.0 - 9.5 x10(3)/mc L [facility] Red Blood Cell 5.18 4.00 - 5.21 x10(6)/mc L [facility] Hemoglobin 11.4(L) 11.7 - 15.5 gm/dL [facility] Hematocrit 41.0 35.7 - 45.8 % [facility] Mean Cell Volume 79.2(L) 82.6 - 94.4 fL [facility] Mean Cell Hemoglobin 22.0(L) 27.1 - 32.0 pg [facility] Mean Cell Hemoglobin Concentration 27.8(L) 31.7 - 35.0 gm/dL [facility] Platelet 400(H) 145 - 357 x10(3)/mc L [facility] RDW Standard Deviation 67.2(H) 37.0 - 46.0 fL [facility] RDW coefficient of variation 23.7(H) 11.5 - 14.1 % [facility] Mean Platelet Volume 10.3 7.6 - 12.9 fL [facility] NRBC% auto 0.0 % [facility] NRBC Absolute 0.000 0.000 - 0.000 x10(3)/mc L [facility] Blood specimen (specimen) 04/29/2018 12:27 PM EST 04/29/2018 12:44 PM EST Narrative Resulting Agency Comment Spec In Lab Jessica Simpson MD HEMATOLOGY ORDERABLE S Performing Organization Address [facility] Co de Phone Number [facility] [place] [address] * (ABNORMAL) Ferritin (04/29/2018 12:27 PM EST) Ferritin 23(L) 30 - 400 ng/mL [facility] Comment: Pediatric reference ranges not verified at [facility] [place], interpret with caution. Reference ranges for females greater than 50 years of age approach values for men, i.e., 30-400 ng/mL. Blood specimen (specimen) 04/29/2018 12:27 PM EST 04/29/2018 12:44 PM EST Narrative Resulting Agency Comment Spec In Lab Jessica Simpson MD CHEMISTRY ORDERABLES Performing Organization Address City/[facility] Co de Phone Number [facility] [place] [address] * (ABNORMAL) Iron and TIBC (04/29/2018 12:27 PM EST) Iron 23(L) 30 - 150 mcg/dL [facility] TIBC 284 250 - 450 mcg/dL [facility] Iron Saturation 8(L) 20 - 50 % [facility] Blood specimen (specimen) 04/29/2018 12:27 PM EST 04/29/2018 12:44 PM EST Narrative Resulting Agency Comment Spec In Lab Jessica Simpson MD CHEMISTRY ORDERABLES Performing Organization Address [facility] de Phone Number [facility] [place] [address] * Reticulocyte Count (04/29/2018 12:27 PM EST) Reticulocyte % 1.0 0.7 - 2.5 % [facility] Retic Abs # 0.050 0.020 - 0.110 x10(6)/mcL [facility] Immature Retic% 8.8 0.5 - 13.8 % [facility] Reticulated Hgb 30.7 29.8 - 39.4 pg [facility] Blood specimen (specimen) 04/29/2018 12:27 PM EST 04/29/2018 12:44 PM EST Narrative Resulting Agency Comment Spec In Lab Jessica Simpson MD HEMATOLOGY ORDERABLE S Performing Organization Address [facility] de Phone Number [facility] [place] [address] * Peripheral Smear Review (04/29/2018 12:27 PM EST) Peripheral Smear Review See Comment [facility] Comment: When completed by the Pathologist, report [id number] will display under Hematopathology Reports. Blood specimen (specimen) 04/29/2018 12:27 PM EST 04/29/2018 12:44 PM EST Narrative Resulting Agency Comment Spec In Lab Jessica Simpson MD HEMATOLOGY ORDERABLE S Performing Organization Address [facility] Co de Phone Number [facility] [place] [address] * Thrombosis Screen Report (04/29/2018 12:16 PM EST) Thrombosis Screen Report [id number] ? Location: The signing pathologist has (i) examined the relevant preparation(s) for the specimen(s) and (ii) rendered or confirmed the diagnosis(es). . ? Thrombosis Screen DIAGNOSIS - No evidence for the presence of common hereditary/acquire d hematologic ??risk factors associated with unexplained venous or arterial ??thromboembolism (see Discussion). Electronically signed by: ??Lawrence HICKS, Juanita Cobb Verified: ??05/09/2018 ?Hematopathologis t Performed at: ??-[facility] [place] [facility] Dept. of Pathology, [place], [place] ADDITIONAL STUDIES TEST ?(REFERENCE RANGE) ?RESULT Platelet count ?(145,000-357,000 /uL) ?400,000/cumm PT ?(9.4-12.5) ?13.9 sec PTT ? (25-37) ? 40 sec Fibrinogen ?(200-393) ?462 mg/dl Thrombin time ? (10-17) ? 14 sec APC resistance, ratio ? (>2.17) ? 2.63 Antithrombin ?(83-128%) ? 113% Protein C* ?(70-140%) ? 103% Protein S* ?(64-149%) ? 135% Lupus anticoagulant (DRVVT ratio) (<1.20) ? Not performed Lupus anticoagulant (SCT ratio) ?? (<1.16) ? Not performed Anticardiolipin antibodies ?(IgG </= 14.9 GPL) ?<9.4 GPL Anticardiolipin antibodies ?(IgM </= 12.5 MPL) ?<9.4 MPL Xkqy-5-fkvkyknphby n-1 antibodies ??(IgG </= 20 units) ?IgG <9.4 units Vwhy-5-wlirpyystmu n-1 antibodies ??(IgM </= 20 units) ?IgM <9.4 units Homocysteine, random, plasma ?(</=15 umol/L) ?10 umol/L Factor V Leiden Mutation ?(normal) ?Not performed Prothrombin (72761 G->A) mutation (normal) ?Negative * Functional assay for free Protein S and Protein C Not performed due to potential interference from direct oral anticoagulant. The screening test for activated protein C resistance is negative, thus there is no evidence for the presence of factor V Leiden. ??The DNA assay for factor V Leiden is therefore not indicated and was not performed as part of this study. DISCUSSION Tests for a lupus anticoagulant cannot be performed on this specimen as this patient is currently being treated with a direct oral anticoagulant (_). Lupus anticoagulant testing is unreliable in the presence of this class of medications, thus if antiphospholipid syndrome is suspected clinically, suggest separate LA testing after an anticoagulant hiatus of at least 72 hours. Note that tests for anticardiolipin and mute-vojo-7-GP1 antibodies are accurate in the presence of these medications and the results are NEGATIVE in this study. ?Similarly, levels of protein C and protein S may be overestimated in the presence of rivaroxaban or apixaban. If there is strong suspicion for a deficiency of one of these proteins, suggest repeat testing after discontinuation of the potentially interfering medication. Although the thrombophilia screening panel is negative, this individual may have additional as yet undefined genetic or environmental risk factors for venous thrombosis. Consultation with a thrombosis specialist or genetic counselor may be . DISCUSSION helpful for further characterizing specific thrombosis risk for this patient, if clinically appropriate. 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 Maternal grandmother has history of recurrent DVT. [facility] [facility] 04/29/2018 12:1 6 PM EST Jessica Simpson MD PATHOLOGY/CYTOLOGY Abhinav MADISON [facility] [place] [address] * Smear Review Report (04/29/2018 12:16 PM EST) Smear Review Report [id number] ? Location: 3K The signing pathologist has (i) examined the relevant preparation(s) for the specimen(s) and (ii) rendered or confirmed the diagnosis(es). . ? Smear Review DIAGNOSIS PERIPHERAL BLOOD, SMEAR: ?? 1. ??Mild microcytic, hypochromic anemia ?? 2. ??Thrombocytosis Electronically signed by: ??Kemal Dubois MD Verified: ??04/29/2018 ?Hematopathologist Performed at: ??-[facility] [place] Dept. of Pathology, [place], [place] DISCUSSION The findings are comaptible with the reported history of iron deficiency. ADDITIONAL STUDIES WBC ??6.28u007/uL, RBC 5.18x10 6/uL, HGB 11.4g/dL, HCT 41%, MCV 79.2fL, MCHC 27.8g/dL, RDW-CV 23.7%, PLT 400x10 ?? 3/uL The peripheral smear shows a mild hypochromic microcytic anemia. Anisopoikilocytosis is increased, and elliptocytes, few target cells, and hypochromic microcytes are seen. Polychromasia is not significantly increased. There is a mild thrombocytosis, but platelet morphology is acceptable. The white cell count is normal, and all relative and absolute leukocyte counts are within reference limits. The neutrophils are mostly mature and without significant left-shift. Remaining leukocyte morphology is generally unremarkable. CLINICAL INFORMATION A 58 year old woman for whom smear review was requested to evaluate cytopenia. The clinical history is significant for severe iron deficiency. [facility] 04/29/2018 12:1 6 PM EST Jessica Simpson MD HEMATOLOGY ORDERABLE S [facility] [place] [address] documented in this encounter Visit Diagnoses Diagnosis Microcytic anemia Iron deficiency anemia, unspecified Other acute pulmonary embolism with acute cor pulmonale documented in this encounter Care Teams Dye Can Operator Relationship Specialty Start Date End Date Teresa Trujillo APRN [address] [place] [address] PCP - General Family Medicine 02/14/18 documented as of this encounter
--- OUTSIDE RECORDS SUMMARY | 2023-10-08 15:18 | XMS_ITS | Clinical Summary ---
Author Organization [facility] Address [address] [place] [address] Care Team Providers Care Assorter Laundry Name Role Phone Teresa Trujillo APRN Primary Care Provider [phone] Social History Tobacco Use Types Packs/Day Years Used Date Smoking Tobacco: Never Assessed Sex and Gender Information Value Date Recorded Sex Assigned at Not on file Gender Identity Not on file Sexual Orientation Not on file Plan of Treatment Health Maintenance Due Date Last Done Comments Hepatitis C Screen 1960 RSV Immunization ( o r 60+ Years) (1 - 1-dose 60+ series) 2020 COVID-19 Vaccine (2022-24 season) 2022 Care Teams Assorter Laundry Relationship Specialty Start Date End Date Teresa Trujillo APRN [address] [place] [address] PCP - General 10/06/15
--- OUTSIDE RECORDS SUMMARY | 2023-10-08 15:18 | XMS_ITS | Encounter Summary ---
Author Organization [facility] Address [facility] [place] [address] Care Team Providers Care Air Brush Decorator Name Role Phone Regina Sherwood ELISSA Primary Care Provider [phone] Reason for Visit * Reason Comments Follow-up Encounter Details Date Type Department Care Team (Late st Contact Info) Description 06/13/2010 9:32 AM EDT - 06/13/2010 11:59 PM EDT Hospital Encounter [place] [address] Sanket Norman Jr., MD [facility] HEMATOLOGY/[place] [address] Iron deficiency anemia Discharge Disposition: Home Social History Tobacco Use Types Packs/Day Years Used Date Smoking Tobacco: Never Sex and Gender Information Value Date Recorded Sex Assigned at Not on file Gender Identity Not on file Sexual Orientation Not on file documented as of this encounter Last Filed Vital Signs Vital Sign Reading Time Taken Comments Blood Pressure 130/88 06/13/2010 9:58 AM EDT Pulse 70 06/13/2010 9:58 AM EDT Temperature 36.6 ??C (97.9 ??F) 06/13/2010 9:58 AM ED T Respiratory Rate 20 06/13/2010 9:58 AM EDT Oxygen Saturation 100% 06/13/2010 9:58 AM EDT Inhaled Oxygen Concentration - - Weight 108 kg (238 lb 1.6 oz) 06/13/2010 9:58 AM EDT Height 163 cm (5' 4.17) 06/13/2010 9:58 AM EDT Body Mass Index 40.65 06/13/2010 9:58 AM EDT documented in this encounter Medications at Time of Discharge Medication Sig Dispensed Refills Start Date End Date iron polysaccharides (FERREX 150) 150 mg capsule Take 150 mg by mouth 2 times daily. multivitamin (THERAGRAN) tablet 04/18/2010 aspirin 81 mg chewable tablet Take 81 mg by mouth daily. 04/29/2018 Ferrous Fumarate 325 mg (106 mg Iron) Tab Take 1 tablet by mouth daily. 06/12/2010 04/29/2018 documented as of this encounter Progress Notes * Sanket Norman Jr., MD - 06/13/2010 10:36 AM EDT 50 yo F with hx of severe iron defic ret to clinic for follow up and evaluation. Has been on iron polysaccharide taking one or two caps daily, depending on GI sx. Overall, she feels that this Rx has been much easier to tolerate than other iron preps. She is pleased to inform me that her picca sx (table salt) have resolved. She denies abdm milton, black or blood tinged stools. Exam: Pleasant woman accompanied by , NAD. VS: Note and stable. Skin: clear HEENT: eyes: sclera not icteric Chest: heart: RRR. Extrem: no edema Neuol: non -focal. LaB: Imp Hgb and MCV. Assess: Doing well on Ferrex-150 qd or bid. No picca. Overall iomproved sense of well being. Plan: Cotinue iron Rx as noted.. RTC in 6 mo. Comment: Discussed excellent results of iron tx w/ pt and . Advised pt to be aware of possible GI irritation fro ASA and consider taking in AM. Advised to call PCP for new sx. Srikanth Norman MD documented in this encounter Plan of Treatment Not on file documented as of this encounter Visit Diagnoses Diagnosis Iron deficiency anemia Iron deficiency anemia, unspecified documented in this encounter Care Teams Air Brush Decorator Relationship Specialty Start Date End Date Regina Sherwood APRN PCP - General 03/28/10 02/13/18 documented as of this encounter
--- OUTSIDE RECORDS SUMMARY | 2023-10-08 15:18 | XMS_ITS | Encounter Summary ---
Author Organization [facility] Address [address] [place] [address] Care Team Providers Care Diamond Powder Technician Name Role Phone Unavailable Primary Care Provider Unavailabl e Encounter Details Date Type Department Care Team (Late st Contact Info) Description 11/27/2006 15:14 EDT Hospital Encounter [facility] - Other [address] [place] [address] Regina Sherwood, JOSE F [address] [place] [address] Discharge Disposition: Auto Discharge Social History Tobacco Use Types Packs/Day Years Used Date Smoking Tobacco: Never Assessed Sex and Gender Information Value Date Recorded Sex Assigned at Not on file Gender Identity Not on file Sexual Orientation Not on file documented as of this encounter Discharge Disposition Disposition Code Departure Means Destination Auto Discharge documented in this encounter Plan of Treatment Not on file documented as of this encounter Visit Diagnoses Not on filedocumented in this encounter
--- OUTSIDE RECORDS SUMMARY | 2023-10-08 15:18 | XMS_ITS | Encounter Summary ---
Author Organization [facility] Address [facility] [place] [address] Care Team Providers Care Manager Meeting Name Role Phone Regina Sherwood APRN Primary Care Provider [phone] Encounter Details Date Type Department Care Team (Late st Contact Info) Description 06/13/2010 9:32 AM EDT - 06/13/2010 11:59 PM EDT Hospital Encounter Hematology [place] [address] CLINIC, DR WAN Norman, Sanket Pineda Jr., MD [facility] HEMATOLOGY/[place] [address] Discharge Disposition: Home Social History Tobacco Use [...] 06/12/2010 04/29/2018 documented as of this encounter Plan of Treatment Not on file documented as of this encounter Visit Diagnoses Not on filedocumented in this encounter Care Teams Manager Meeting Relationship Specialty Start Date End Date Regina Sherwood APRN PCP - General 03/28/10 02/13/18 documented as of this encounter
--- OUTSIDE RECORDS SUMMARY | 2023-10-08 15:18 | XMS_ITS | Referral Summary ---
Author Organization [facility] Address [address] [place] [address] Care Team Providers Care Order Processing Clerk Name Role Phone Teresa Trujillo SITE DAMAGE PREVENTION TECHNICIAN Primary Care Provider [phone] Social History Tobacco Use Types Packs/Day Years Used Date Smoking Tobacco: Never Assessed Sex and Gender Information Value Date Recorded Sex Assigned at Not on file Gender Identity Not on file Sexual Orientation Not on file Plan of Treatment Not on file Care Teams Order Processing Clerk Relationship Specialty Start Date End Date Teresa Trujillo, ELISSA [address] [place] [address] PCP - General 10/06/15
--- OUTSIDE RECORDS SUMMARY | 2023-10-08 15:18 | XMS_ITS | Encounter Summary ---
Author Organization [facility] Address [facility] [place] [address] Care Team Providers Care Card Processing Clerk Name Role Phone Regina Sherwood ESTIMATOR Primary Care Provider [phone] Encounter Details Date Type Department Care Team (Late st Contact Info) Description 04/10/2010 [place] [id number] Sanket Norman Jr., MD [facility] DR HEMATOLOGY/[place] [address] Social History Tobacco Use Types Packs/Day Years Used Date Smoking Tobacco: Never Assessed Sex and Gender Information Value Date Recorded Sex Assigned at Not on file Gender Identity Not on file Sexual Orientation Not on file documented as of this encounter Plan of Treatment Not on file documented as of this encounter Procedures Procedure Name Priority Date/Time Associated Diagnosis Comments FECAL OCCULT BLOOD, QUALITATIVE X3 Routine 04/10/2010 4:44 PM EST documented in this encounter Results * OCCULT BLOOD, STOOL (04/10/2010 4:44 PM [...] Jr., MD BODY FLUIDS AND STOOLS ORDERABLES Performing Organization Address City/State/[facility] Co de Phone Number [facility] documented in this encounter Visit Diagnoses Not on filedocumented in this encounter Care Teams Card Processing Clerk Relationship Specialty Start Date End Date Regina Sherwood APRN PCP - General 03/28/10 02/13/18 documented as of this encounter
--- OUTSIDE RECORDS SUMMARY | 2023-10-08 15:18 | XMS_ITS | Encounter Summary ---
Author Organization [facility] Address [address] [place] [address] Care Team Providers Care Nocturnist Physician Name Role Phone Mango Magana MD Primary Care Provider [phone] Encounter Details Date Type Department Care Team (Late st Contact Info) Description 11/27/2006 Results Only [facility] Non-Invasive Cardiology - [facility] [address] [place], [place] [id number] Regina Sherwood, JOSE F [address] [place] [address] Social History Tobacco Use Types Packs/Day Years Used Date Smoking Tobacco: Never Assessed Sex and Gender Information Value Date Recorded Sex Assigned at Not on file Gender Identity Not on file Sexual Orientation Not on file documented as of this encounter Plan of Treatment Not on file documented as of this encounter Procedures Procedure Name Priority Date/Time Associated Diagnosis Comments CYTOPATHOLOGY Routine 11/27/2006 0:00 EDT documented in this encounter Results * CYTOPATHOLOGY (11/27/2006 0:00 EDT) Pathology Report: CYTOPATHOLOGY REPORT Reports generated via electronic interface contain original data; however they are lacking the format of the original report. Caution should be taken when reading/interpreti ng unformatted reports. Name: ? LAUREN WATKINS ? Accession #: ? [id number] : ? 1960 (Age: 46) ??F ?Collect Date: ? 11/27/2006 Location: ? [facility] ? Receive Date: ? 11/29/2006 Provider: ?REGINA KOHLER Copy to: ? Specimen/Source: ?ThinPrep Pap Test, Endocervix, processed on Giferent ThinPrep Imaging System, with manual evaluation Last Menstrual Period: ? 11/01/06 Other: ? HPVA - HPV testing requested if ASC-US on the current ThinPrep Pap test. Additional clinical information: A0 ? SPECIMEN ADEQUACY ? Satisfactory for Evaluation - transformation zone component absent GENERAL CATEGORIZATION ? Negative for Intraepithelial Lesion or Malignancy ? Document reviewed and electronically signed by: ? LAKEISHA Murry(ASCP) ? Report Date: ??12/05/2006 12:46 End of Report MELI RAMIREZ 11/27/2006 11/29/2006 Regina KOHLER PATHOLOGY ORDERABLES [facility] [address] [place] [address] documented in this encounter Visit Diagnoses Not on filedocumented in this encounter Care Teams Nocturnist Physician Relationship Specialty Start Date End Date Mnago Magana MD [address] [place] [address] PCP - General 07/12/08 10/05/15 documented as of this encounter
--- OUTSIDE RECORDS SUMMARY | 2023-10-08 15:18 | XMS_ITS | Encounter Summary ---
[place] [address] Care Team Providers Care Him Specialist Name Role Phone RonneiMariam masonhryn [place] BOWERS Primary Care Provider [phone] Encounter Details Date Type Department Care Team (Late st Contact Info) Description 09/02/2018 10:00 AM EDT Tech Visit [place] [address] Erinn Alexander, JODIE Recurrent deep vein thrombosis (DVT) Social History [...] Procedure Name Priority Date/Time Associated Diagnosis Comments DUPLEX FOR DVT, LEG, UNILAT Routine 09/02/2018 9:40 AM EDT Recurrent deep vein thrombosis (DVT) documented in this encounter Results * Duplex for DVT, Leg, Unilat (09/02/2018 9:40 AM EDT) VB Text Report Department: Vascular Surgery Lab Patient: [id number] (LAUREN WATKINS) CPT: 34637 ICD10: I82.409;I82.541 Referring Physician: JESSICA SIMPSON ?? [...] AM EDT Jessica Simpson MD VASCULAR ORDERABLES [facility] documented in this encounter Visit Diagnoses Diagnosis Recurrent deep vein thrombosis (DVT) documented in this encounter Care Teams Him Specialist Relationship Specialty Start Date End Date Teresa Trujillo APRN [address] [place] [address] PCP - General Family Medicine 02/14/18 documented as of this encounter
--- OUTSIDE RECORDS SUMMARY | 2023-10-08 15:18 | XMS_ITS | Encounter Summary ---
Author Organization [facility] Address [address] [place] [address] Care Team Providers Care Frame Nailer Name Role Phone Unavailable Primary Care Provider Unavailabl e Encounter Details Date Type Department Care Team (Late st Contact Info) Description 07/07/2008 Orders Only [facility] Laboratory Services - [facility] ([facility] [address] [place] [address] [id number] Carlo Bullock MD [address] [place] [address] Social History Tobacco Use Types Packs/Day Years Used Date Smoking Tobacco: Never Assessed Sex and Gender Information Value Date Recorded Sex Assigned at Not on file Gender Identity Not on file Sexual Orientation Not on file documented as of this encounter Plan of Treatment Not on file documented as of this encounter Procedures Procedure Name Priority Date/Time Associated Diagnosis Comments SURGICAL PATHOLOGY Routine 07/07/2008 0:00 EDT documented in this encounter Results * SURGICAL PATHOLOGY (07/07/2008 0:00 EDT) Pathology Report: SURGICAL PATHOLOGY REPORT ? Reports generated via electronic interface contain original data; ? however they are lacking the format of the original report. ? Caution should be taken when reading/interpreti ng unformatted reports. ? Name: ? WATKINS, LAUREN ? Accession #: ? [id number] ? : ? 1960 (Age: 48) ??F ? Collect Date: ? 07/07/2008 ? Location: ? [facility] ? Receive Date: ? 07/08/2008 ? Provider: CARLO BULLOCK MD ? Copy to: JAKE UDAY SEED BUYER ? Final Pathologic Diagnosis: ? Colon, 25.0 cm, biopsy: ? - Hyperplastic polyp. ? Document reviewed and electronically signed by: ? Bev N. Kalof, MD ? Report ??Date: 07/12/2008 20:31 ? By the signature above, the attending physician certifies that he/she has ? personally conducted a gross and/or microscopic examination of the described ? specimens and rendered or confirmed the above diagnosis. ? Specimen(s) Received: ? 25 cm bx, less than 5 mm polyp ? Clinical History: ? Colonoscopy/EGD ??microcystic anemia past four unit tx, no gross blood loss, current DVT in addition to above -> found after anemia dx, needs chronic ? anticoag ? Gross Description: ? Received in Hollande's solution labelled Watkins, Lauren and 25 cm ? biopsy is a single 0.1 x 0.1 x 0.1 cm pink-simpson irregular soft tissue. ? Submitted in toto in a single cassette. ??(Raymond Garcia)/giannan ? End of Report ? MELI RAMIREZ 07/07/2008 07/08/2008 9:1 5 EDT Carlo Bullock MD PATHOLOGY ORDERABLES [facility] [address] [place] [address] documented in this encounter Visit Diagnoses Not on filedocumented in this encounter
--- OUTSIDE RECORDS SUMMARY | 2023-10-08 15:18 | XMS_ITS | Encounter Summary ---
Author Organization [facility] [place] [address] Care Team Providers Care Change Management Manager Name Role Phone Teresa Trujillo APRN Primary Care Provider [phone] Encounter Details Date Type Department Care Team (Latest Contact Info) Description 09/02/2018 10:17 AM EDT - 09/02/2018 11:59 PM EDT Hospital Encounter [place] [address] Microcytic anemia; Other acute pulmonary embolism with [...] Procedure Name Priority Date/Time Associated Diagnosis Comments LUPUS ANTICOAGULANT Routine 09/02/2018 1 0:32 AM EDT Other acute pulmonary embolism with acute cor pulmonale SILICA CLOTTING TIME Routine 09/02/2018 10:32 AM EDT Other acute pulmonary embolism with acute cor pulmonale DRVVT Routine 09/02/2018 10:32 AM EDT Other acute pulmonary embolism with acute cor pulmonale HEMOGRAM STAT 09/02/2018 10:32 AM EDT Microcytic anemia DIFFERENTIAL, AUTOMATED STAT 09/02/2018 10:32 AM EDT Microcytic anemia IRON AND TIBC STAT 09/02/2018 10:32 AM EDT Microcytic anemia CBC (WITH DIFF) STAT 09/02/2018 10:32 AM EDT Microcytic anemia FERRITIN STAT 09/02/2018 10:32 AM EDT Microcytic anemia documented in this encounter Results * Differential, Automated (09/02/2018 10:32 AM EDT) Neutrophil % 71.9 % [facility] Neutrophil Absolute 5.02 1.70 - 6.10 x10(3)/[facility] Lymph % 17.7 % [facility] Lymphocytes Abs 1.2 0.9 - 3.2 x10(3)/[facility] Monocyte % 7.9 % [facility] Monocyte Abs 0.6 0.3 - 0.9 x10(3)/[facility] Eos % 1.0 % [facility] Eosinophils Abs 0.1 0.0 - 0.4 x10(3)/[facility] Basophil % 1.1 % [facility] Baso Absolute 0.1 0.0 - 0.1 x10(3)/[facility] Immature Gran % 0.40 % [facility] Comment: Immature granulocytes(IG's)percentage and absolute count will include metamyelocytes, myelocytes, and promyelocytes. Blood smears from CBCs yielding IG's will be scanned manually for concordance. If this scan disagrees with the automated IG or if promyelocytes are noted, a manual differential will be performed. Immature Gran Absolute 0.03 0.00 - 0.04 x10(3)/[facility] LABOR[facility] Blood specimen (specimen) 09/02/2018 10:32 AM EDT 09/02/2018 10:56 AM EDT Narrative Resulting Agency Comment Spec In Lab Jessica Simpson MD HEMATOLOGY ORDERABLE S [facility] [place] [place] [address] * (ABNORMAL) Hemogram (09/02/2018 10:32 AM EDT) White Blood Cell 7.0 4.0 - 9.5 x10(3)/[facility] Red Blood Cell 5.09 4.00 - 5.21 x10(6)/[facility] Hemoglobin 13.7 11.7 - 15.5 gm/dL [facility] Hematocrit 43.9 35.7 - 45.8 % [facility] Mean Cell Volume 86.2 82.6 - 94.[address] [facility] Mean Cell Hemoglobin 26.9(L) 27.1 - 32.[address] [facility] Mean Cell Hemoglobin Concentration 31.2(L) 31.7 - 35.0 gm/dL [facility] Platelet 344 145 - 357 x10(3)/[facility] RDW Standard Deviation 47.3(H) 37.0 - 46.0 [facility] RDW coefficient of variation 14.7(H) 11.5 - 14.1 % [facility] Mean Platelet Volume 10.0 7.6 - 12.[address] [facility] NRBC% auto 0.0 % [facility] NRBC Absolute 0.000 0.000 - 0.000 x10(3)/[facility] Blood specimen (specimen) 09/02/2018 10:32 AM EDT 09/02/2018 10:56 AM EDT Narrative Resulting Agency Comment Spec In Lab Jessica Simpson MD HEMATOLOGY ORDERABLE S Performing Organization Address [facility] Co de Phone Number [facility] [place] [place] [address] * Silica Clotting Time (09/02/2018 10:32 AM EDT) Silica Clotting Time 1.11 <=1.[address] [facility] Comment: A result greater than 1.16 TR is consistent with the presence of lupus anticoagulant. Values of 1.16 to 1.24 in this assay are not definitively positive or negative for the presence of a lupus anticoagulant. The SCT ratio may be falsely elevated in patients on anticoagulants, especially heparins and direct oral anticoagulants. An abnormal test result in an anticoagulated patient must therefore be interpreted with caution, and repeat testing after discontinuing anticoagulation may be appropriate. Blood specimen (specimen) 09/02/2018 10:32 AM EDT 09/02/2018 10:56 AM EDT Narrative Resulting Agency Comment Spec In Lab Jessica Simpson MD HEMATOLOGY ORDERABLE S Performing Organization Address [facility] Co de Phone Number [facility] [place] [address] * dRVVT (09/02/2018 10:32 AM EDT) dRVVT 0.87 <=1.20 IU/mL [facility] Comment: A result greater than 1.20 TR is consistent with the presence of lupus anticoagulant. Values of 1.20 to 1.30 in this assay are not definitively positive or negative for the presence of a lupus anticoagulant. The DRVVT ratio may be falsely elevated in patients on anticoagulants, especially heparins and direct oral anticoagulants. An abnormal test result in an anticoagulated patient must therefore be interpreted with caution, and repeat testing after discontinuing anticoagulation may be appropriate. Blood specimen (specimen) 09/02/2018 10:32 AM EDT 09/02/2018 10:56 AM EDT Narrative Resulting Agency Comment Spec In Lab Jessica Simpson MD HEMATOLOGY ORDERABLE S [facility] [place] [place] [address] * (ABNORMAL) Iron and TIBC (09/02/2018 10:32 AM EDT) Iron 48 30 - 150 mcg/dL [facility] TIBC 271 250 - 450 mcg/dL [facility] Iron Saturation 18(L) 20 - 50 % [facility] Blood specimen (specimen) 09/02/2018 10:32 AM EDT 09/02/2018 10:56 AM EDT Narrative Resulting Agency Comment Spec In Lab Jessica Simpson MD CHEMISTRY ORDERABLES Performing Organization Address [facility] Co de Phone Number [facility] [place] [address] * (ABNORMAL) Ferritin (09/02/2018 10:32 AM EDT) Ferritin 22(L) 30 - 400 ng/mL [facility] Comment: Pediatric reference ranges not verified at [facility], interpret with caution. Reference ranges for females greater than 50 years of age approach values for men, i.e., 30-400 ng/mL. Blood specimen (specimen) 09/02/2018 10:32 AM EDT 09/02/2018 10:56 AM EDT Narrative Resulting Agency Comment Spec In Lab Jessica Simpson MD CHEMISTRY ORDERABLES Performing Organization Address [facility] Co de Phone Number [facility] [place] [address] documented in this encounter Visit Diagnoses Diagnosis Microcytic anemia Iron deficiency anemia, unspecified Other acute pulmonary embolism with acute cor pulmonale documented in this encounter Care Teams Change Management Manager Relationship Specialty Start Date End Date Teresa Trujillo APRN [address] [place] [address] PCP - General Family Medicine 02/14/18 documented as of this encounter
[2023-10-08 16:20] LABS: HCT 33.9 % (36.0-46.0); MCH 20.8 pg (27.0-33.0); MCHC 27.1 % (32.0-36.0); MCV 77 fL (80-95); MPV 10.8 fL (8.0-11.0); Platelet Count 626 10^3/uL (130-400); RBC 4.43 10^6/uL (3.93-5.22); RDW-SD 62.4 fL; WBC 6.84 10^3/uL (4.4-10.8)
[2023-10-08 17:01] LABS: RDW 23.4 % (11.7-14.6)
[2023-10-08 17:02] LABS: HGB 9.2 g/dL (11.2-15.7)
[2023-10-08 17:30] LABS: Ferritin 11 ng/mL (8-252); Folate 16.1 ng/mL (8.6-20.0)
[2023-10-08 17:36] LABS: Iron 15 ug/dL (50-170); Total Iron Binding Capacity 393 ug/dL (250-450)
== END 2023-10-08 15:17 | disposition home or self-care (01) ==
LOC: NCHCN 15:16
PROVIDERS: PCP Nurse Practitioner Family; Visit Provider Family Medicine
DX: D64.9 Anemia, unspecified (principal)
CPT/HCPCS: 85027; 82728; 82746; 83540; 83550

== ENCOUNTER 2023-11-05 13:39 | Outpatient (REF) | payer BC, SELFPAY ==
--- OUTSIDE RECORDS SUMMARY | 2023-11-05 13:47 | XMS_ITS | Clinical Summary ---
Author Organization [facility]ly [facility] Address [facility] [place] [address] Care Team Providers Care Commercial Hvac Technician Name Role Phone RonnieMariam masonyanet Callahan APRN Primary Care Provider [phone] [phone] Allergies Active Allergy Reactions Criticality Noted Date [...] Encounters Date Type Department Care Team Description 10/09/2023 Lab [place] [address] Momo Canales DO 09/24/2023 12:44 PM EDT - 09/24/2023 11:59 PM EDT Hospital [place] [address] Discharge Disposition: Home 09/24/2023 [place] [address] Johnnie Chau MD 09/23/2023 9:47 AM EDT - 09/23/2023 11:59 PM EDT Hospital [place] [address] Discharge Disposition: Home 09/23/2023 Telephone [place]ematology [place] [address] Indu Chauhan MD 09/23/2023 Interpretation Only [address] [address] Tracy Ye, ELISSA 09/23/2023 Interpretation Only [address] [address] Danie Albright MD 09/09/2023 Interpretation Only [address] [address] Leann Palencia APRN 09/09/2023 Interpretation Only [address] [address] Leann Palencia, ELISSA from Last [...] Priority Date/Time Associated Diagnosis Comments SURGICAL PATHOLOGY (REQ ENTRY) Routine 10/09/2023 2:51 PM EDT ANTIBODY SCREEN AGUSTINA Routine 09/23/2023 8:30 PM EDT TYPE AND SCREEN ([facility]) Routine 09/23/2023 8:30 PM EDT AB COMMENT [...] Recently Relevant to Health Maintenance Results * Surgical Pathology (Req Entry) (10/09/2023 2:51 PM EDT) Case Report Surgical Pathology Report ? Case: [id number] ? Authorizing Provider: ??Momo Canales, ??Collected: ? 10/09/2023 1451 ? DO ? Ordering Location: ? Laboratory ? Received: ?10/09/2023 2302 ? Pathologist: ? Arianna Caban MD ? Specimens: ?? A) - Stomach, Antrum, Antrum Biopsy (Also for H. Pylori) ? B) - Stomach, Biopsies - Ulcers ? 10/15/2023 12:01 PM [facility] Final Diagnosis A. Stomach, Antrum Biopsy (Also for H. Pylori): Gastric antral mucosa with focal chronic inflammation. No H. Pylori-like microorganisms are seen on immunostain. B. Stomach, Biopsies - Ulcers Biopsy: Gastric mucosa with ulceration. 10/15/2023 12:01 PM [facility] Additional Studies Task ID IHC/Special Stains Result B1-2 H pylori Negative 10/15/2023 12:01 PM [facility] Disclaimer(s) Formalin-fixed, paraffin-embedded tissue sections are studied using the polymer technique with appropriate positive and negative controls. These IHC studies provide the pathologist with adjunctive diagnostic information. Antibody specificity has been verified by testing antibodies on a series of in-house tissues with known immunohistochemical performance characteristics. The clinical interpretation of any antibody positive staining or its absence is evaluated within the context of clinical presentation, morphology, histopathological criteria and other diagnostic tests. 10/15/2023 12:01 PM [facility] Clinical Information ulcers in upper stomach 10/15/2023 12:01 PM [facility] Gross Description A. Stomach, Antrum, Antrum Biopsy (Also for H. Pylori). Labeled/Fixative: Antrum biopsy (also for H. pylori), formalin. Quantity/Size: Single, 0.2 cm. Tissue Description: Soft, simpson-pink tissue. Sections/Processing: Submitted in toto in 1 cassette labeled A1. B. Stomach, Biopsies - Ulcers. Labeled/Fixative: Biopsies-ulcers, formalin. Quantity/Size: Four, ranging from 0.1 to 0.3 cm. Tissue Description: Soft, simpson-pink tissues. Sections/Processing: Submitted in toto in 1 cassette labeled B1. 10/15/2023 12:01 PM EDT [facility] Result Note Routine 10/15/2023 12:01 PM EDT [facility] Tissue STOMACH STRUCTURE / Unknown 10/09/2023 2:51 PM EDT 10/09/2023 11:02 PM EDT Tissue specimen (specimen) STOMACH STRUCTURE / Unknown 10/09/2023 2:51 PM EDT 10/09/2023 11:02 PM EDT Momo Canales DO PATHOLOGY/CYT OLOGY ORDERABLES Performing Organization Address [facility]/ZIP Co de Phone Number [facility] [place] [address] * Antibody Screen AGUSTINA (09/23/2023 8:30 PM EDT) AB SCREEN INTERP Negative [facility] 09/23/2023 8:30 PM EDT 09/23/2023 8:[address] Lab BLOOD BANK LAB ORDER ARI Performing Organization Address [facility]/ZIP Co de Phone Number [facility] [place] [address] * Ab Comment (09/23/2023 8:30 PM EDT) Blood Bank Antibody Comment See Comments [facility] BLOOD BANK [facility]ORATORY Comment:INTERPRETATION: A re d [...] EDT Lab BLOOD BANK LAB ORDER ARI [facility] [place] [address] * Antibody identification (09/23/2023 8:30 PM EDT) [facility] Ab Identified Anti-Low-I ncidence [facility] 09/23/2023 8:30 PM EDT 09/23/2023 8:30 PM EDT Lab BLOOD BANK LAB ORDER ARI [facility] [place] [place] [address] * Type and screen ([facility]) (09/23/2023 8:30 PM EDT) [facility] ABORH Type O NEGATIVE [facility] Patient BB History Unneccessary [facility] Expires at [id number] on: 09-23-2023 [facility] Ab Screen Interp Negative [facility] 09/23/2023 8:30 PM EDT 09/23/2023 8:30 PM EDT Narrative [facility] - 09/23/2023 8:30 PM EDT This Type and Screen result is only valid at the [facility] Hospital Lab BLOOD BANK LAB ORDER ARI [facility] [place] [place] [address] * Direct antiglobulin test (09/23/2023 8:30 PM EDT) [facility] CECY Poly Negative [facility] 09/23/2023 8:30 PM EDT 09/23/2023 8:[address] Lab BLOOD BANK LAB ORDER ARI [facility] [place] [place] [address] * XR Chest One View (09/23/2023 5:49 PM EDT) PT CLASS O DH RAD ADMITDTTM [id number] RAD PT RAD INFO [id number]^Housto n^Tracy^T RAD EXAM DESC XCXR1^XR Chest 1 View^RIS RAD WORKSTATION ID [id number] RAD Anatomical Region Laterality Modality Chest N/A [...] assistant that requested your imaging first. ? Narrative [...] care assistant that requested your imaging first. Tracy Ye LAYER OFF IMG DX ORDERABLES * XR Chest PA & Lateral (Generic) (09/23/2023 11:33 AM EDT) PT CLASS E RAD ADMITDTTM [id number] RAD PT RAD INFO [id number]^Broadw ater^Danie^Polo k RAD EXAM DESC XCXR2^XR Chest 2 Views^RIS RAD WORKSTATION ID [id number] RAD Anatomical Region Laterality Modality Chest N/A [...] assistant that requested your imaging first. ? Narrative 09/23/2023 12:07 PM EDT EXAMINATION: XR [...] care assistant that requested your imaging first. Danie Albright MD IMG DX ORDERABLES * US Lower Extremity Duplex Right (09/09/2023 12:49 PM EDT) PT CLASS O RAD ADMITDTTM [id number] [facility] PT [facility] INFO [id number]^Young^ Leann RAD EXAM DESC ULOEXR^US Lower Ext Venous Duplex Right^RIS [facility] WORKSTATION ID [id number] [facility] Anatomical Region Laterality Modality Other 09/09/2023 [...] assistant that requested your imaging first. ? Narrative 09/09/2023 2:07 PM EDT EXAMINATION: US [...] care assistant that requested your imaging first. Leann Palencia APRN PACS IMAGES * XR Hip 2-3 Views Right (09/09/2023 12:28 PM EDT) PT CLASS O RAD ADMITDTTM [id number] [facility] PT RAD INFO [id number]^Young^ Leann RAD EXAM DESC XRHIPTVR^XR Hip 2-3 Views Right^RIS RAD WORKSTATION ID [id number] [facility] Anatomical Region Laterality Modality Hip Right Radiographic [...] assistant that requested your imaging first. ? Narrative 09/09/2023 1:10 PM EDT EXAMINATION: XR [...] care assistant that requested your imaging first. Leann Young LAYER OFF IMG DX ORDERABLES * Mammo Screening Cad Bilateral (07/03/2022 1:18 PM EDT) PT CLASS O RAD ADMITDTTM RAD PT RAD INFO [id number]^YO CHENG^LEANN RAD EXAM DESC MADDSC^SCREEN MAMMO BL [...] assistant that requested your imaging first. ? Narrative [...] care assistant that requested your imaging first. Leann Palencia APRN IMG MAMMO ORDERABLES * [...] Sanket Norman Jr., MD CHEMISTRY OR DERABLES KANNAN PENAIUM * OCCULT BLOOD, STOOL (04/10/2010 4:44 PM [...] FLUIDS AND STOOLS ORDERABLES Performing Organization Address City/State/[facility] Co de Phone Number KANNAN FUENTES from Last 3 Months or Most Recently Relevant to Health Maintenance Care Teams Commercial Hvac Technician Relationship Specialty Start Date End Date Teresa Trujillo APRN [address] [place] [address] PCP - General Family Medicine 02/14/18
--- OUTSIDE RECORDS SUMMARY | 2023-11-05 13:47 | XMS_ITS | Continuity of Care Document ---
Author Organization [place] - [facility] Address [address] [place] [address] Assessment No assessment recorded. Plan of Treatment Reminders Order Date Submit Date Provider Last Modified By Organization Details Last Modified Time Details Appointments Office Visit 2023 10:00A M Not available Not available Not available Follow Up 2023 10:00A M Not available Not available Not available Lab iron, serum - drawn in office. 1 tiger top and 1 lavender top tube drawn 2023 024 [facility] (Registration ), [address] [place] [address] [place], [address], 10/08/2023 17:39:32 TIBC (total iron-bind ing capacity) , serum 2023 024 [facility] (Registration ), [address] [place] [address] [place], [address], 10/11/2023 08:47:07 folate, serum 2023 024 [facility] (Registration ), [address] [place] [address] [place], [address], 10/11/2023 08:46:54 ferritin, serum or plasma 2023 024 [facility] (Registration ), [address] [place] [address] [place], [address], 10/11/2023 08:46:42 CBC 2023 024 [facility] (Registration ), [address] [place] [address] [place], [address], 10/08/2023 17:05:17 Referral None recorded. Procedures None recorded. Surgeries None recorded. Imaging None recorded. Medication Orders None recorded. Patient TargetsNo targets recorded. Patient InstructionsNo instructions recorded. Reason for Referral None Reported. Results Created Date Observation Date Name Description Value Unit Range Abnormal Flag Note LastModifiedBy Organization Detail LastModifiedTime 09/09/19 24 09/09/2023 XR, hip, unila teral , 2 or 3 view No observ ation record ed. [email or web address] [facility] [address] [place], [address], 09/11/2023 15:12:02 09/09/19 24 09/09/2023 US, duple x, venou s, lower extre mity, unila teral No observ ation record ed. [email or web address] [facility] [address] [place], [address], 09/11/2023 15:11:18 Result Notes None recorded. Problems Name Problem SNOMED Code Status Onset Date Resolution Date Notes Provider Name and Address Organization Details Recorded Time History of thromboe mbolism 566111556 Active 2011 Problem Code: Z86.718; Problem Code Type: ICD-10; [address], [place], [address] , [facility] 4 12:51:44 Inguinal hernia 062048915 Active 2011 Problem Code: K40.90; Problem Code Type: ICD-10; [address], [place], [address] , [facility] 4 12:52:37 Uterine leiomyom a 88871756 Active 2011 Problem Code: D25.9; Problem Code Type: ICD-10; [address], [place], [address], [facility] 4 12:52:31 Scoliosi s deformit y of spine 102332627 Active 201103/19/19 20 - Comments only - Aysha EGAN - reports the back pain has not been an issue recently . Problem Code: M41.9; Problem Code Type: ICD-10; [address], [place], [address], [facility] 4 12:51:56 Carpal tunnel syndrome of right wrist 44431738352 9108 Active 2011 Problem Code: G56.01; Problem Code Type: ICD-10; [address], [place], [address], [facility] 4 12:51:50 Obesity 848473420 Active 201312/29/19 20 - Comments only - Aysha EGAN - Lauren has been trying to reduce carbohyd rate intake. Problem Code: E66.9; Problem Code Type: ICD-10; [address], [place], [address], [facility] 4 12:52:01 Cramp in lower limb associat ed with sleep 26559645613 4104 Active 201412/29/19 20 - Comments only - Aysha EGAN - Improved with increase d hydratio n. Problem Code: G47.62; Problem Code Type: ICD-10; [address], [place], [address], [facility] 4 12:52:06 History of pulmonar y embolus 960440484 Active 2017 Problem Code: Z86.711; Problem Code Type: ICD-Jami; [address], [place], [address], [facility] 4 12:51:39 Long-ter m current use of anticoag ulant 985862418 Active 201707/06/19 21 - Comments only - Aysha EGAN - Continue Eliquis. No bleeding or bruising issues at this time. BMP for medicati on monitori ng. Problem Code: Z79.01; Problem Code Type: ICD-10; [address], [place], [address], [facility] 4 12:49:33 Pain in thoracic spine 499157269 Active 201806/23/19 23 - Comments only - Aysha EGAN - Patient states that back pain has not been an issue lately. Problem Code: M54.9; Problem Code Type: ICD-10; [address], [place], [address], [facility] 4 12:52:50 [facility] thromboc ythemia 441876782 Active 201812/29/19 20 - Comments only - Aysha EGAN - Normal platlet count 06/2019. Problem Code: D47.3; Problem Code Type: ICD-10; [address], [place], [address], [facility] 4 12:51:11 Iron deficien cy anemia 50718814 Active 2021 Problem Code: D50.9; Problem Code Type: ICD-10; [address], [place], [address], [facility] 4 12:50:58 Hyperlip idemia 94891063 Active 202206/23/19 23 - Comments only - Aysha EGAN - Lipids with today's bloodwor k. Not fasting. Patient did have cheerios this morning. 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 [address], [place], [address], [facility] 4 12:53:19 Pulmonar y embolism 37810468 Completed 201711/21/2022 Problem Code: I26.99; Problem Code Type: ICD-10; [address], [place], [address], [facility] 4 12:54:14 Blood chemistr y outside referenc e range 496632065 Active 2023 [address], [place], [address], [facility] 4 12:50:50 Pain in right lower limb 119845970 Active [address], [place], [address], [facility]. 4 09:37:35 Pain in right hip joint 82983119444 9102 Active [address], [place], [address], [facility]. 4 09:37:44 Anemia 435995118 Active [address], [place], [address], [facility] 4 11:52:15 Gastric ulcer 383277276 Active 2023 [address], [place], [address] [place] [address] 4 10:36:45 Problem Notes None recorded. Medical Equipment None Reported. Medications Name Sig Start Date Stop Date Status Note LastModified by Organization Details LastModified Time famotidin e 40 mg tablet Take 1 tablet by mouth every night as needed 06/22 completed Not Available Not Available Not Available pantopraz ole 40 mg tablet,de layed release TAKE 1 TABLET BY MOUTH ONCE DAILY 2023 active Not Available Not Available Not Avai lable erythromy radhika 5 mg/gram (0.5 %) eye [...] Updated DateTime 4 161.29 cm 40.8 kg/m2 037895. 61 g 97 [degF] 100 % 100 % 74 /min 138 mm[Hg] 86 mm[Hg] CHIOMA SPANN MA [facility] 4 11:33:49 Social History Question Answer Notes LastModified by Organizat ion Details LastModified Time Tobacco Smoking Status Never Smoker FLY PERRY, [facility] 11/05/2023 09:58:12 What Was The Date Of Your Most Recent Tobacco Screening? 11/05/2023 Information not available 11/05/2023 Do You Or Have You Ever Used Any Other Forms Of Tobacco Or Nicotine? No [email or web address] Information not available 11/05/2023 Sex: Female Functional Status None recorded. Mental Status None [...] mcg/0.3 mL 02/27/2023 completed Latoya Cates RN [facility], [facility] 02/28/2023 08:57:17 Influenza, split virus, quadrivalent, PF 02/27/2023 completed JIGNESH GUILLEN [facility] [address], [place], [address], [facility] 02/27/2023 19:38:22 Td (adult), 2 Lf tetanus toxoid, preservative free, adsorbed 06/22/2022 completed Not Available [facility] 01/04/2023 05:24:45 Tdap 07/16/2012 completed Not Available [facility] 05:24:45 Influenza, split virus, quadrivalent, PF 12/15/2021 completed Not Available [facility] 01/04/2023 05:24:45 Influenza, split virus, quadrivalent, PF 12/29/2019 completed Not Available [facility] 01/04/2023 05:24:45 Influenza, split virus, quadrivalent, PF 01/23/2021 completed Not Available [facility] 01/04/2023 05:24:45 zoster recombinant 07/05/2020 completed Not Available [facility] 01/04/2023 05:24:45 zoster recombinant 12/15/2021 completed Not Available [facility] 01/04/2023 05:24:45 COVID-19, mRNA, LNP-S, PF, 100 mcg/0.5mL dose or 50 mcg/0.25mL dose 03/16/2020 completed Not Available [facility] 01/05/20 05:24:46 COVID-19, mRNA, LNP-S, PF, 100 mcg/0.5mL dose or 50 mcg/0.25mL dose 04/13/2020 completed Not Available [facility] 01/05/20 05:24:46 COVID-19, mRNA, LNP-S, PF, 100 mcg/0.5mL dose or 50 mcg/0.25mL dose 01/23/2021 completed Not Available [facility] 01/05/20 05:24:46 Past Encounters Encounter ID Performer Location Encounter Start Date Encounter Closed Date Diagnosis/Indication Diagnosis SNOMED-CT Code Diagnosis ICD10 Code [id number] ELIN PRAKASH MD [address] [address] 10/08/2023 11:14:17 10/08/2023 12:09:57 Anemia 107779636 D64.9 Health Concerns Section Related Observation LastModified by Organization Detai ls LastModified Time None Recorded Concern Status LastModified by Organization Details LastModified Time None Recorded Payers Encounter Date Sequence Insurance Name Policy Number Policy Rocha Covered Member ID Rocha Member ID Guarantor Name 10/08/2023 1 [place] Lauren Paula [id number] Lauren Paula Notes Date Note Type Note Provider Name and Address Organization Details Recorded Time 10/08/2023 text/html HPI Notes: Faisal herrera here for hospital follow-up. Was at [facility], September 24. Went in because of symptoms of dyspnea exertion, slight lightheadedness. Patient states she had a hemoglobin of 6, received 3 units of packed red blood cells. She has a history of iron deficiency anemia, previous EGD showed duodenitis gastritis. She feels much improved since then. Was having some slight chest heaviness which is now gone. She is scheduled for an EGD tomorrow, is on Protonix, never had a GI symptoms at all describes, and record confirms, long history of iron deficiency anemia, it appears at times despite some oral replacement she is partially taking 325 mg daily of ferrous sulfate. Never had any dark stools, abdominal pain MD Skip [address], [place], [address], [facility]. 10/08/2023 22:01:45 OBGyn Episode No OBEpisode recorded.
--- OUTSIDE RECORDS SUMMARY | 2023-11-05 13:47 | XMS_ITS | Encounter Summary ---
Author Organization [place] [address] Care Team Providers Care Yield Analyst Name Role Phone Teresa Trujillo APRN Primary Care Provider [phone] Encounter Details Date Type Department Care Team (Late st Contact Info) Description 10/09/2023 [place] [id number] Momo Canales S, DO [address] [place] [address] Social History Tobacco Use Types Packs/Day Years [...] (REQ ENTRY) Routine 10/09/2023 2:51 PM EDT documented in this encounter Results * Surgical Pathology (Req Entry) (10/09/2023 2:51 PM EDT) Case Report Surgical Pathology Report ? Case: [id number] ? Authorizing Provider: ??Momo Canales, ??Collected: ? 10/09/2023 1451 ? DO ? Ordering Location: ? Laboratory ? Received: ?10/09/2023 2302 ? Pathologist: ? Arianna Caban MD ? Specimens: ?? A) - Stomach, Antrum, Antrum Biopsy (Also for H. Pylori) ? B) - Stomach, Biopsies - Ulcers ? 10/15/2023 12:01 PM EDT [facility] Final Diagnosis A. Stomach, Antrum Biopsy (Also for H. Pylori): Gastric antral mucosa with focal chronic inflammation. No H. Pylori-like microorganisms are seen on immunostain. B. Stomach, Biopsies - Ulcers Biopsy: Gastric mucosa with ulceration. 10/15/2023 12:01 PM EDT [facility] Additional Studies Task ID IHC/Special Stains Result B1-2 H pylori Negative 10/15/2023 12:01 PM EDT [facility] Disclaimer(s) Formalin-fixed, paraffin-embedded tissue sections are [...] and other diagnostic tests. 10/15/2023 12:01 PM EDT [facility] Clinical Information ulcers in upper stomach 10/15/2023 12:01 PM EDT [facility] Gross Description A. Stomach, Antrum, Antrum [...] cassette labeled B1. 10/15/2023 12:01 PM EDT [facility] Result Note Routine 10/15/2023 12:01 PM EDT [facility] Tissue STOMACH STRUCTURE / Unknown 10/09/2023 2:51 PM EDT 10/09/2023 11:02 PM EDT Tissue specimen (specimen) STOMACH STRUCTURE / Unknown 10/09/2023 2:51 PM EDT 10/09/2023 11:02 PM EDT Momo Canales DO PATHOLOGY/CYT OLOGY ORDERABLES [facility] [place] [address] documented in this encounter Visit Diagnoses Not on filedocumented in this encounter Care Teams Yield Analyst Relationship Specialty Start Date End Date Teresa Trujillo APRN [address] [place] [address] PCP - General Family Medicine 02/14/18 documented as of this encounter
--- OUTSIDE RECORDS SUMMARY | 2023-11-05 13:47 | XMS_ITS | Encounter Summary ---
Author Organization [facility] Address [facility] [place] [address] Care Team Providers Care Telepathist Name Role Phone Teresa Trujillo ELISSA Primary Care Provider [phone] Encounter Details Date Type Department Care Team (Late st Contact Info) Description 09/24/2023 [place] [id number] Johnnie Chau MD [facility] [place] [address] Social History Tobacco Use Types Packs/Day Years [...] 63 y.o. year old female admitted to [facility] for GI bleedon 09/23/23. Relevant Problems: GI [...] or epistaxis. Implicated Component Information: Unit Number(s): [id number] Unit ABO Type(s): O- Volume Transfused: 238 [...] given ondansetron, diphenhydramine, and famotidine. Reaction Assessment: https://www.cdc.gov/nhsn/pdfs/biovigilance/nx-ww-jgzvexnq-current.pdf CDC/NHSN Biovigilance Reaction Classification: Acute hemolytic transfusion reaction (AHTR) Case Definition: Possible Severity: Grade 1 (Non-Severe) Imputability: Probable [place] [facility] confirmed that this patient received the correct [...] on filedocumented in this encounter Care Teams Telepathist Relationship Specialty Start Date End Date Teresa Trujillo APRN [address] [place] [address] PCP - General Family Medicine 02/14/18 documented as of this encounter
--- OUTSIDE RECORDS SUMMARY | 2023-11-05 13:47 | XMS_ITS | Encounter Summary ---
Author Organization [facility] Address [facility] [place] [address] Care Team Providers Care Farm Crops Teacher Name Role Phone Teresa Trujillo APRN Primary Care Provider [phone] Encounter Details Date Type Department Care Team (Late st Contact Info) Description 09/23/2023 Interpretation Only [address] [address] Tracy Ye APRN [facility] [address] [place], [place] [address] Social History Tobacco Use Types Packs/Day Years [...] EDT) PT CLASS O DH RAD ADMITDTTM [id number] RAD PT RAD MD INFO [id number]^Housto n^Tracy^T RAD EXAM DESC XCXR1^XR Chest 1 View^RIS RAD WORKSTATION ID [id number] RAD Anatomical Region Laterality Modality Chest N/A [...] who have questions please contact the health livestock caretaker that requested your imaging first. ? Narrative [...] patients who have questions please contactthe health livestock caretaker that requested your imaging first. Tracy Ye APRN IMG DX ORDERABLES documented in this encounter Visit Diagnoses Not on filedocumented in this encounter Care Teams Farm Crops Teacher Relationship Specialty Start Date End Date Teresa Trujillo APRN [address] [place] [address] PCP - General Family Medicine 02/14/18 documented as of this encounter
--- OUTSIDE RECORDS SUMMARY | 2023-11-05 13:47 | XMS_ITS | Continuity of Care Document ---
Author Organization [place] - [facility], [facility] Address [address] [place] [address] Assessment Encounter Date Assessment Date Assessment LastModified by Organization Details LastModified Time 09/04/2023 09/04/2023 09/04/2023: Irma hendrickson is here today with new onset right leg pain accompanied by mild shortness of breath and light headedness. She is anticoagulated on eliquis 2.5 mg twice daily however DVT and PE should be considered. She will go to [facility] today for d-dimer. I have also order US of the right leg due to calf size discrepancy. If d-dimer is negative I don't think we need to move forward with chest CTA. On exam today she has significant pain with palpation over the right greater trochanter potentially representing bursitis. We agree to move forward with non-emergent x-ray of the right hip. [email or web address] Not available 09/04/2023 10:47:56 Plan of Treatment Reminders Order Date Submit Date Provider Last Modified By Organization Details Last Modified Time Details Appointments Office Visit 2023 10:00A M Not available Not available Not available Follow Up 2023 10:00A M Not available Not available Not available Lab CMP, serum or plasma 2023 024 [email or web address] [facility], [address] [facility], [place], [address], 09/24/2023 15:28:50 noninvasi ve colorecta l cancer DNA + occult blood screening , QL, stool 2023 024 [email or web address] [facility] (Cologuard Orders Only), [address], [address], [place], [address], 10/22/2023 08:26:41 D-dimer, quant, plasma 2023 [facility], [address] [place] [address], [address], 09/04/2023 17:23:51 Referral None recorded. Procedures None recorded. Surgeries None recorded. Imaging XR, hip, unilatera l, 2 or 3 view 2023 [facility] - Radiology, [address] [place] [address], [address], 09/09/2023 14:28:57 US, doppler, venous [address] - Radiology, [address] [place] [address], [address], 09/11/2023 08:33:17 Medication Orders None recorded. Patient TargetsNo targets recorded. Patient InstructionsNo instructions recorded. Reason for Referral None Reported. Results Created Date Observation Date Name Description Value Unit Range Abnormal Flag Note LastModifiedBy Organization Detail LastModifiedTime 09/09/1909/09/2023 XR, hip, unila teral , 2 or 3 view No observ ation record ed. [email or web address] [facility] [address] [place], [address], 09/11/2023 15:12:02 09/09/19 24 09/09/2023 US, duple x, venou s, lower extre mity, unila teral No observ ation record ed. [address] [facility] [address] [place], [address], 09/11/2023 15:11:18 Result Notes None recorded. Problems Name Problem SNOMED Code Status Onset Date Resolution Date Notes Provider Name and Address Organization Details Recorded Time History of thromboe mbolism 808919056 Active 2011 Problem Code: Z86.718; Problem Code Type: ICD-10; [place] [address], [address], [facility] 4 12:51:44 Inguinal hernia 549486468 Active 2011 Problem Code: K40.90; Problem Code Type: ICD-10; [address], [place], [address], [facility] 4 12:52:37 Uterine leiomyom a 34922556 Active 2011 Problem Code: D25.9; Problem Code Type: ICD-10; [address], [place], [address], [facility] 4 12:52:31 Scoliosi s deformit y of spine 524703575 Active 201103/19/19 20 - Comments only - Leann EGAN - reports the back pain has not been an issue recently . Problem Code: M41.9; Problem Code Type: ICD-10; [address], [place], [address], [facility] 4 12:51:56 Carpal tunnel syndrome of right wrist 94183630722 9108 Active 2011 Problem Code: G56.01; Problem Code Type: ICD-10; [address], [place], [address], [facility] 4 12:51:50 Obesity 828229865 Active 201312/29/19 20 - Comments only - Leann EGAN - Lauren has been trying to reduce carbohyd rate intake. Problem Code: E66.9; Problem Code Type: ICD-10; [address], [place], [address], [facility] 4 12:52:01 Cramp in lower limb associat ed with sleep 99428863751 4104 Active 201412/29/19 20 - Comments only - Leann VILLALOBOSP - Improved with increase d hydratio n. Problem Code: G47.62; Problem Code Type: ICD-10; [address], [place], [address], [facility] 4 12:52:06 History of pulmonar y embolus 536611673 Active 2017 Problem Code: Z86.711; Problem Code Type: ICD-10; [address], [place], [address], [facility] 4 12:51:39 Long-ter m current use of anticoag ulant 246635436 Active 201707/06/19 21 - Comments only - Leann EGAN - Continue Eliquis. No bleeding or bruising issues at this time. BMP for medicati on monitori ng. Problem Code: Z79.01; Problem Code Type: ICD-10; [address], [place], [address], [facility] 4 12:49:33 Pain in thoracic spine 458479504 Active 201806/23/19 23 - Comments only - Leann Palencia [employer] MANAGER - Patient states that back pain has not been an issue lately. Problem Code: M54.9; Problem Code Type: ICD-10; [address], [place], [address], [facility] 4 12:52:50 [facility] thromboc ythemia 754596036 Active 201812/29/19 20 - Comments only - Laenn EGAN - Normal platlet count 06/2019. Problem Code: D47.3; Problem Code Type: ICD-Jami; [address], [place], [address], [facility] 4 12:51:11 Iron deficien cy anemia 67162909 Active 2021 Problem Code: D50.9; Problem Code Type: ICD-10; [address], [place], [address], [facility] 4 12:50:58 Hyperlip idemia 61059556 Active 202206/23/19 23 - Comments only - Leann EGAN - Lipids with today's bloodwor k. Not fasting. Patient did have cheerios this morning. Problem Code: E78.5; Problem Code Type: ICD-10; [address], [place], [address], [facility] 4 12:52:22 Prediabe nanette 185238113 Active 2022 Problem Code: R73.03; Problem Code Type: ICD-10; [address], [place], [address], [facility] 4 12:52:11 Deep venous thrombos is 438504438 Completed 201111/21/2022 11/02/19 17 - Comments only - Teresa Trujillo APRN - monitor for recurren dipti. [address], [place], [address], [facility] 4 12:53:19 Pulmonar y embolism 31055879 Completed 201711/21/2022 Problem Code: I26.99; Problem Code Type: ICD-10; [address], [place], [address], [facility] 4 12:54:14 Blood chemistr y outside referenc e range 243151927 Active [address], [place], [address], [facility] 4 12:50:50 Pain in right lower limb 117006238 Active 2023 JIGNESH GUILLEN [address], [facility] [address] , [facility] 4 09:37:35 Pain in right hip joint 29037879845 9102 Active 2023 JIGNESH GUILLEN [address], [facility] [address] , [facility] 4 09:37:44 Anemia 710716531 Active 2023 ELIN PRAKASH MD [address], [facility] [address] , [facility] 4 11:52:15 Gastric ulcer 404513668 Active 2023 JIGNESH GUILLEN [address], [facility] [address] , [facility] 4 10:36:45 Problem Notes None recorded. Medical [...] Updated DateTime 4 161.29 cm 41 kg/m2 917914. 64 g 97.3 [degF] 99 % 99 % 60 /min 120 mm[Hg] 72 mm[Hg] Rafaela Chappell RN [facility]. 4 09:12:04 Social History Question Answer Notes LastModified by Organizat ion Details LastModified Time Tobacco Smoking Status Never Smoker MARISEL GALLEGO CMA null, [facility] 11/05/2023 09:58:12 What Was The Date Of Your Most Recent Tobacco Screening? 11/05/2023 [email or web address] Information not available 11/05/2023 Do You Or Have You Ever Used Any Other Forms Of Tobacco Or Nicotine? No [email or web address] Information not available 11/05/2023 Sex: Female Functional [...] mcg/0.3 mL 02/27/2023 completed Latoya Cates RN [facility], [facility] 02/28/2023 08:57:17 Influenza, split virus, quadrivalent, PF 02/27/2023 completed JIGNESH GUILLEN [address], [place], [address], [facility] 02/27/2023 19:38:22 Td (adult), 2 Lf tetanus toxoid, preservative free, adsorbed 06/22/2022 completed Not Available [facility] 01/04/2023 05:24:45 Tdap 07/16/2012 completed Not Available [facility] 05:24:45 Influenza, split virus, quadrivalent, PF 12/15/2021 completed Not Available [facility] 01/04/2023 05:24:45 Influenza, split virus, quadrivalent, PF 12/29/2019 completed Not Available [facility] 01/04/2023 05:24:45 Influenza, split virus, quadrivalent, PF 01/23/2021 completed Not Available [facility] 01/04/2023 05:24:45 zoster recombinant 07/05/2020 completed Not Available [facility] 01/04/2023 05:24:45 zoster recombinant 12/15/2021 completed Not Available [facility] 01/04/2023 05:24:45 COVID-19, mRNA, LNP-S, PF, 100 mcg/0.5mL dose or 50 mcg/0.25mL dose 03/16/2020 completed Not Available [facility] 01/05/20 05:24:46 COVID-19, mRNA, LNP-S, PF, 100 mcg/0.5mL dose or 50 mcg/0.25mL dose 04/13/2020 completed Not Available [facility] 01/05/20 05:24:46 COVID-19, mRNA, LNP-S, PF, 100 mcg/0.5mL dose or 50 mcg/0.25mL dose 01/23/2021 completed Not Available [facility] 01/05/20 05:24:46 Past Encounters Encounter ID Performer Location Encounter Start Date Encounter Closed Date Diagnosis/Indication Diagnosis SNOMED-CT Code Diagnosis ICD10 Code [id number] JIGNESH GUILLEN [address] [address] 09/04/2023 08:50:33 09/04/2023 10:51:41 Screening for malignant neoplasm of colon 046759341 Z12.11 Pain in ri ght lower limb 091400218 M79.604 Pain in ri ght hip joint 0334655041 73768 M25.551 Prediabetes 016908976 R7 3.03 Health Concerns Section Related Observation LastModified by Organization Detai ls LastModified Time None Recorded Concern Status LastModified by Organization Details LastModified Time None Recorded Payers Encounter Date Sequence Insurance Name Policy Number Policy Rocha Covered Member ID Rocha Member ID Guarantor Name 09/04/2023 1 [place] [employer] [place] Lauren Paula [id number] Lauren Paula Notes Date Note Type Note [...] norm and has some light headedness. LEANN PALENCIA, [employer] MA[employer]GER [address], [place], [address], [facility]. 09/04/2023 10:48:28 OBGyn Episode No OBEpisode recorded.
--- OUTSIDE RECORDS SUMMARY | 2023-11-05 13:47 | XMS_ITS | Encounter Summary ---
Author Organization [facility] Address [facility] [place] [address] Care Team Providers Care Vibration Technician Name Role Phone Teresa Trujillo APRN Primary Care Provider [phone] Encounter Details Date Type Department Care Team (Latest Contact Info) Description 09/23/2023 9:47 AM EDT - 09/23/2023 11:59 PM EDT [place] [id number] Discharge Disposition: Home Social History Tobacco Use [...] Associated Diagnoses Date /Time Type and screen ([facility]/CG/VALERIO) Blood Bank Routine 09/23/2023 8:30 PM EDT Type and Screen Validity Blood Bank Routine 09/23/2023 8:30 PM EDT Scheduled Orders Name Type Priority Associated Diagnoses Orde r Schedule Type and screen ([facility]/CGP/VALERIO) Blood Bank Routine One Time for 1 [...] 8:30 PM EDT) Ab Identified Anti-Low-I ncidence [facility] 09/23/2023 8:30 PM EDT 09/23/2023 8:30 PM EDT Lab BLOOD BANK LAB ORDER ARI [facility] [place] [address] * Antibody Screen AGUSTINA (09/23/2023 8:30 PM EDT) AB SCREEN INTERP Negative [facility] 09/23/2023 8:30 PM EDT 09/23/2023 8:30 PM EDT Lab BLOOD BANK LAB ORDER ARI [facility] [place] [address] * Direct antiglobulin test (09/23/2023 8:30 PM EDT) CECY Poly Negative [facility] 09/23/2023 8:30 PM EDT 09/23/2023 8:[address] Lab BLOOD BANK LAB ORDER ARI [facility] [place] [address] * Type and screen ([facility]/CGP/VALERIO) (09/23/2023 8:30 PM EDT) ABORH Type O NEGATIVE [facility] Patient BB History Unneccessary [facility] Expires at 1499 on: 09-23-2023 [facility] Ab Screen Interp Negative [facility] 09/23/2023 8:30 PM EDT 09/23/2023 8:30 PM EDT Narrative [facility] - 09/23/2023 8:30 PM EDT This Type and Screen result is only valid at the [facility] Hospital Dr Lab BLOOD BANK LAB ORDER ARI Performing Organization Address City/[facility]/ZIP Co de Phone Number [facility] [place] [address] documented in this encounter Visit Diagnoses Not on filedocumented in this encounter Care Teams Vibration Technician Relationship Specialty Start Date End Date Teresa Trujillo APRN [address] [place] [address] PCP - General Family Medicine 02/14/18 documented as of this encounter
--- OUTSIDE RECORDS SUMMARY | 2023-11-05 13:47 | XMS_ITS | Encounter Summary ---
Author Organization [facility] Address [facility] [place] [address] Care Team Providers Care Paint Brush Maker Name Role Phone RonnieMariam masonhryn [place] B[place]ERS Primary Care Provider [phone] Encounter Details Date Type Department Care Team (Late st Contact Info) Description 09/23/2023 Telephone Hematology [place] [address] Indu Chauhan MD [facility] DR HEMATOLOGY/[place] [address] Social History Tobacco Use Types Packs/Day Years Used Date Smoking Tobacco: Never Smokeless Tobacco: Never Sex and Gender Information Value Date Recorded Sex Assigned at Not on file Gender Identity Not on file Sexual Orientation Not on file documented as of this encounter Miscellaneous Notes * Telephone Encounter - Indu Chauhan MD - 09/23/2023 6:08 PM EDT Got a page from [employer] lab, on account of transfusion reaction on [...] on filedocumented in this encounter Care Teams Paint Brush Maker Relationship Specialty Start Date End Date Teresa Trujillo APRN [address] [place] [address] PCP - General Family Medicine 02/14/18 documented as of this encounter
--- OUTSIDE RECORDS SUMMARY | 2023-11-05 13:47 | XMS_ITS | Encounter Summary ---
Author Organization [facility] [place] [address] Care Team Providers Care Hand Shaper Name Role Phone Ronnie, Teresa Callahan APRN Primary Care Provider [phone] Encounter Details Date Type Department Care Team (Latest Contact Info) Description 09/24/2023 12:44 PM EDT - 09/24/2023 11:59 PM EDT [place] [phone] Discharge Disposition: Home Social History Tobacco Use [...] * Ab Comment (09/23/2023 8:30 PM EDT) [facility] Blood Bank Antibody Comment See Comments [facility] BLOOD BANK LABORATORY Comment:INTERPRETATION: A [...] Dr Lab BLOOD BANK LAB ORDER ARI [facility] [place] [address] documented in this encounter Visit Diagnoses Not on filedocumented in this encounter Care Teams Hand Shaper Relationship Specialty Start Date End Date Teresa Trujillo APRN [address] [place] [address] PCP - General Family Medicine 02/14/18 documented as of this encounter
--- OUTSIDE RECORDS SUMMARY | 2023-11-05 13:48 | XMS_ITS | Encounter Summary ---
Author Organization [facility] Address [address] [place] [address] Care Team Providers Care Shoelace Tipping Machine Operator Name Role Phone Mango Magana MD Primary Care Provider [phone] Encounter Details Date Type Department Care Team (Late st Contact Info) Description 11/27/2006 Results Only [facility] Non-Invasive Cardiology - [facility] [address] [place], [place] [address] Regina Sherwood, JOSE F [address] [place] [address] Social History Tobacco Use Types Packs/Day Years [...] ? LAUREN WATKINS ? Accession #: ? [id number] : ? 1960 (Age: 46) ??F ?Collect Date: ? 11/27/2006 Location: ? [facility] ? Receive Date: ? 11/29/2006 Provider: ?REGINA KOHLER Copy to: ? Specimen/Source: ?ThinPrep Pap Test, Endocervix, processed on [facility] ThinPrep Imaging System, with manual evaluation Last [...] Regina KOHLER PATHOLOGY ORDERABLES MELI RAMIREZ [address] [place] [address] documented in this encounter Visit Diagnoses Not on filedocumented in this encounter Care Teams Shoelace Tipping Machine Operator Relationship Specialty Start Date End Date Mango Magana MD [address] [place] [address] PCP - General 07/12/08 10/05/15 documented as of this encounter
--- OUTSIDE RECORDS SUMMARY | 2023-11-05 13:48 | XMS_ITS | Encounter Summary ---
Author Organization [facility] Address [address] [place] [address] Care Team Providers Care Automatic Data Processing Planner Name Role Phone Mango Magana MD Primary Care Provider [phone] Encounter Details Date Type Department Care Team (Late st Contact Info) Description 10/03/2015 Results Only [facility] [phone] Rocio Chapman MD Critical access hospital0 [facility] [address] [place], [place] [id number] Social History Tobacco Use Types Packs/Day Years [...] ? WATKINS LAUREN ? Accession #: ? [id number] ? : ? 1960 (Age: 55) ??F ? Collect Date: ? 10/03/2015 ? Location: ? [facility] ? Receive Date: ? 10/04/2015 ? Provider: ROCIO CHAPMAN MD Copy to: JOSELYN BROOKS CHORE WORKER ? Final Pathologic Diagnosis: A. DUODENUM, BIOPSY: [...] Holman 10/04/2015 11:04 AM End of Report [facility] 10/03/2015 10:1 6 EDT 10/04/2015 10:16 EDT Rocio Chapman MD PATHOLOGY ORDEROsmany SUAZO [facility] [address] [place] [address] documented in this encounter Visit Diagnoses Not on filedocumented in this encounter Care Teams Automatic Data Processing Planner Relationship Specialty Start Date End Date Mango Magana MD [address] [facility] [place] [address] PCP - General 07/12/08 10/05/15 documented as of this encounter
--- OUTSIDE RECORDS SUMMARY | 2023-11-05 13:48 | XMS_ITS | Encounter Summary ---
Author Organization [facility] Address [address] [place] [address] Care Team Providers Care Tooth Cutter Spur Name Role Phone Mango Magana MD Primary Care Provider [phone] Encounter Details Date Type Department Care Team (Late st Contact Info) Description 08/01/2010 12:19 EDT - 08/01/2010 12:20 EDT Hospital Encounter [address] [address] Regina Sherwood ARNP [address] [place] [address] Discharge Disposition: Home or Self Care Social [...] on filedocumented in this encounter Care Teams Tooth Cutter Spur Relationship Specialty Start Date End Date Mango Magana MD [address] [facility] [place] [address] PCP - General 07/12/08 10/05/15 documented as of this encounter
--- OUTSIDE RECORDS SUMMARY | 2023-11-05 13:48 | XMS_ITS | Encounter Summary ---
Author Organization [facility] [place] [address] Care Team Providers Care Singe Machine Operator Name Role Phone RonnieTeresa APRN Primary Care Provider [phone] Encounter Details Date Type Department Care Team (Late st Contact Info) Description 05/05/2018 Telephone [place]ology [place] [address] Isela Wise RN Social History [...] on filedocumented in this encounter Care Teams Singe Machine Operator Relationship Specialty Start Date End Date Teresa Trujillo APRN [address] [place] [address] PCP - General Family Medicine 02/14/18 documented as of this encounter
--- OUTSIDE RECORDS SUMMARY | 2023-11-05 13:48 | XMS_ITS | Encounter Summary ---
[place] [address] Care Team Providers Care Gas Check Pad Maker Name Role Phone Teresa Trujillo ELISSA Primary Care Provider [phone] Encounter Details Date Type Department Care Team (Late st Contact Info) Description 11/16/2021 Interpretation Only [address] [phone] Momo Griffiths MD [address] [place] [address] Social History Tobacco Use Types Packs/Day Years [...] DH RAD ADMITDTTM RAD PT RAD INFO [id number]^F INDROWAN^QUYNH PETERSON CHAD RAD EXAM DESC XCXR1^XR [...] who have questions please contact the health career services assistant that requested your imaging first. ? Electronically signed by: Ricardo Zapien MD, [facility] ([phone]), at 11/16/2021 2:38 PM Narrative 11/16/2021 2:38 [...] patients who have questions please contactthe health career services assistant that requested your imaging first. Electronically signed by: Ricardo Zapien MD, [facility]([phone]), at 11/16/2021 2:38 PM Momo Griffiths MD IMG DX ORDERABL ES documented in this encounter Visit Diagnoses Not on filedocumented in this encounter Care Teams Gas Check Pad Maker Relationship Specialty Start Date End Date Teresa Trujillo APRN [address] [place] [address] PCP - General Family Medicine 02/14/18 documented as of this encounter
--- OUTSIDE RECORDS SUMMARY | 2023-11-05 13:48 | XMS_ITS | Encounter Summary ---
Author Organization [facility] [place] [address] Care Team Providers Care Manager Resource Name Role Phone Teresa Trujillo ELISSA Primary Care Provider [phone] Encounter Details Date Type Department Care Team (Late st Contact Info) Description 11/16/2021 Interpretation Only [address] [phone] Momo Griffiths MD [address] [place] [address] Social History Tobacco Use Types Packs/Day Years [...] E RAD ADMITDTTM RAD PT RAD INFO [id number]^FINDL EY^MOMO CASANOVA RAD EXAM DESC CTTHAO^CT ANGIOGRAPHY [...] who have questions please contact the health animal care giver that requested your imaging first. ? Electronically signed by: Clary Smart MD, [facility] ([phone]), at 11/16/2021 4:45 PM Narrative 11/16/2021 4:45 [...] patients who have questions please contactthe health animal care giver that requested your imaging first. Electronically signed by: Clary Smart MD, [facility]([phone]), at 11/16/2021 4:45 PM Momo Griffiths MD IMG CT ORDERABL ES documented in this encounter Visit Diagnoses Not on filedocumented in this encounter Care Teams Manager Resource Relationship Specialty Start Date End Date Teresa Trujillo APRN [address] [place] [address] PCP - General Family Medicine 02/14/18 documented as of this encounter
--- OUTSIDE RECORDS SUMMARY | 2023-11-05 13:48 | XMS_ITS | Encounter Summary ---
Author Organization [facility] [place] [address] Care Team Providers Care Manager Video Name Role Phone Teresa Trujillo APRN Primary Care Provider [phone] Encounter Details Date Type Department Care Team (Late st Contact Info) Description 07/03/2022 Interpretation Only [address] [address] Leann Palencia APRN [address] [place] [address] Social History Tobacco Use Types Packs/Day Years [...] ADMITDTTM DH RAD PT RAD MD INFO [id number]^YOUNG^ LEANN DH RAD EXAM DESC MADDSCTO^BREAST SCREEN [...] worker that requested your imaging first. ? Narrative [...] social worker that requested your imaging first. Leann Palencia APRN IMG MAMMO ORDERABLES documented in this encounter Visit Diagnoses Not on filedocumented in this encounter Care Teams Manager Video Relationship Specialty Start Date End Date Teresa Trujillo APRN [address] [place] [address] PCP - General Family Medicine 02/14/18 documented as of this encounter
--- OUTSIDE RECORDS SUMMARY | 2023-11-05 13:48 | XMS_ITS | Encounter Summary ---
Author Organization [facility] Address [address] [place] [address] Care Team Providers Care Cloud Services Architect Name Role Phone Mango Magana MD Primary Care Provider [phone] Encounter Details Date Type Department Care Team (Late st Contact Info) Description 08/01/2010 Results Only [facility] Non-Invasive Cardiology - [facility] [address] [place], [place] [address] Regina Sherwood, JOSE F [address] [place] [address] Social History Tobacco Use Types Packs/Day Years [...] ? LAUREN WATKINS ? Accession #: ? [id number] ? : ? 1960 (Age: 50) ??F ?Collect Date: ? 08/01/2010 ? Location: ? [facility] ? Receive Date: ? 08/02/2010 ? Provider: ?REGINA KOHLER ? Copy to: ? Specimen/Source: ?Pap Test, Endocervix, ThinPrep Imaging System with ? manual evaluation ? Last Menstrual Period: ? 03/2010 ? Other: ? Additional clinical information: BLASTING ENTRYMAN clinical and treatment history: ? SPECIMEN ADEQUACY ? Satisfactory for Evaluation ? - transformation zone component present ? GENERAL CATEGORIZATION ? Negative for Intraepithelial Lesion or Malignancy ? Document reviewed and electronically signed by: ? Araceli Luttrell, CT(ASCP) ? Report Date: ??08/08/2010 14:06 ? End of Report ? [facility] 08/01/2010 08/02/2010 Regina KOHLER PATHOLOGY ORDERABLES Performing Organization Address City/State/[facility] Co de Phone Number [facility] [address] [place] [address] documented in this encounter Visit Diagnoses Not on filedocumented in this encounter Care Teams Cloud Services Architect Relationship Specialty Start Date End Date Mango Magana MD [address] [place] [address] PCP - General 07/12/08 10/05/15 documented as of this encounter
--- OUTSIDE RECORDS SUMMARY | 2023-11-05 13:48 | XMS_ITS | Encounter Summary ---
Author Organization [facility] Address [facility] [place] [address] Care Team Providers Care Entry Specialist Name Role Phone Teresa Trujillo ELISSA Primary Care Provider [phone] Encounter Details Date Type Department Care Team (Late st Contact Info) Description 09/05/2018 Telephone [place] [address] Marilyn Gutierrez, RN Social History [...] on filedocumented in this encounter Care Teams Entry Specialist Relationship Specialty Start Date End Date Teresa Trujillo, SNOWMAKER [address] [place] [address] PCP - General Family Medicine 02/14/18 documented as of this encounter
--- OUTSIDE RECORDS SUMMARY | 2023-11-05 13:48 | XMS_ITS | Encounter Summary ---
Author Organization [facility] [place] [address] Care Team Providers Care President Sales And Marketing Name Role Phone Teresa Trujillo APRN Primary Care Provider [phone] Encounter Details Date Type Department Care Team (Late st Contact Info) Description 11/16/2021 Interpretation Only [address] [id number] Momo Griffiths MD [address] [place] [address] Social History Tobacco Use Types Packs/Day Years [...] on filedocumented in this encounter Care Teams President Sales And Marketing Relationship Specialty Start Date End Date Teresa Trujillo APRN [address] [place] [address] PCP - General Family Medicine 02/14/18 documented as of this encounter
--- OUTSIDE RECORDS SUMMARY | 2023-11-05 13:48 | XMS_ITS | Encounter Summary ---
Author Organization [facility] Address [address] [place] [address] Care Team Providers Care Coremaking Supervisor Name Role Phone Teresa Trujillo ELISSA Primary Care Provider [phone] Encounter Details Date Type Department Care Team (Latest Contact Info) Description 03/18/2019 Lab Requisition [facility] Pathology & Laboratory Medicine - [facility] [place] [facility] [address] [place] [address] Aysha Palencia FNP [address] [facility] [address] [place] [address] Encounter for general adult medical [...] Risk types, PCR Negative Negative 03/26/2019 8:08 [facility] Comment:No E6 or E7 mRNA is detected from HPV types 16,18,31,33,35,39,45,51,52,56,58,59,66, and 68 by asbestos microscopist mediated amplification. Papanicolaou smear specimen (specimen) CERVIX UTERI STRUCTURE / Unknown 03/18/2019 9:00 EST 03/24/2019 13:03 EST Aysha Palencia ROLL FILLER MICROBIOLOGY - GENER AL ORDERABLES [facility] [address] [place] [address] * PAP TEST (03/18/2019 9:00 EST) Specimens A. Cervix and/or Endocervix, , ThinPrep Imaging System with Manual Evaluation 03/26/2019 8:08 [facility] Specimen Adequacy Satisfactory for Evaluation - transformation zone component present 03/26/2019 8:08 [facility] General Categorization Negative for intraepithelial lesion or malignancy 03/26/2019 8:08 [facility] Attestation By the signature below, the attending physician certifies that they have personally conducted a gross and/or microscopic examination of the described specimens and rendered or confirmed the above diagnosis. 03/26/2019 8:08 [facility] at 0808 Clinical History 200903/26/19 20 8:08 [facility] HPV The result for the Human Papillomavirus (HPV) Detection-High Risk Types is Negative. No E6 or E7 mRNA is detected from HPV types 16,18,31,33,35,39 ,45,51,52,56,58,5 9,66, and 68 by asbestos microscopist mediated amplification.Francesca ting was performed on specimen [id number] and was resulted on 03/26/2019 0747 EST by CANDICE, LAB INSTRUMENT RESULTS IN 03/26/2019 8:08 [facility] Scanned Images 03/26/2019 8:08 [facility] Papanicolaou smear specimen (specimen) CERVIX UTERI STRUCTURE / Unknown 03/18/2019 9:00 EST 03/18/2019 15:40 EST Aysha EGAN PATHOLOGY ORDERABLES [facility] [address] [place] [address] documented in this encounter Visit Diagnoses Diagnosis Encounter for general adult medical examination without abnormal findings Unspecified general medical examination Encounter for screening for malignant neoplasm of cervix Screening for malignant neoplasm of the cervix Encounter for gynecological examination (general) (routine) without abnormal findings documented in this encounter Care Teams Coremaking Supervisor Relationship Specialty Start Date End Date Teresa Trujillo APRN [address] [place] [address] PCP - General 10/06/15 documented as of this encounter
--- OUTSIDE RECORDS SUMMARY | 2023-11-05 13:48 | XMS_ITS | Encounter Summary ---
[place] [address] Care Team Providers Care Master Automotive Technician Name Role Phone RonnieMariam masonhryn [place] BOWERS Primary Care Provider [phone] Encounter Details Date Type Department Care Team (Late st Contact Info) Description 09/02/2018 10:00 AM EDT Tech [place] [address] Erinn Alexander, JODIE Recurrent deep vein thrombosis [...] Text Report Department: Vascular Surgery Lab Patient: [id number] (LAUREN WATKINS) CPT: 36545 ICD10: I82.409;I82.541 Referring Physician: JESSICA SIMPSON ?? [...] (DVT) documented in this encounter Care Teams Master Automotive Technician Relationship Specialty Start Date End Date Teresa Trujillo APRN [address] [place] [address] PCP - General Family Medicine 02/14/18 documented as of this encounter
--- OUTSIDE RECORDS SUMMARY | 2023-11-05 13:48 | XMS_ITS | Encounter Summary ---
Author Organization [facility] Address [facility] [place] [address] Care Team Providers Care Sales Recruiting Coordinator Name Role Phone Regina Sherwood ELISSA Primary Care Provider [phone] Reason for Visit * Reason Comments Follow-up Encounter Details Date Type Department Care Team (Late st Contact Info) Description 06/13/2010 9:32 AM EDT - 06/13/2010 11:59 PM EDT Hospital Encounter Hematology [place] [address] Sanket Norman Jr., MD [facility] HEMATOLOGY/[place] [address] Iron deficiency anemia Discharge Disposition: Home Social [...] unspecified documented in this encounter Care Teams Sales Recruiting Coordinator Relationship Specialty Start Date End Date Regina Sherwood APRN PCP - General 03/28/10 02/13/18 documented as of this encounter
--- OUTSIDE RECORDS SUMMARY | 2023-11-05 13:48 | XMS_ITS | Encounter Summary ---
Author Organization [facility] [place] [address] Care Team Providers Care Solutions Executive Cloud Sales Name Role Phone Teresa Trujillo ELISSA Primary Care Provider [phone] Encounter Details Date Type Department Care Team ([facility] st Contact Info) Description 09/23/2023 Interpretation Only [address] [address] Danie Albright MD [address] [place] [address] Social History Tobacco Use Types Packs/Day Years [...] (09/23/2023 11:33 AM EDT) PT CLASS E DH RAD ADMITDTTM [id number] RAD PT RAD INFO [id number]^Broadw ater^Danie^Polo k RAD EXAM DESC XCXR2^XR Chest 2 Views^RIS RAD WORKSTATION ID [id number] RAD Anatomical Region Laterality Modality Chest N/A [...] who have questions please contact the health manager critical care that requested your imaging first. ? [...] patients who have questions please contactthe health manager critical care that requested your imaging first. Danie Albright MD IMG DX ORDERABLES documented in this encounter Visit Diagnoses Not on filedocumented in this encounter Care Teams Solutions Executive Cloud Sales Relationship Specialty Start Date End Date Teresa Trujillo APRN [address] [place] [address] PCP - General Family Medicine 02/14/18 documented as of this encounter
--- OUTSIDE RECORDS SUMMARY | 2023-11-05 13:48 | XMS_ITS | Encounter Summary ---
Author Organization [facility] Address [facility] [place] [address] Care Team Providers Care Respiratory Supervisor Name Role Phone RonnieMariam masonyanet Callahan APRN Primary Care Provider [phone] Reason for Visit * Reason Comments Follow-up Encounter Details Date Type Department Care Team (Late st Contact Info) Description 09/02/2018 11:00 AM EDT Office Visit Hematology [place] [address] Jessica Simpson MD [facility] [address] HEMATOLOGY [place] [address] VTE (venous thromboembolism); Other iron deficiency anemia [...] were not included. [facility] [place] [address] THROMBOSIS FOLLOW-UP DATE OF VISIT 09/02/2018 Patient [...] in January 2018. She was sent to [facility] ED, but because the CT machine was broken. Subsequently she went to [facility] and wasdiagnosed with right sided pulmonary emboli [...] and was seen by Dr. Norman, our dramatic teacher in 2010. She received 2 units of [...] Bravo MD Verified: ??05/09/2018 ?Hematopathologist Performed at: ??-[facility] Dept. of Pathology, [place], [place] Ref. Range 04/29/2018 12:27 04/29/2018 12:27 [...] done a while ago. PLAN/RECOMMENDATIONS 1. Continue director public service anticoagulation with apixaban - continue apixaban 5 [...] anemia documented in this encounter Care Teams Respiratory Supervisor Relationship Specialty Start Date End Date Teresa Trujillo APRN [address] [place] [address] PCP - General Family Medicine 02/14/18 documented as of this encounter
--- OUTSIDE RECORDS SUMMARY | 2023-11-05 13:48 | XMS_ITS | Encounter Summary ---
Author Organization [facility] [place] [address] Care Team Providers Care Surtass Analyst Name Role Phone Teresa Trujillo APRN Primary Care Provider [phone] Encounter Details Date Type Department Care Team (Latest Contact Info) Description 09/02/2018 10:17 AM EDT - 09/02/2018 11:59 PM EDT Hospital Encounter Hematology [place] [address] Microcytic anemia; Other acute pulmonary embolism with [...] 10:32 AM EDT) Neutrophil % 71.9 % [facility] Neutrophil Absolute 5.02 1.70 - 6.10 x10(3)/[facility] Lymph % 17.7 % [facility] Lymphocytes Abs 1.2 0.9 - 3.2 x10(3)/[facility] Monocyte % 7.9 % [facility] Monocyte Abs 0.6 0.3 - 0.9 x10(3)/[facility] Eos % 1.0 % [facility] Eosinophils Abs 0.1 0.0 - 0.4 x10(3)/[facility] Basophil % 1.1 % [facility] Baso Absolute 0.1 0.0 - 0.1 x10(3)/[facility] Immature Gran % 0.40 % [facility] Comment: Immature granulocytes(IG's)percentage and absolute count will include metamyelocytes, myelocytes, and promyelocytes. Blood smears from CBCs yielding IG's will be scanned manually for concordance. If this scan disagrees with the automated IG or if promyelocytes are noted, a manual differential will be performed. Immature Gran Absolute 0.03 0.00 - 0.04 x10(3)/[facility] Blood specimen (specimen) 09/02/2018 10:32 AM EDT 09/02/2018 10:56 AM EDT Narrative Resulting Agency Comment Spec In Lab Jessica Simpson MD HEMATOLOGY ORDERABLE S [facility] [place] [address] * (ABNORMAL) Hemogram (09/02/2018 10:32 AM EDT) White Blood Cell 7.0 4.0 - 9.5 x10(3)/[facility] Red Blood Cell 5.09 4.00 - 5.21 x10(6)/[facility] Hemoglobin 13.7 11.7 - 15.5 gm/dL [facility] Hematocrit 43.9 35.7 - 45.8 % [facility] Mean Cell Volume 86.2 82.6 - 94.4 fL [facility] Mean Cell Hemoglobin 26.9(L) 27.1 - 32.0 pg [facility] Mean Cell Hemoglobin Concentration 31.2(L) 31.7 - 35.0 gm/dL [facility] Platelet 344 145 - 357 x10(3)/[facility] RDW Standard Deviation 47.3(H) 37.0 - 46.0 [facility] RDW coefficient of variation 14.7(H) 11.5 - 14.1 % [facility] Mean Platelet Volume 10.0 7.6 - 12.9 fL [facility] NRBC% auto 0.0 % [facility] NRBC Absolute 0.000 0.000 - 0.000 x10(3)/[facility] Blood specimen (specimen) 09/02/2018 10:32 AM EDT 09/02/2018 10:56 AM EDT Narrative Resulting Agency Comment Spec In Lab Jessica Simpson MD HEMATOLOGY ORDERABLE S Performing Organization Address [facility] Co de Phone Number [facility] [place] [address] * Silica Clotting Time (09/02/2018 10:32 AM EDT) Silica Clotting Time 1.11 <=1.16 ratio [facility] Comment: A result greater than [...] MD HEMATOLOGY ORDERABLE S Performing Organization Address [facility] Co de Phone Number [facility] [place] [address] * dRVVT (09/02/2018 10:32 AM EDT) dRVVT 0.87 <=1.20 IU/mL [facility] Comment: A result greater than [...] Lab Jessica Simpson MD HEMATOLOGY ORDERABLE S [facility] [place] [address] * (ABNORMAL) Iron and TIBC (09/02/2018 10:32 AM EDT) Iron 48 30 - 150 mcg/dL [facility] TIBC 271 250 - 450 mcg/dL [facility] Iron Saturation 18(L) 20 - 50 % [facility] Blood specimen (specimen) 09/02/2018 10:32 AM EDT 09/02/2018 10:56 AM EDT Narrative Resulting Agency Comment Spec In Lab Jessica Simpson MD CHEMISTRY ORDERABLES Performing Organization Address [facility] Co de Phone Number [facility] [place] [address] * (ABNORMAL) Ferritin (09/02/2018 10:32 AM EDT) Ferritin 22(L) 30 - 400 ng/mL [facility] Comment: Pediatric reference ranges not verified at [facility], interpret with caution. Reference ranges for females greater than 50 years of age approach values for men, i.e., 30-400 ng/mL. Blood specimen (specimen) 09/02/2018 10:32 AM EDT 09/02/2018 10:56 AM EDT Narrative Resulting Agency Comment Spec In Lab Jessica Simpson MD CHEMISTRY ORDERABLES Performing Organization Address [facility] Co de Phone Number [facility] [place] [address] documented in this encounter Visit Diagnoses Diagnosis Microcytic anemia Iron deficiency anemia, unspecified Other acute pulmonary embolism with acute cor pulmonale documented in this encounter Care Teams Surtass Analyst Relationship Specialty Start Date End Date Teresa Trujillo APRN [address] [place] [address] PCP - General Family Medicine 02/14/18 documented as of this encounter
--- OUTSIDE RECORDS SUMMARY | 2023-11-05 13:48 | XMS_ITS | Encounter Summary ---
Author Organization [facility] [place] [address] Care Team Providers Care Geospatial Analyst Name Role Phone RonnieTeresa APRN Primary Care Provider [phone] Encounter Details Date Type Department Care Team (Latest Contact Info) Description 11/16/2021 9:41 PM EDT - 11/16/2021 11:59 PM EDT [place] [address] Discharge Disposition: Home Social History Tobacco Use [...] (11/16/2021 10:35 PM EDT) Smear Review Report [id number] ? Location: [facility] The signing pathologist has (i) examined the relevant preparation(s) for the specimen(s) and (ii) rendered or confirmed the diagnosis(es). . ? Smear Review DIAGNOSIS PERIPHERAL BLOOD, SMEAR: 1. Microcytic, hypochromic anemia 2. Marked thrombocytosis Electronically signed by: ?Kemal Dubois MD Verified: ??11/17/2021 14:14 ??Hematopathologis t Performed at: ??-[facility] Dept. of Pathology, [place], [place] DISCUSSION The morphologic findings are nonspecific. [...] and anemia. No clinical context is provided. [facility] 11/16/2021 10:3 5 PM EDT Momo Griffiths MD HEMATOLOGY [place] [place] [place] [address] * Peripheral Smear Review (11/16/2021 2:20 PM EDT) Peripheral Smear Review See Comment [facility] Comment: When completed by the Pathologist, report [id number] will display under Hematopathology Reports. Blood Venous Draw / Unknown 11/16/2021 2:20 PM EDT 11/16/2021 9:27 PM EDT Narrative Resulting Agency Comment Spec In Lab Momo Griffiths MD HEMATOLOGY [facility] [place] [address] documented in this encounter Visit Diagnoses Not on filedocumented in this encounter Care Teams Geospatial Analyst Relationship Specialty Start Date End Date Teresa Trujillo APRN [address] [place] [address] PCP - General Family Medicine 02/14/18 documented as of this encounter
--- OUTSIDE RECORDS SUMMARY | 2023-11-05 13:48 | XMS_ITS | Encounter Summary ---
Author Organization [facility] Address [facility] [place] [address] Care Team Providers Care Pearl Fisherman Name Role Phone Regina Sherwood APRN Primary Care Provider [phone] Encounter Details Date Type Department Care Team (Late st Contact Info) Description 06/13/2010 9:32 AM EDT - 06/13/2010 11:59 PM EDT Hospital Encounter H[place]ology [place] [address] CLINIC, DR WAN Norman, Sanket Pineda Jr., MD [facility] HEMATOLOGY/[place] [address] Discharge Disposition: Home Social History Tobacco Use [...] on filedocumented in this encounter Care Teams Pearl Fisherman Relationship Specialty Start Date End Date Regina Sherwood APRN PCP - General 03/28/10 02/13/18 documented as of this encounter
--- OUTSIDE RECORDS SUMMARY | 2023-11-05 13:48 | XMS_ITS | Encounter Summary ---
Author Organization [facility] Address [address] [place] [address] Care Team Providers Care Private Duty Lpn Name Role Phone Mango Magana MD Primary Care Provider [phone] Encounter Details Date Type Department Care Team (Late st Contact Info) Description 04/15/2012 Results Only [facility] Laboratory Services - [facility] ([facility]) [address] [place], [place] [address] Rito Karimi FNP [address] [place] [address] Social History Tobacco Use Types [...] when reading/interpreti ng unformatted reports. Name: ? WATKINS LAUREN ? Accession #: ? [id number] : ? 1960 (Age: 51) ??F ?Collect Date: ? 04/15/2012 Location: ? [facility] ? Receive Date: ? 04/16/2012 Provider: ?RITO KARIMI ENTRANCE GUARD Copy to: ? Specimen/Source: ?Pap Test, Cervix/Endocervix, ThinPrep Imaging System with manual evaluation Last Menstrual Period: ? brigitte ? SPECIMEN ADEQUACY ? Satisfactory for Evaluation - transformation zone component present GENERAL CATEGORIZATION ? Negative for Intraepithelial Lesion or Malignancy ? Document reviewed and electronically signed by: ? LAKEISHA Foster(ASCP) ? Report Date: ??04/17/2012 16:25 End of Report [facility] 04/15/2012 04/16/2012 Rito Karimi ENTRANCE GUARD PATHOLOGY ORDERABLES Performing Organization Address City/State/[facility] Co de Phone Number [facility] [address] [place] [address] documented in this encounter Visit Diagnoses Not on filedocumented in this encounter Care Teams Private Duty Lpn Relationship Specialty Start Date End Date Mango Magana MD [address] [place] [address] PCP - General 07/12/08 10/05/15 documented as of this encounter
--- OUTSIDE RECORDS SUMMARY | 2023-11-05 13:48 | XMS_ITS | Encounter Summary ---
Author Organization [facility] [place] [address] Care Team Providers Care Shipping Associate Name Role Phone eTresa Trujillo APRN Primary Care Provider [phone] [phone] Encounter Details Date Type Department Care Team (Late st Contact Info) Description 07/03/2022 Interpretation Only [address] [address] Leann Palencia APRN [address] [place], [place] [id number] Social History Tobacco Use Types Packs/Day Years [...] ADMITDTTM DH RAD PT DH RAD INFO [id number]^YO CHENG^LEANN DH RAD EXAM DESC MADDSC^SCREEN MAMMO [...] who have questions please contact the health caretaker that requested your imaging first. ? Electronically signed by: Ricardo Zapien MD, [facility] ([phone]), at 07/03/2022 2:17 PM Narrative 07/03/2022 2:17 [...] patients who have questions please contactthe health caretaker that requested your imaging first. Electronically signed by: Ricardo Zapien MD, [facility]([phone]), at 07/03/2022 2:17 PM Leann Palencia APRN IMG MAMMO ORDERABLES documented in this encounter Visit Diagnoses Not on filedocumented in this encounter Care Teams Shipping Associate Relationship Specialty Start Date End Date Teresa Trujillo APRN [address] [place] [address] PCP - General Family Medicine 02/14/18 documented as of this encounter
--- OUTSIDE RECORDS SUMMARY | 2023-11-05 13:48 | XMS_ITS | Encounter Summary ---
Author Organization [facility] Address [facility] [place] [address] Care Team Providers Care Product Scientist Name Role Phone Teresa Trujillo APRN Primary Care Provider [phone] Encounter Details Date Type Department Care Team (Latest Contact Info) Description 04/29/2018 12:13 PM EST - 04/29/2018 11:59 PM EST Hospital Encounter Hematology [place] [address] Microcytic anemia; Other acute pulmonary embolism with [...] (04/29/2018 12:27 PM EST) Prothrombin Mutation Negative [facility] Prothrombin Mutation Interp RESULT: NEGATIVE for the Factor II 54218V>A variant in 3? untranslated region of the prothrombin gene INTERPRETATION: The negative finding indicates that this patient is not at increased risk of thrombosis resulting from a Factor II 39722X>A associated elevation of prothrombin. Negative results indicate the absence of the prothrombin 62684N>A variant ([id number] 13G>A, [id number]), but do not rule out the presence of other rare variants within the prothrombin gene or other causes of thromboembolic disease. Clinical correlation is recommended. METHODS: The region of interest in the Prothrombin gene (73769H>A) is interrogated using a TaqMan allelic discrimination [...] [facility] at [facility]. It has not been cleared or approved by the FDA. The laboratory is regulated under CLIA as qualified to perform high-complexity testing. This test is used for clinical purposes. It should not be regarded as investigational or for research. [facility] Comment: [VERIFIED DATE]05.08.18 Verified By:Elina HICKS, Meli Pnieda Pathologist (Electronic Signature) Blood specimen (specimen) Venous Draw / Unknown 04/29/2018 12:27 PM EST 04/30/2018 10:37 AM EST Narrative Resulting Agency Comment Spec In Lab Jessica Simpson MD MOLECULAR ORDERABLES Performing Organization Address [facility] Co de Phone Number [facility] [place] [address] * Protein S Activity (04/29/2018 12:27 PM EST) Protein S Act 135 64 - 149 % activity [facility] Blood specimen (specimen) Venous Draw / Unknown 04/29/2018 12:27 PM EST 04/29/2018 12:44 PM EST Narrative Resulting Agency Comment Spec In Lab Jessica Simpson MD HEMATOLOGY ORDERABLE S Performing Organization Address City/[facility] Co de Phone Number [facility] [place] [address] * Protein C activity (04/29/2018 12:27 PM EST) Protein C Activity 103 70 - 140 % [facility] Blood specimen (specimen) Venous Draw / Unknown 04/29/2018 12:27 PM EST 04/29/2018 12:44 PM EST Narrative Resulting Agency Comment Spec In Lab Jessica Simpson MD HEMATOLOGY ORDERABLE S Performing Organization Address City/[facility] Co de Phone Number [facility] [place] [address] * Antithrombin (04/29/2018 12:27 PM EST) Antithrombin III Assay 113 83 - 128 % [facility] Blood specimen (specimen) Venous Draw / Unknown 04/29/2018 12:27 PM EST 04/29/2018 12:44 PM EST Narrative Resulting Agency Comment Spec In Lab Jessica Simpson MD HEMATOLOGY ORDERABLE S Performing Organization Address City/[facility]/ZIP Co de Phone Number [facility] [place] [address] * APC resistance (04/29/2018 12:27 PM EST) [facility] Activated Protein C Resistance 2.63 >=2.17 [facility] Blood specimen (specimen) Venous Draw / Unknown 04/29/2018 12:27 PM EST 04/29/2018 12:44 PM EST Narrative Resulting Agency Comment Spec In Lab Jessica Simpson MD HEMATOLOGY ORDERABLE S Performing Organization Address City/[facility]/ZIP Co de Phone Number [facility] [place] [address] * Scan, Peripheral Blood (04/29/2018 12:27 PM EST) [facility] Plat estimate Increased [facility] RBC Morphology Abnormal [facility] Microcyte 1-5 /HPF [facility] Hypochromia Slight [facility] Ovalocytes 1-5 /HPF [facility] Blood specimen (specimen) 04/29/2018 12:27 PM EST 04/29/2018 12:44 PM EST Narrative Resulting Agency Comment Spec In Lab Jessica Simpson MD HEMATOLOGY ORDERABLE S Performing Organization Address City/[facility]/ZIP Co de Phone Number [facility] [place] [address] * Beta-2 glycoprotein antibodies (04/29/2018 12:27 PM EST) [facility] Beta 2 Glycoprotein, IgG <9.4 <=20.0 unit(s) [facility] Beta 2 Glycoprotein, IgM <9.4 <=20.0 unit(s) [facility] B2GPI Interp See Thrombosis Screen Report [id number] Hematopatholo gy Reports. [facility] Blood specimen (specimen) 04/29/2018 12:27 PM EST 04/30/2018 7:16 AM EST Narrative Resulting Agency Comment Spec In Lab Jessica Simpson MD IMMUNOLOGY ORDERABLE S Performing Organization Address [facility] Co de Phone Number [facility] [place] [address] * Homocysteine Total, Plasma (04/29/2018 12:27 PM EST) Homocystine 10 <=15 mcmol/L [facility] Blood specimen (specimen) 04/29/2018 12:27 PM EST 04/29/2018 12:44 PM EST Narrative Resulting Agency Comment Spec In Lab Jessica Simpson MD CHEMISTRY ORDERABLES Performing Organization Address [facility] Phone Number [facility] [place] [address] * Cardiolipin Antibody Screen (04/29/2018 12:27 PM EST) Cardiolipin Antibody IgG <9.4 <=14.9 GPL unit(s) [facility] Comment: Ranges ?? GPL ------ ?? --- Negative ?? <=14.9 Indeterminate ??15.0 - 20.0 Low/Medium Positive 20.1 - 80.0 High Positive ??>80.0 Cardiolipin Antibody IgM <9.4 <=12.5 MPL unit(s) [facility] Comment: Ranges ?? MPL ------ ?? --- Negative ?? <=12.5 Indeterminate ??12.6 - 20.0 Low/Medium Positive 20.1 - 80.0 High Positive ??>80.0 Blood specimen (specimen) 04/29/2018 12:27 PM EST 04/30/2018 7:16 AM EST Narrative Resulting Agency Comment Spec In Lab Jessica Simpson MD IMMUNOLOGY ORDERABLE S Performing Organization Address [facility]/ZIP Co de Phone Number [facility] [place] [address] * THS Report (04/29/2018 12:27 PM EST) THS Report See Comment [facility] Comment:See Thrombosis Scree n Report [id number] under Hematopathology Reports. Blood specimen (specimen) 04/29/2018 12:27 PM EST 04/29/2018 12:44 PM EST Narrative Resulting Agency Comment Spec In Lab Jessica Simpson MD HEMATOLOGY ORDERABLE S [facility] [place] [address] * (ABNORMAL) Plat (04/29/2018 12:27 PM EST) Platelet 400(H) 145 - 357 x10(3)/mc L [facility] Immature Plt % 1.9 0.0 - 7.4 % [facility] Comment: Limitation of the Immature Platelet Fraction (IPF)-May be less reliable when the platelet count is less than 55q113/uL due to statistical imprecision. The IPF value [...] in a decreased state of production. References: [employer] The Clinical Value of the Immature Platelet Fraction (IPF) in Cell Recovery Document Number [id number] 07/2010 [employer] The Role of the Immature Platelet Fraction (IPF) in the Differential Diagnosis of Thrombocytopenia, Document [id number] V05 P007/08 Blood specimen (specimen) 04/29/2018 12:27 PM EST 04/29/2018 12:44 PM EST Narrative Resulting Agency Comment Spec In Lab Jessica Simpson MD HEMATOLOGY ORDERABLE S Performing Organization Address [facility] Co de Phone Number [facility] [place] [address] * TT (04/29/2018 12:27 PM EST) Thrombin Time 14 10 - 17 sec [facility] Comment: A prolongation in the [...] MD HEMATOLOGY ORDERABLE S Performing Organization Address [facility] Co de Phone Number [facility] [address] * (ABNORMAL) FIBR (04/29/2018 12:27 PM EST) Fibrinogen 462(H) 200 - 393 mg/dL [facility] Comment: A fibrinogen level >100 mg/dL is adequate for hemostasis in most patients without underlying bleeding disorders. Blood specimen (specimen) 04/29/2018 12:27 PM EST 04/29/2018 12:44 PM EST Narrative Resulting Agency Comment Spec In Lab Jessica Simpson MD HEMATOLOGY ORDERABLE S Performing Organization Address [facility] Co de Phone Number [facility] [place] [address] * (ABNORMAL) PTT (04/29/2018 12:27 PM EST) Partial Thromboplastin Time 40(H) 25 - 37 sec [facility] Comment: The PTT is NOT appropriate for heparin monitoring. Use the Anti-Xa level for heparin monitoring (HEP UFH) or LMWH monitoring (HEP LMW). A PTT less than 37 seconds generally indicates adequate hemostasis. Blood specimen (specimen) 04/29/2018 12:27 PM EST 04/29/2018 12:44 PM EST Narrative Resulting Agency Comment Spec In Lab Jessica Simpson MD HEMATOLOGY ORDERABLE S Performing Organization Address [facility] de Phone Number [facility] [place] [address] * (ABNORMAL) PT (04/29/2018 12:27 PM EST) Prothrombin Time 13.9(H) 9.4 - 12.5 sec [facility] International Normalization Ratio 1.2 [facility] Comment: An INR <2.0 indicates [...] MD HEMATOLOGY ORDERABLE S Performing Organization Address [facility] de Phone Number [facility] [address] * Differential, Automated (04/29/2018 12:27 PM EST) Neutrophil % 71.1 % [facility] Neutrophil Absolute 4.82 1.70 - 6.10 x10(3)/[facility] Lymph % 17.0 % [facility] Lymphocytes Abs 1.2 0.9 - 3.2 x10(3)/[facility] Monocyte % 8.9 % [facility] Monocyte Abs 0.6 0.3 - 0.9 x10(3)/[facility] Eos % 1.8 % [facility] Eosinophils Abs 0.1 0.0 - 0.4 x10(3)/[facility] Basophil % 0.9 % [facility] Baso Absolute 0.1 0.0 - 0.1 x10(3)/[facility] Immature Gran % 0.30 % [facility] Comment: Immature granulocytes(IG's)percentage and absolute count will include metamyelocytes, myelocytes, and promyelocytes. Blood smears from CBCs yielding IG's will be scanned manually for concordance. If this scan disagrees with the automated IG or if promyelocytes are noted, a manual differential will be performed. Immature Gran Absolute 0.02 0.00 - 0.04 x10(3)/[facility] Blood specimen (specimen) 04/29/2018 12:27 PM EST 04/29/2018 12:44 PM EST Narrative Resulting Agency Comment Spec In Lab Jessica Simpson MD HEMATOLOGY ORDERABLE S Performing Organization Address City/State/[facility] Co de Phone Number [facility] [place] [address] * (ABNORMAL) Hemogram (04/29/2018 12:27 PM EST) White Blood Cell 6.8 4.0 - 9.5 x10(3)/mc L [facility] Red Blood Cell 5.18 4.00 - 5.21 x10(6)/mc L [facility] Hemoglobin 11.4(L) 11.7 - 15.5 gm/dL [facility] Hematocrit 41.0 35.7 - 45.8 % [facility] Mean Cell Volume 79.2(L) 82.6 - 94.4 fL [facility] Mean Cell Hemoglobin 22.0(L) 27.1 - 32.0 pg [facility] Mean Cell Hemoglobin Concentration 27.8(L) 31.7 - 35.0 gm/dL [facility] Platelet 400(H) 145 - 357 x10(3)/mc L [facility] RDW Standard Deviation 67.2(H) 37.0 - 46.0 fL [facility] RDW coefficient of variation 23.7(H) 11.5 - 14.1 % [facility] Mean Platelet Volume 10.3 7.6 - 12.9 fL [facility] NRBC% auto 0.0 % [facility] NRBC Absolute 0.000 0.000 - 0.000 x10(3)/mc L [facility] Blood specimen (specimen) 04/29/2018 12:27 PM EST 04/29/2018 12:44 PM EST Narrative Resulting Agency Comment Spec In Lab Jessica Simpson MD HEMATOLOGY ORDERABLE S Performing Organization Address [facility] Co de Phone Number [facility] [place] [address] * (ABNORMAL) Ferritin (04/29/2018 12:27 PM EST) Ferritin 23(L) 30 - 400 ng/mL [facility] Comment: Pediatric reference ranges not verified at [facility], interpret with caution. Reference ranges for females greater than 50 years of age approach values for men, i.e., 30-400 ng/mL. Blood specimen (specimen) 04/29/2018 12:27 PM EST 04/29/2018 12:44 PM EST Narrative Resulting Agency Comment Spec In Lab Jessica Simpson MD CHEMISTRY ORDERABLES Performing Organization Address City/[facility] Co de Phone Number [facility] [place] [address] * (ABNORMAL) Iron and TIBC (04/29/2018 12:27 PM EST) Iron 23(L) 30 - 150 mcg/dL [facility] TIBC 284 250 - 450 mcg/dL [facility] Iron Saturation 8(L) 20 - 50 % [facility] Blood specimen (specimen) 04/29/2018 12:27 PM EST 04/29/2018 12:44 PM EST Narrative Resulting Agency Comment Spec In Lab Jessica Simpson MD CHEMISTRY ORDERABLES Performing Organization Address [facility] de Phone Number [facility] [place] [address] * Reticulocyte Count (04/29/2018 12:27 PM EST) Reticulocyte % 1.0 0.7 - 2.5 % [facility] Retic Abs # 0.050 0.020 - 0.110 x10(6)/mcL [facility] Immature Retic% 8.8 0.5 - 13.8 % [facility] Reticulated Hgb 30.7 29.8 - 39.4 pg [facility] Blood specimen (specimen) 04/29/2018 12:27 PM EST 04/29/2018 12:44 PM EST Narrative Resulting Agency Comment Spec In Lab Jessica Simpson MD HEMATOLOGY ORDERABLE S Performing Organization Address [facility] de Phone Number [facility] [place] [address] * Peripheral Smear Review (04/29/2018 12:27 PM EST) Peripheral Smear Review See Comment [facility] Comment: When completed by the Pathologist, report [id number] will display under Hematopathology Reports. Blood specimen (specimen) 04/29/2018 12:27 PM EST 04/29/2018 12:44 PM EST Narrative Resulting Agency Comment Spec In Lab Jessica Simpson MD HEMATOLOGY ORDERABLE S Performing Organization Address [facility] Co de Phone Number [facility] [place] [address] * Thrombosis Screen Report (04/29/2018 12:16 PM EST) Thrombosis Screen Report [id number] ? Location: The signing pathologist has (i) examined the relevant preparation(s) for the specimen(s) and (ii) rendered or confirmed the diagnosis(es). . ? Thrombosis Screen DIAGNOSIS - No evidence for the presence of common hereditary/acquire d hematologic ??risk factors associated with unexplained venous or arterial ??thromboembolism (see Discussion). Electronically signed by: ??Lawrence HICKS, Juanita Cobb Verified: ??05/09/2018 ?Hematopathologis t Performed at: ??-[facility] Dept. of Pathology, [place], [place] ADDITIONAL STUDIES TEST ?(REFERENCE RANGE) ?RESULT [...] antibodies ?(IgM </= 12.5 MPL) ?<9.4 MPL Fyeo-1-uqfpeihzmfd n-1 antibodies ??(IgG </= 20 units) ?IgG <9.4 units Wuus-2-yaliooetwim n-1 antibodies ??(IgM </= 20 units) ?IgM <9.4 units Homocysteine, random, plasma ?(</=15 umol/L) ?10 umol/L Factor V Leiden Mutation ?(normal) ?Not performed Prothrombin (86227 G->A) mutation (normal) ?Negative * Functional assay [...] hours. Note that tests for anticardiolipin and qnvt-bwud-9-GP1 antibodies are accurate in the presence of [...] Maternal grandmother has history of recurrent DVT. [facility] 04/29/2018 12:1 6 PM EST Jessica Simpson MD PATHOLOGY/CYTOLOGY Abhinav MADISON [facility] [place] [address] * Smear Review Report (04/29/2018 12:16 PM EST) Smear Review Report [id number] ? Location: 3K The signing pathologist has (i) examined the relevant preparation(s) for the specimen(s) and (ii) rendered or confirmed the diagnosis(es). . ? Smear Review DIAGNOSIS PERIPHERAL BLOOD, SMEAR: ?? 1. ??Mild microcytic, hypochromic anemia ?? 2. ??Thrombocytosis Electronically signed by: ??Kemal Dubois MD Verified: ??04/29/2018 ?Hematopathologist Performed at: ??-[facility] Dept. of Pathology, [place], [place] DISCUSSION The findings are comaptible with the reported history of iron deficiency. ADDITIONAL STUDIES WBC ??6.58j919/uL, RBC 5.18x10 6/uL, HGB 11.4g/dL, HCT 41%, [...] history is significant for severe iron deficiency. [facility] 04/29/2018 12:1 6 PM EST Jessica Simpson MD HEMATOLOGY ORDERABLE S [facility] [place] [address] documented in this encounter Visit Diagnoses Diagnosis Microcytic anemia Iron deficiency anemia, unspecified Other acute pulmonary embolism with acute cor pulmonale documented in this encounter Care Teams Product Scientist Relationship Specialty Start Date End Date Teresa Trujillo APRN [address] [place] [address] PCP - General Family Medicine 02/14/18 documented as of this encounter
--- OUTSIDE RECORDS SUMMARY | 2023-11-05 13:48 | XMS_ITS | Encounter Summary ---
Author Organization [facility] [place] [address] Care Team Providers Care Home Child Care Provider Name Role Phone Teresa Trujillo APRN Primary Care Provider [phone] Encounter Details Date Type Department Care Team (Late st Contact Info) Description 09/09/2023 Interpretation Only [address] [address] Aysha Palencia APRN [address] [place], [place] [address] Social History Tobacco Use Types Packs/Day Years [...] EDT) PT CLASS O DH RAD ADMITDTTM [id number] RAD PT RAD MD INFO [id number]^Young^ Aysha RAD EXAM DESC XRHIPTVR^XR Hip 2-3 [...] who have questions please contact the health respiratory care program director that requested your imaging first. ? Narrative [...] patients who have questions please contactthe health respiratory care program director that requested your imaging first. Electronically signed by: Ricardo Zapien [facility]([phone]), at 09/09/2023 1:10 PM Aysha Palencia APRN IMG DX ORDERABLES documented in this encounter Visit Diagnoses Not on filedocumented in this encounter Care Teams Home Child Care Provider Relationship Specialty Start Date End Date Teresa Trujillo APRN [address] [place] [address] PCP - General Family Medicine 02/14/18 documented as of this encounter
--- OUTSIDE RECORDS SUMMARY | 2023-11-05 13:48 | XMS_ITS | Encounter Summary ---
Author Organization [facility] Address [facility] [place] [address] Care Team Providers Care Supervisor Drawing Name Role Phone Regina Sherwood APPRAISAL SPECIALIST Primary Care Provider [phone] Encounter Details Date Type Department Care Team (Late st Contact Info) Description 04/10/2010 [place] [id number] Sanket Norman Jr., MD [facility] [address] HEMATOLOGY/[place] [address] Social History Tobacco Use Types [...] FLUIDS AND STOOLS ORDERABLES Performing Organization Address City/State/[facility] Co de Phone Number [facility] documented in this encounter Visit Diagnoses Not on filedocumented in this encounter Care Teams Supervisor Drawing Relationship Specialty Start Date End Date Regina Sherwood APRN PCP - General 03/28/10 02/13/18 documented as of this encounter
--- OUTSIDE RECORDS SUMMARY | 2023-11-05 13:48 | XMS_ITS | Encounter Summary ---
Author Organization [facility] Address [facility] [place] [address] Care Team Providers Care Chief Estimator Name Role Phone Teresa Trujillo APRN Primary Care Provider [phone] Reason for Visit * Reason Comments Advice Only * Consultation (Urgent) - Specialty Diagnoses / Procedures Referred By Althea gonzalez Referred To Contact Hematology and Oncology Diagnoses PULMONARY EMBOLISM Aysha Palencia APRN [address] [place] [address] [facility] Hem [address]c [address] [place] [address] Referral ID Status Reason Start Date Expiration Date V isits Requested Visits Authorized [id number] Consult, Test & Treat Connection Center 02/14/2018 02/14/2019 1 1 Encounter Details Date Type Department Care Team (Late st Contact Info) Description 04/29/2018 11:00 AM EST Office Visit Hematology [place] [address] Jessica Simpson MD [facility] [address] [place] [address] Other acute pulmonary embolism with [...] were not included. [facility] [place] [address] THROMBOSIS CONSULTATION DATE OF VISIT 04/29/2018 Patient [...] in January 2018. She was sent to [facility], but because the CT machine was broken. Subsequently she went to [facility] and wasdiagnosed with right sided [...] and was seen by Dr. Norman, our vessel builder in 2010. She received 2 units of [...] Dubois MD Verified: ??04/29/2018 ?Hematopathologist Performed at: ??-[facility] Dept. of Pathology, [place], [place] DISCUSSION The findings are comaptible with the reported history of iron deficiency. ADDITIONAL STUDIES WBC ??6.03o153/uL, RBC 5.18x10 6/uL, HGB 11.4g/dL, HCT 41%, [...] EDT) Ferritin 22(L) 30 - 400 ng/mL [facility] Comment: Pediatric reference ranges not verified at [facility], interpret with caution. Reference ranges for females greater than 50 years of age approach values for men, i.e., 30-400 ng/mL. Blood specimen (specimen) 09/02/2018 10:32 AM EDT 09/02/2018 10:56 AM EDT Narrative Resulting Agency Comment Spec In Lab Jessica Simpson MD CHEMISTRY ORDERABLES Performing Organization Address City/[facility]/ZIP Co de Phone Number [facility] [place] [address] * (ABNORMAL) Iron and TIBC (09/02/2018 10:32 AM EDT) Pathologist [facility] Iron 48 30 - 150 mcg/dL [facility] TIBC 271 250 - 450 mcg/dL [facility] Iron Saturation 18(L) 20 - 50 % [facility] Blood specimen (specimen) 09/02/2018 10:32 AM EDT 09/02/2018 10:56 AM EDT Narrative Resulting Agency Comment Spec In Lab Jessica Simpson MD CHEMISTRY ORDERABLES [facility] [place] [address] * Duplex for DVT, Leg, Unilat (09/02/2018 9:40 AM EDT) Pathologist [facility] VB Text Report Department: Vascular Surgery Lab Patient: [id number] (LAUREN WATKINS) CPT: 89615 ICD10: I82.409;I82.541 Referring Physician: JESSICA SIMPSON ?? [...] Simpson MD VASCULAR ORDERABLES Performing Organization Address [facility] Co de Phone Number [id number] * Peripheral Smear Review (04/29/2018 12:27 PM EST) Peripheral Smear Review See Comment [facility] Comment: When completed by the Pathologist, report [id number] will display under Hematopathology Reports. Blood specimen (specimen) 04/29/2018 12:27 PM EST 04/29/2018 12:44 PM EST Narrative Resulting Agency Comment Spec In Lab Jessica Simpson MD HEMATOLOGY ORDERABLE S Performing Organization Address City/[facility] Co de Phone Number [facility] [place] [address] * Reticulocyte Count (04/29/2018 12:27 PM EST) Reticulocyte % 1.0 0.7 - 2.5 % [facility] Retic Abs # 0.050 0.020 - 0.110 x10(6)/mcL [facility] Immature Retic% 8.8 0.5 - 13.8 % [facility] Reticulated Hgb 30.7 29.8 - 39.4 pg [facility] Blood specimen (specimen) 04/29/2018 12:27 PM EST 04/29/2018 12:44 PM EST Narrative Resulting Agency Comment Spec In Lab Jessica Simpson MD HEMATOLOGY ORDERABLE S Performing Organization Address [facility] Co de Phone Number [facility] [place] [address] * (ABNORMAL) Iron and TIBC (04/29/2018 12:27 PM EST) Iron 23(L) 30 - 150 mcg/dL [facility] TIBC 284 250 - 450 mcg/dL [facility] Iron Saturation 8(L) 20 - 50 % [facility] Blood specimen (specimen) 04/29/2018 12:27 PM EST 04/29/2018 12:44 PM EST Narrative Resulting Agency Comment Spec In Lab Jessica Simpson MD CHEMISTRY ORDERABLES Performing Organization Address City/[facility]/ZIP Co de Phone Number [facility] [place] [address] * (ABNORMAL) Ferritin (04/29/2018 12:27 PM EST) Ferritin 23(L) 30 - 400 ng/mL [facility] Comment: Pediatric reference ranges not verified at [facility], interpret with caution. Reference ranges for females greater than 50 years of age approach values for men, i.e., 30-400 ng/mL. Blood specimen (specimen) 04/29/2018 12:27 PM EST 04/29/2018 12:44 PM EST Narrative Resulting Agency Comment Spec In Lab Jessica Simpson MD CHEMISTRY ORDERABLES [facility] [place] [address] documented in this encounter Visit Diagnoses Diagnosis Other acute pulmonary embolism with acute cor pulmonale- Primary Microcytic anemia Iron deficiency anemia, unspecified Recurrent deep vein thrombosis (DVT) documented in this encounter Care Teams Chief Estimator Relationship Specialty Start Date End Date Teresa Trujillo APRN [address] [place] [address] PCP - General Family Medicine 02/14/18 documented as of this encounter
--- OUTSIDE RECORDS SUMMARY | 2023-11-05 13:48 | XMS_ITS | Encounter Summary ---
Author Organization [facility] [place] [address] Care Team Providers Care Pattern Shop Supervisor Name Role Phone Teresa Trujillo APRN Primary Care Provider [phone] Encounter Details Date Type Department Care Team (Late st Contact Info) Description 09/09/2023 Interpretation Only [address] [address] Aysha Palencia APRN [address] [place] [address] Social History Tobacco Use Types Packs/Day Years [...] PM EDT) PT CLASS O RAD ADMITDTTM [id number] RAD PT RAD MD INFO [id number]^Talha^ Aysha RAD EXAM DESC ULOEXR^US Lower Ext [...] have questions please contact the health manager intensive care unit that requested your imaging first. ? Electronically signed by: Ricardo Zapien MD, [facility] ([phone]), at 09/09/2023 2:07 PM Narrative 09/09/2023 2:07 [...] who have questions please contactthe health manager intensive care unit that requested your imaging first. Electronically signed by: Ricardo Zapien MD, [facility]([phone]), at 09/09/2023 2:07 PM Aysha Palencia APRN PACS IMAGES documented in this encounter Visit Diagnoses Not on filedocumented in this encounter Care Teams Pattern Shop Supervisor Relationship Specialty Start Date End Date Teresa Trujillo APRN [address] [place] [address] PCP - General Family Medicine 02/14/18 documented as of this encounter
--- OUTSIDE RECORDS SUMMARY | 2023-11-05 13:48 | XMS_ITS | Encounter Summary ---
Author Organization [facility] [place] [address] Care Team Providers Care Smelter Charger Name Role Phone Regina Sherwood APRN Primary Care Provider Encounter Details Date Type Department Care Team (Late st Contact Info) Description 04/18/2010 10:10 AM EST - 04/18/2010 11:59 PM [facility] Hospital Encounter [place]ology [place] [address] Social History Tobacco Use Types Packs/Day Years [...] on filedocumented in this encounter Care Teams Smelter Charger Relationship Specialty Start Date End Date Regina Sherwood APRN PCP - General 03/28/10 02/13/18 documented as of this encounter
--- OUTSIDE RECORDS SUMMARY | 2023-11-05 13:48 | XMS_ITS | Clinical Summary ---
Author Organization [facility] Address [address] [place] [address] Care Team Providers Care Peg Driver Name Role Phone Teresa Trujillo APRN Primary Care Provider [phone] Social History Tobacco Use Types Packs/Day Years [...] COVID-19 Vaccine (2022-24 season) 2022 Care Teams Peg Driver Relationship Specialty Start Date End Date Teresa Trujillo APRN [address] [place] [address] PCP - General 10/06/15
--- OUTSIDE RECORDS SUMMARY | 2023-11-05 13:48 | XMS_ITS | Encounter Summary ---
Author Organization [facility] Address [address] [place] [address] Care Team Providers Care Braided Rug Maker Name Role Phone Mango Magana MD Primary Care Provider [phone] Encounter Details Date Type Department Care Team (Latest Contact Info) Description 10/03/2015 9:45 EDT - 10/03/2015 23:59 EDT Hospital Encounter [address] [address] Unknown, Provider, Discharge Disposition: Home or Self Care Social History Tobacco Use Types Packs/Day Years Used Date Smoking Tobacco: Never Assessed Sex and Gender Information Value Date Recorded Sex Assigned at Not on file Gender Identity Not on file Sexual Orientation Not on file documented as of this encounter Discharge Disposition Disposition Code Departure Means Destination Home or Self [facility] documented in this encounter Plan of Treatment Not on file documented as of this encounter Visit Diagnoses Not on filedocumented in this encounter Care Teams Braided Rug Maker Relationship Specialty Start Date End Date Mango Magana MD [address] [facility] [place] [address] PCP - General 07/12/08 10/05/15 documented as of this encounter
--- OUTSIDE RECORDS SUMMARY | 2023-11-05 13:48 | XMS_ITS | Encounter Summary ---
Author Organization [facility] [place] [address] Care Team Providers Care Aircraft Hydraulic Equipment Mechanic Name Role Phone Teresa Trujillo ELISSA Primary Care Provider [phone] Encounter Details Date Type Department Care Team (Late st Contact Info) Description 11/16/2021 Interpretation Only [address] [phone] Momo Griffiths MD [address] [place] [address] Social History Tobacco Use Types Packs/Day Years [...] E RAD ADMITDTTM RAD PT RAD INFO [id number]^FINDL EY^MOMO CASANOVA RAD EXAM DESC CTTHAO^CT ANGIOGRAPHY [...] who have questions please contact the health wound care center consultant that requested your imaging first. ? Electronically signed by: Clary Smart MD, [facility] ([phone]), at 11/16/2021 4:45 PM Narrative 11/16/2021 4:45 [...] patients who have questions please contactthe health wound care center consultant that requested your imaging first. Electronically signed by: Clary Smart MD, [facility]([phone]), at 11/16/2021 4:45 PM Momo Griffiths MD IMG CT ORDERABL ES documented in this encounter Visit Diagnoses Not on filedocumented in this encounter Care Teams Aircraft Hydraulic Equipment Mechanic Relationship Specialty Start Date End Date Teresa Trujillo APRN [address] [place] [id number] PCP - General Family Medicine 02/14/18 documented as of this encounter
--- OUTSIDE RECORDS SUMMARY | 2023-11-05 13:48 | XMS_ITS | Encounter Summary ---
Author Organization [facility] Address [facility] [place] [address] Care Team Providers Care Personal Lines Agent Name Role Phone Regina Sherwood APRN Primary Care Provider [phone] Encounter Details Date Type Department Care Team (Late st Contact Info) Description 06/12/2010 Abstract Hematology [place] [address] Sanket Norman Jr., MD [facility] HEMATOLOGY/[place] [address] Social History Tobacco Use Types Packs/Day Years Used Date Smoking Tobacco: Never Assessed Sex and Gender Information Value Date Recorded Sex Assigned at Not on file Gender Identity Not on file Sexual Orientation Not on file documented as of this encounter Plan of Treatment Not on file documented as of this encounter Visit Diagnoses Not on filedocumented in this encounter Care Teams Personal Lines Agent Relationship Specialty Start Date End Date Regina Sherwood APRN PCP - General 03/28/10 02/13/18 documented as of this encounter
--- OUTSIDE RECORDS SUMMARY | 2023-11-05 13:48 | XMS_ITS | Encounter Summary ---
Author Organization [facility] Address [facility] [place] [address] Care Team Providers Care Fiscal Specialist Name Role Phone Presley, Regina BOWERS Primary Care Provider Encounter Details Date Type Department Care Team (Late st Contact Info) Description 03/28/2010 9:45 AM EST - 03/28/2010 11:59 PM EST Hospital Encounter Hematology [place] [address] Social History Tobacco Use Types Packs/Day Years [...] (ABNORMAL) FERRITIN (03/28/2010 9:51 AM EST) Pathologist [facility] Ferritin 3(L) 15 - 150 ng/mL CERNER MILLENNIUM Comment: Pediatric reference ranges not verified at [facility], interpret with caution. Reference ranges for females greater than 50 years of age approach values for men, i.e., 30-400 ng/mL. Blood specimen (specimen) 03/28/2010 9:51 AM EST 03/28/2010 10:09 AM EST Sanket Norman Jr., MD CHEMISTRY OR DERABLES Performing Organization Address [facility]/ZIP Co de Phone Number CERNELY SALDIVARENNIUM * (ABNORMAL) RETICULOCYTE COUNT (03/28/2010 9:51 AM EST) Pathologist [facility] Reticulocyte % 0.8 0.5 - 2.4 % [...] MD HEMATOLOGY O RDERABLES Performing Organization Address [facility] de Phone Number CERNER MILLENNIUM * (ABNORMAL) [...] MD HEMATOLOGY O RDAZIZA Performing Organization Address [facility]/State/ZIP Co de Phone Number CERNER MILLENNIUM * [...] MD CHEMISTRY OR DERABLES Performing Organization Address City/State/[facility] Phone Number [facility] documented in this encounter Visit Diagnoses Not on filedocumented in this encounter Care Teams Fiscal Specialist Relationship Specialty Start Date End Date Regina Sherwood APRN PCP - General 03/28/10 02/13/18 documented as of this encounter
--- OUTSIDE RECORDS SUMMARY | 2023-11-05 13:48 | XMS_ITS | Encounter Summary ---
Author Organization [facility] Address [address] [place] [address] Care Team Providers Care Saw Repairer Name Role Phone Unavailable Primary Care Provider Unavailabl e Encounter Details Date Type Department Care Team (Late st Contact Info) Description 07/07/2008 Orders Only [facility] - [facility] ([facility] [address] [place] [phone] Carlo Bullock MD [address] [place] [address] Social History Tobacco Use Types Packs/Day Years [...] ? WATKINS, LAUREN ? Accession #: ? [id number] ? : ? 1960 (Age: 48) ??F ? Collect Date: ? 07/07/2008 ? Location: ? [facility] ? Receive Date: ? 07/08/2008 ? Provider: CARLO BULLOCK MD ? Copy to: JAKE UDAY APPLICATION DEVELOPMENT LIAISON ? Final Pathologic Diagnosis: ? Colon, 25.0 [...] MD PATHOLOGY ORDERABLES [facility] [address] [place] [address] documented in this encounter Visit Diagnoses Not on filedocumented in this encounter
--- OUTSIDE RECORDS SUMMARY | 2023-11-05 13:48 | XMS_ITS | Encounter Summary ---
Author Organization [facility] Address [address] [place] [address] Care Team Providers Care Pulping Machine Operator Name Role Phone Unavailable Primary Care Provider Unavailabl e Encounter Details Date Type Department Care Team (Late st Contact Info) Description 11/27/2006 15:14 EDT Hospital Encounter [facility] - Other [address] [place] [address] Regina Sherwood ARNP [address] [place] [address] Discharge Disposition: Auto Discharge Social History Tobacco [...]
--- OUTSIDE RECORDS SUMMARY | 2023-11-05 13:48 | XMS_ITS | Referral Summary ---
Author Organization [facility] Address [address] [place] [address] Care Team Providers Care Market Intelligence Consultant Name Role Phone Teresa Trujillo CLINICAL DOCUMENTATION SPEC Primary Care Provider [phone] Social History Tobacco Use Types Packs/Day Years Used Date Smoking Tobacco: Never Assessed Sex and Gender Information Value Date Recorded Sex Assigned at Not on file Gender Identity Not on file Sexual Orientation Not on file Plan of Treatment Not on file Care Teams Market Intelligence Consultant Relationship Specialty Start Date End Date Teresa Trujillo, ELISSA [address] [place] [address] PCP - General 10/06/15
[2023-11-05 16:43] LABS: HCT 30.9 % (36.0-46.0); HGB 8.4 g/dL (11.2-15.7); MCH 20.3 pg (27.0-33.0); MPV 10.5 fL (8.0-11.0); Platelet Count 474 10^3/uL (130-400); RBC 4.13 10^6/uL (3.93-5.22); RDW-SD 62.9 fL; WBC 6.58 10^3/uL (4.4-10.8)
[2023-11-05 16:58] LABS: Iron 9 ug/dL (50-170); Total Iron Binding Capacity 370 ug/dL (250-450); Transferrin Sat 2 % (15-50)
[2023-11-05 17:05] LABS: Ferritin 19 ng/mL (8-252)
[2023-11-05 17:16] LABS: RDW 23.7 % (11.7-14.6)
[2023-11-05 17:18] LABS: MCHC 27.2 % (32.0-36.0); MCV 75 fL (80-95)
== END 2023-11-05 13:40 | disposition home or self-care (01) ==
LOC: NCHCN 13:39
PROVIDERS: PCP Nurse Practitioner Family; Visit Provider Nurse Practitioner Family
DX: D50.9 Iron deficiency anemia, unspecified (principal)
CPT/HCPCS: 85027; 82728; 83540; 83550

== ENCOUNTER 2023-11-25 10:00 | Outpatient (RCR) | payer BC, SELFPAY ==
[2023-11-20] MEDS: Normal Saline Flush 10 ML SYR IVP (09:36)
[2023-11-20] MEDS: IRON SUCROSE COMPLEX 300 MG in Normal Saline 250 ML 176.667 MG IVPB (09:52)
[2023-11-25] MEDS: IRON SUCROSE COMPLEX 300 MG in Normal Saline 250 ML 176.667 MG IVPB (10:32)
[2023-11-25] MEDS: Normal Saline Flush 10 ML SYR IVP (10:32)
== END 2023-11-25 23:59 | disposition home or self-care (01) ==
LOC: INF 10:00
PROVIDERS: PCP Nurse Practitioner Family; Visit Provider Family Medicine
DX: D64.9 Anemia, unspecified (principal)
CPT/HCPCS: 96365; 96366; J1756

== ENCOUNTER 2023-12-02 01:52 | Outpatient (RCR) | payer BC, SELFPAY ==
[2023-12-02] MEDS: IRON SUCROSE COMPLEX 300 MG in Normal Saline 250 ML 176.667 MG IVPB (10:07)
[2023-12-02] MEDS: Normal Saline Flush 10 ML SYR IVP (10:08)
== END 2023-12-26 23:59 | disposition home or self-care (01) ==
LOC: INF 01:52
PROVIDERS: PCP Nurse Practitioner Family; Visit Provider Family Medicine
DX: D50.9 Iron deficiency anemia, unspecified (principal)
CPT/HCPCS: 96365; 96366; J1756

== ENCOUNTER 2025-01-19 10:07 | Outpatient (REF) | payer BC, SELFPAY ==
--- NOTE | 2025-01-19 08:45 | PAPFT_PTH ---
PATIENT: Lauren Paula LOC: [facility]#:[id number] AGE/SX: 64/F ROOM: RE01/19/[address]: Aysha Palencia : 1960 BED: DIS: 01/19/2025 SPEC #: [id number] RECD: 01/19/25 18:12 STATUS: AMBER REQ #: [id number] LAUREL: 01/19/25 08:[address]: Aysha Palencia DEPT: [facility] Cytology RECD BY: Jennifer Cheatham ENTERED: 01/19/25 18:13 SP TYPE: PAPFT OTHR DR: Teresa Trujillo Tissues: 1 - CX/ENDOCX FOR PAP SMEARS Procedures: PAP THIN PREP/[facility] Screening HPV DNA PROBE Comments: [id number] (HPV 16 & 18/45)
[2025-01-19 16:17] LABS: HCT 49.2 % (36.0-46.0); HGB 15.6 g/dL (11.2-15.7); MCH 27.8 pg (27.0-33.0); MCHC 31.7 % (32.0-36.0); MCV 88 fL (80-95); MPV 10.2 fL (8.0-11.0); Platelet Count 311 10^3/uL (130-400); RBC 5.61 10^6/uL (3.93-5.22); RDW 14.2 % (11.7-14.6); RDW-SD 46.1 fL; WBC 6.52 10^3/uL (4.4-10.8)
[2025-01-19 16:29] LABS: Iron 84 ug/dL (50-170); Total Iron Binding Capacity 288 ug/dL (250-425); Transferrin Sat 29 % (15-50)
[2025-01-19 17:10] LABS: Ferritin 79 ng/mL (7-271)
== END 2025-01-19 10:08 | disposition home or self-care (01) ==
LOC: NCHCN 10:07
PROVIDERS: PCP Nurse Practitioner Family; Visit Provider Nurse Practitioner Family
DX: Z86.2 Personal history of diseases of the blood and blood-forming organs and certain disorders involving the immune mechanism (principal); Z12.4 Encounter for screening for malignant neoplasm of cervix
CPT/HCPCS: 85027; 88142; 82728; 83540; 83550; 87624